=== PATIENT | female | born 1930 | race Caucasian/White ===

== ENCOUNTER 2016-07-30 11:05 | Inpatient (IN) | payer MEDICARE ==
[2016-07-30] MEDS ORDERED: Acetaminophen TAB* 325 MG PO ONE (11:13)
[2016-07-30] MEDS ORDERED: Ciprofloxacin 400MG IVPREMIX(* 400 MG/200 ML BAG IVPB ONE (11:15)
[2016-07-30] MEDS ORDERED: Vancomycin(*) 1,000 MG in NS 0.9% 250 ML* 250 ML IVPB ONE (11:16)
[2016-07-30] MEDS ORDERED: metroNIDAZOLE IV 500 MG/100ML* 500 MG/100 ML BAG IVPB ONE (11:16)
[2016-07-30 11:41] LABS: Hematocrit 39 % (35-47); Hemoglobin 12.3 g/dl (12.0-16.0); Mean Corpuscular HGB Conc 32 g/dl (31-36); Mean Corpuscular Hemoglobin 30 pg (27-31); Mean Corpuscular Volume 94 fL (80-97); Mean Platelet Volume 10 um3 (7.4-10.4); Red Blood Count 4.11 10^6/ul (4.0-5.4); Red Cell Distribution Width 15 % (10.5-15); White Blood Count 22.4 10^3/ul (3.5-10.8)
[2016-07-30 11:45] LABS: Add Diff/Slide Review? Slide Review Added; Comments Flag Yes
[2016-07-30] MEDS: NS 0.9% 1000 ML* 3,000 ML IV ONE ×6 (11:49→13:52)
[2016-07-30 11:58] LABS: Albumin 2.8 g/dL (3.2-5.2); BUN/Creatinine Ratio 14.5 (8-20); C Reactive Protein 180.92 mg/L (< 5.00); Calcium 8.2 mg/dL (8.6-10.3); EGFR African American 31.9 (>60); EGFR Non-African American 24.8 (>60); Globulin 2.1 g/dL (2-4); Potassium 3.8 mmol/L (3.5-5.0); Total Bilirubin 1.2 mg/dL (0.2-1.0); Total Protein 4.9 g/dL (6.4-8.9)
[2016-07-30 12:00] LABS: Urine Bacteria Absent (Absent); Urine Bilirubin Negative (Negative); Urine Glucose Negative (Negative); Urine Nitrite Negative (Negative)
[2016-07-30 12:05] LABS: Troponin I 0.16 ng/mL (<0.04)
--- NOTE | 2016-07-30 12:13 | RAD ---
INDICATION: Cough. Fever. Sepsis COMPARISON: February 01, 2016 TECHNIQUE: An AP portable view obtained at 1140 hours is submitted. FINDINGS: Bones/Soft Tissues: There are no acute bony findings. Cardiomediastinal: The cardiomediastinal silhouette is normal. Lungs: There are no infiltrates. Pleura: There are no pleural effusions. Other: None IMPRESSION: NO ACTIVE DISEASE.
[2016-07-30 12:15] LABS: Phenytoin 12.5 mcg/mL (10-20)
--- NOTE | 2016-07-30 12:51 | ED ---
Howie Zaldivar Adam, scribed for Silver Kelly MD on 07/30/16 at 1129 . Altered Mental Status - HPI Summary HPI Summary: Pt is an 85 year old female presenting from home [facility]. She was found unresponsive in bed, last seen 3 days ago. Pt has home care Mondays through Fridays. She was tucked in bed on Saturday and then today when the home care came to check on her they found her unresponsive. EMS noted a fever of 103. BP 60. O2 sat 88. HR 120. Minimal verbal response. She was administered IV fluid. Her HR had dropped to 110 and her BP came up to 88. Pt is talking, has no complaints. She is incontinent of stool and urine. Denies CP, SOB, cough, N/V/D , fever, chills. Patient is Level 5 Caveat. History obtained from EMS and family. - History Of Current Complaint Chief Complaint: EDFever Stated Complaint: UNRESPONSIVE Time Seen by Provider: 07/30/16 11:10 Hx Obtained From: Family/Sidehand, EMS Hx From Patient Unobtainable Due To: Altered Mental Status - Level 5 Caveat Onset/Duration: Unknown Timing: Constant Severity Initially: Moderate Severity Currently: Moderate Character: Responsiveness Aggravating Factor(s): Unknown Alleviating Factor(s): Nothing Associated Signs And Symptoms: Positive: Negative - Allergies/Home Medications Allergies/Adverse Reactions: Allergies Allergy/AdvReac Type Severity Reaction Status Date / Time Penicillins [PCN] Allergy Severe anaph Verified 08/26/15 13:45 Zolpidem [From Ambien] Allergy Unknown Verified 08/26/15 13:45 Reaction Details Oxycodone AdvReac Intermediate Nausea Verified 08/26/15 13:45 Rofecoxib [From Vioxx] AdvReac Intermediate Edema Verified 08/26/15 13:45 Solifenacin [From Vesicare] AdvReac Intermediate See Comment Verified 08/26/15 13:45 Home Medications: Home Medications Clotrimazole 1% TOPICAL (NF) [Lotrimin 1% TOPICAL (NF)] 1 applic TOPICAL BID PRN 07/30/16 [History Confirmed 07/30/16] Fluticasone Propionate [Cutivate] 0.05 % TOPICAL BID PRN 07/30/16 [History Confirmed 07/30/16] Nystatin TOP POWDER* 1 applic TOPICAL BID 07/30/16 [History Confirmed 07/30/16] Senna TAB* [Senokot TAB*] 3 tab PO DAILY 07/30/16 [History Confirmed 07/30/16] PMH/Surg Hx/FS Hx/Imm Hx Endocrine/Hematology History: Denies: Hx Anticoagulant Therapy, Hx Blood Disorders, Hx Blood Transfusions, Hx Bone Marrow Disease, Hx Diabetes, Hx Systemic Lupus Erythematosus, Hx Sickle Cell Disease, Hx Thyroid Disease, Hx Anemia, Hx Unexplained Bleeding, Other Endocrine/Hematological Disorders Cardiovascular History: Reports: Hx Hypertension Denies: Hx Angina, Hx Angioplasty, Hx Auto Implanted Cardiovert Defib, Hx Cardiac Arrest, Hx Cardiomegaly, Hx Congenital Heart Disease, Hx Congestive Heart Failure, Hx Coronary Artery Disease, Hx Deep Vein Thrombosis, Hx Hypercholesterolemia, Hx Hypotension, Hx Pacemaker/ICD, Hx Peripheral Vascular Disease, Hx Rheumatic Fever, Hx Syncope, Hx Valvular Heart Disease, Other Cardiovascular Problems/Disorders Respiratory History: Denies: Hx Asthma, Hx Chronic Bronchitis, Hx Chronic Obstructive Pulmonary Disease (COPD), Hx Cystic Fibrosis, Hx Lung Cancer, Hx Pleural Effusion, Hx Pneumonia, Hx Pulmonary Edema, Hx Pulmonary Embolism, Hx Seasonal Allergies, Hx Sleep Apnea, Other Respiratory Problems/Disorders GI History: Denies: Hx Cirrhosis, Hx Crohn's Disease, Hx Diverticulosis, Hx Gall Bladder Disease, Hx Gastroesophageal Reflux Disease, Hx Gastrointestinal Bleed, Hx Hiatal Hernia, Hx Irritable Bowel, Hx Jaundice, Hx Obstructive Bowel, Hx Ileostomy, Hx Pyloric Stenosis, Hx Ulcer, Other GI Disorders History: Denies: Hx Acute Renal Failure, Hx Benign Prostatic Hyperplasia, Hx Chronic Renal Failure, Hx Dialysis, Hx Kidney Infection, Hx Kidney Stones, Other Problems/Disorders Musculoskeletal History: Reports: Hx Arthritis, Hx Back Problems, Hx Osteoporosis, Other Musculoskeletal History Denies: Hx Bursitis, Hx Congenital Bone Abnormalities, Hx Fibromyalgia, Hx Gout, Hx Orthopedic Injury, Hx Scoliosis, Hx Tendonitis Sensory History: Reports: Hx Contacts or Glasses Denies: Hx Cataracts, Hx Eye Injury, Hx Eye Prosthesis, Hx Glaucoma, Hx Macular Degeneration, Hx Vision Problem, Hx Deafness, Hx Hearing Aid, Hx Hearing Problem, Other Sensory Impairments Opthamlomology History: Reports: Hx Contacts or Glasses Denies: Hx Cataracts, Hx Eye Injury, Hx Eye Prosthesis, Hx Glaucoma, Hx Macular Degeneration, Hx Vision Problem, Other Sensory Impairments Neurological History: Reports: Hx Migraine, Hx Seizures, Other Neuro Impairments /Disorders - hx of concussion at 19yrs old Denies: Hx Dementia, Hx Developmental Delay, Hx Headaches, Hx Spinal Cord Injury, Hx Transient Ischemic Attacks (TIA) Psychiatric History: Reports: Hx Depression, Hx Inpatient Treatment, Hx Community Mental Health Tx Denies: Hx Anxiety, Hx Attention Deficit Hyperactivity Disorder, Hx Eating Disorder, Hx Panic Disorder, Hx Post Traumatic Stress Disorder, Hx Schizophrenia , Hx Bipolar Disorder, Hx Suicide Attempt, Hx Substance Abuse, Other Psychiatric Issues/Disorders - Cancer History Hx Chemotherapy: No Hx Radiation Therapy: No - Surgical History Surgery Procedure, Year, and Place: BILAT KNEES, appy, hysterectomy Hx Anesthesia Reactions: No - Immunization History Date of Tetanus Vaccine: unknown Date of Influenza Vaccine: unknown Infectious Disease History: Denies: Hx Clostridium Difficile, Hx Hepatitis, Hx Human Immunodeficiency Virus (HIV), Hx Shingles, Hx Tuberculosis, Traveled Outside the in Last 30 Days - Family History Known Family History: Positive: Other - Negative anxiety, negative depression - Social History Occupation: Retired Lives: Alone - Has home care Mondays through Fridays Alcohol Use: None Hx Substance Use: No Substance Use Type: Reports: None Hx Tobacco Use: No Smoking Status (MU): Never Smoked Tobacco Review of Systems Negative: Fever, Chills Negative: Chest Pain Negative: Shortness Of Breath, Cough Negative: Vomiting, Diarrhea, Nausea Neurological: Other - Decreased responsiveness All Other Systems Reviewed And Are Negative: No - Comments Additional Review of Systems Comments: Level 5 Caveat Physical Exam - Summary Physical Exam Summary: The patient is in mild distress. The skin is pale and diaphoretic. Decreased skin turgor. Not mottled or cyanotic. HEENT: Pupils are equal and reactive. Conjunctivae are clear. Both TM's are normal. No rhinorrhea. Oral mucosa extremely dry. Neck is supple with full range of motion and non-tender. There are no carotid bruits. There is no neck vein distension. Respiratory: Diminished breath sounds. Rales in left bases. Cardiovascular: Heart is tachycardic. Regular rhythm with no murmur. Had radial pulses which were faint. Abdomen: The abdomen is soft and non-tender. There are normal bowel sounds heard in all four quadrants and there is no organomegaly palpated. Musculoskeletal: Capillary refill 4 seconds. Neurological: Patient answers yes and no questions. History of previous stroke - facial droop, difficulty moving all 4 extremities, needs assistance. Psychiatric: The patient has an appropriate affect and does not exhibit any anxiety or depression. Buttocks: Beginning of some breakdown of skin on patient's buttocks, most notably on the left side. No ulcers noted. Incontinence of urine and stool. Stools are brown. Triage Information Reviewed: Yes Vital Signs On Initial Exam: Initial Vitals Pulse Resp BP Pulse Ox 108 22 88/54 95 07/30/16 11:08 07/30/16 11:08 07/30/16 11:08 07/30/16 11:08 Vital Signs Reviewed: Yes Completion Of Physical Exam Limited Due To: Level 5 Diagnostics - Vital Signs Vital Signs Pulse Resp BP Pulse Ox 07/30/16 11:08 108 22 88/54 95 - Laboratory Lab Results: Lab Results 07/30/16 07/30/16 07/30/16 Range/Units 11:19 11:19 11:19 WBC 22.4 H (3.5-10.8) 10^3/ul RBC 4.11 (4.0-5.4) 10^6/ul Hgb 12.3 (12.0-16.0) g/dl Hct 39 (35-47) % MCV 94 (80-97) fL MCH 30 (27-31) pg MCHC 32 (31-36) g/dl RDW 15 (10.5-15) % Plt Count 133 L (150-450) 10^3/ul MPV 10 (7.4-10.4) um3 Neut % (Auto) 91.0 H (38-83) % Lymph % (Auto) 1.7 L (25-47) % Lake % (Auto) 6.9 (1-9) % Eos % (Auto) 0 (0-6) % Baso % (Auto) 0.4 (0-2) % Absolute Neuts (auto) 20.4 H (1.5-7.7) 10^3/ul Absolute Lymphs (auto) 0.4 L (1.0-4.8) 10^3/ul Absolute Monos (auto) 1.5 H (0-0.8) 10^3/ul Absolute Eos (auto) 0 (0-0.6) 10^3/ul Absolute Basos (auto) 0.1 (0-0.2) 10^3/ul Absolute Nucleated RBC 0.01 10^3/ul Nucleated RBC % 0 INR (Anticoag Therapy) 1.32 H (0.89-1.11) APTT 35.2 (26.0-36.3) seconds Sodium 140 (133-145) mmol/L Potassium 3.8 (3.5-5.0) mmol/L Chloride 105 (101-111) mmol/L Carbon Dioxide 23 (22-32) mmol/L Anion Gap 12 H (2-11) mmol/L BUN 28 H (6-24) mg/dL Creatinine 1.93 H (0.51-0.95) mg/dL Est GFR ( Amer) 31.9 (>60) Est GFR (Non-Af Amer) 24.8 (>60) BUN/Creatinine Ratio 14.5 (8-20) Glucose 105 H (70-100) mg/dL Lactic Acid (0.5-2.0) mmol/L Calcium 8.2 L (8.6-10.3) mg/dL Total Bilirubin 1.20 H (0.2-1.0) mg/dL AST 32 (13-39) U/L ALT 11 (7-52) U/L Alkaline Phosphatase 45 (34-104) U/L Total Creatine Kinase 209 (10-223) U/L Troponin I 0.16 H* (<0.04) ng/mL C-Reactive Protein 180.92 H (< 5.00) mg/L Total Protein 4.9 L (6.4-8.9) g/dL Albumin 2.8 L (3.2-5.2) g/dL Globulin 2.1 (2-4) g/dL Albumin/Globulin Ratio 1.3 (1-3) Urine Color Urine Appearance Urine pH (5-9) Ur Specific Comfort (1.010-1.030) Urine Protein (Negative) Urine Ketones (Negative) Urine Blood (Negative) Urine Nitrate (Negative) Urine Bilirubin (Negative) Urine Urobilinogen (Negative) Ur Leukocyte Esterase (Negative) Urine WBC (Auto) (Absent) Urine RBC (Auto) (Absent) Urine Bacteria (Absent) Urine Glucose (Negative) Phenytoin 12.5 (10-20) mcg/mL 07/30/16 07/30/16 Range/Units 11:19 11:35 WBC (3.5-10.8) 10^3/ul RBC (4.0-5.4) 10^6/ul Hgb (12.0-16.0) g/dl Hct (35-47) % MCV (80-97) fL MCH (27-31) pg MCHC (31-36) g/dl RDW (10.5-15) % Plt Count (150-450) 10^3/ul MPV (7.4-10.4) um3 Neut % (Auto) (38-83) % Lymph % (Auto) (25-47) % Lake % (Auto) (1-9) % Eos % (Auto) (0-6) % Baso % (Auto) (0-2) % Absolute Neuts (auto) (1.5-7.7) 10^3/ul Absolute Lymphs (auto) (1.0-4.8) 10^3/ul Absolute Monos (auto) (0-0.8) 10^3/ul Absolute Eos (auto) (0-0.6) 10^3/ul Absolute Basos (auto) (0-0.2) 10^3/ul Absolute Nucleated RBC 10^3/ul Nucleated RBC % INR (Anticoag Therapy) (0.89-1.11) APTT (26.0-36.3) seconds Sodium (133-145) mmol/L Potassium (3.5-5.0) mmol/L Chloride (101-111) mmol/L Carbon Dioxide (22-32) mmol/L Anion Gap (2-11) mmol/L BUN (6-24) mg/dL Creatinine (0.51-0.95) mg/dL Est GFR ( Amer) (>60) Est GFR (Non-Af Amer) (>60) BUN/Creatinine Ratio (8-20) Glucose (70-100) mg/dL Lactic Acid 3.9 H* (0.5-2.0) mmol/L Calcium (8.6-10.3) mg/dL Total Bilirubin (0.2-1.0) mg/dL AST (13-39) U/L ALT (7-52) U/L Alkaline Phosphatase (34-104) U/L Total Creatine Kinase (10-223) U/L Troponin I (<0.04) ng/mL C-Reactive Protein (< 5.00) mg/L Total Protein (6.4-8.9) g/dL Albumin (3.2-5.2) g/dL Globulin (2-4) g/dL Albumin/Globulin Ratio (1-3) Urine Color Izabella Urine Appearance Turbid Urine pH 7.0 (5-9) Ur Specific Comfort 1.016 (1.010-1.030) Urine Protein 2+(100 mg/dl) H (Negative) Urine Ketones Trace H (Negative) Urine Blood 1+ H (Negative) Urine Nitrate Negative (Negative) Urine Bilirubin Negative (Negative) Urine Urobilinogen Negative (Negative) Ur Leukocyte Esterase 2+ H (Negative) Urine WBC (Auto) 3+(>20/hpf) H (Absent) Urine RBC (Auto) 1+(3-5/hpf) H (Absent) Urine Bacteria Absent (Absent) Urine Glucose Negative (Negative) Phenytoin (10-20) mcg/mL Result Diagrams: 07/30/16 11:19 07/30/16 11:19 Lab Statement: Any lab studies that have been ordered have been reviewed, and results considered in the medical decision making process. - Radiology CXR Radiology Interpretation Completed By: Radiologist - IMPRESSION: NO ACTIVE DISEASE. - EKG 11:07 Cardiac Rate: Tachycardia - 108 BPM EKG Rhythm: Sinus Tachycardia EKG Interpretation: No ST elevation - Additional Comments Diagnostic Additional Comments: Troponin I - 0.16 Lactic Acid - 3.9 Re-Evaluation - Re-Evaluation First Eval Re-Evaluation Time: 11:54 - Pt is looking better. Has radial pulse. She is more alert. She c/o chills. Change: Improved Altered Mental Statu Course/Dx - Course Course Of Treatment: Patient will be started on IV abx.x 3 for sepsis of unknown source-Flagyl, Vancomycin and Cipro. She was adminstered 3 liters of normal saline and given tylenol for her fever. this is a critcally ill patient who will be admitted to the ICU with sepsis. 11:59 - BP is 77 palpable with radial pulses. - Diagnoses Differential Diagnosis/HQI/PQRI: Hyperthermia, Hypoxia, Metabolic Disorder, Sepsis, Other - pneumonia, urinary tract infection, hypotension, Discharge Diagnoses: Sepsis, Hypotension, Fever - Provider Notifications Discussed Care Of Patient With: Dr. Hernandez (hospitalist) at 12:06. Patient will be admitted. - Critical Care Time Critical Care Time: 30-74 min - 45 minutes Discharge - Discharge Plan Condition: Stable Disposition: ADMITTED TO [facility] Referrals: Shaun Crouch MD [Primary Care Provider] - The documentation as recorded by the Howie wilson Adam accurately reflects the service I personally performed and the decisions made by me, Silver Kelly MD.
[2016-07-30] MEDS ORDERED: Cefepime(*) 2 GM in NS 0.9% 50 ML* 50 ML IVPB SCH (13:00)
[2016-07-30] MEDS ORDERED: Vancomycin per Pharmacy* NOTE FOLLOW UP PRN (13:14)
[2016-07-30] MEDS ORDERED: Norepinephrine 16MCG/ML IVPRE* 4,000 MCG/250 ML BAG IV ONE (13:20)
[2016-07-30] MEDS ORDERED: Hydrocortisone INJ* 100 MG VIAL ONE (13:20)
[2016-07-30] MEDS: Hydrocortisone INJ* 100 MG VIAL IV SCH ×2 (13:22→21:57)
[2016-07-30] MEDS: Norepinephrine 16MCG/ML IVPRE* 4,000 MCG/250 ML BAG IV SCH ×2 (13:22→20:48)
[2016-07-30 13:27] LABS: Immature Granulocytes 10 % (0-9); Metamyelocytes % 1 % (0-2); Neutrophil % 87 % (38-83); RBC Morphology Normal (Normal)
[2016-07-30] MEDS ORDERED: Vancomycin(*) 1,250 MG in NS 0.9% 250 ML* 250 ML IVPB ONE (14:00)
[2016-07-30] MEDS: NS 0.9% 1000 ML* 1,000 ML IV SCH ×2 (15:35→20:40)
--- NOTE | 2016-07-30 16:00 | PN ---
Progress Note - Progress Note Note: CRITICAL CARE MEDICINE Date: 07/30/16 Time: 1400 Patient seen and discussed with COMMODITY TRADER. Agree with transfer professor findings and assessment. Vital signs: Reviewed. LABS: Reviewed. IMAGING: Reviewed. MEDICATIONS: Reviewed. ASSESSMENT/PLAN: 85 F with septic shock sec to uti. Perfusion is equilibrating. Intravasc dry and being met with bolus orders and then IVF continued. Component of vasodilation and evenmoreso relative adrenal insuff. Would place on peripheral levophed and give stress dose steroids. Will need a little time with levo but then should be able to come off with adequate Uout and LA clearance. BP likely to be on low end even at baseline. SBP over 90 for now should be adequate. Broad spectrum abx as is until cx f/u. Pt expresses understanding with plans of care. We discussed avoidance of central line and machines which she is in favor of declining as well. Further plan and care per COMMODITY TRADER's note and orders. Supportive and preventative care as ordered. Disposition: ICU, Level 2 Code Status: DNR/DNI Clarence. Harrison Mack DO
[2016-07-30] MEDS ORDERED: NS 0.9% 50 ML* 50 ML ONE (17:10)
[2016-07-30] MEDS: Heparin VIAL(*) 5000 UNITS/ML VIAL (FIVE THOUSAND) SUBCUT SCH ×2 (17:13→21:57)
--- NOTE | 2016-07-30 20:36 | RAD ---
INDICATION: Abdominal pain. COMPARISON: There are no prior studies available for comparison. TECHNIQUE: A CT scan of the abdomen and pelvis was performed without intravenous or oral contrast. Contiguous axial sections were obtained from the lung bases through the symphysis pubis. Images were reconstructed in the coronal and sagittal planes. FINDINGS: There are small dependent bilateral lower lobe infiltrates. No pleural effusion is present. The liver and spleen are normal in size. The liver is decreased in attenuation consistent with fatty infiltration. No significant focal abnormality seen on this noncontrast study. No calcified gallstones are seen. The pancreas appears atrophic and otherwise unremarkable. The adrenal glands are mildly enlarged suggestive of adrenal gland hyperplasia. There are several left renal calculi measuring up to 0.8 cm in size. In addition there are 2 calculi present in the proximal left ureter approximately at the ureteropelvic junction measuring 1.0 x 0.5 and 0.5 x 0.3 cm each. These are causing [id number] hydronephrosis. There is also mild increased density present within the renal pelvis possibly representing hemorrhage although nonspecific. There is a catheter within the urinary bladder. There also appears to be a calculus within the bladder on the right side measuring 1.6 x 0.9 cm in size. The aorta is normal in caliber with moderate calcific plaque present. No significant enlarged retroperitoneal lymph nodes are seen. The stomach, small and large bowel appear nondistended. There is distention of the rectum which is filled with stool. There is no evidence for diverticulitis or colitis. No free intraperitoneal air or fluid is seen. The bones appear osteoporotic. No significant focal osseous abnormality is seen. The results of this exam were called to the referring clinician. IMPRESSION: 1. LEFT RENAL CALCULI AND CALCULI AT THE URETEROPELVIC JUNCTION CAUSING [id number] HYDRONEPHROSIS. 2. BLADDER CALCULUS. 3. FECAL IMPACTION.
[2016-07-30] MEDS: Phenytoin CAP(*) 100 MG CAP.ER PO SCH (21:57)
[2016-07-30] MEDS: OLANzapine TAB* 5 MG PO SCH (22:58)
--- NOTE | 2016-07-31 00:16 | HP ---
HISTORY AND PHYSICAL: DATE OF ADMISSION: 07/30/16 PRIMARY CARE PROVIDER: Eli Zazueta MD ATTENDING PHYSICIAN WHILE IN THE HOSPITAL: Dr. Nereida Swift *(report dictated by Sagar Rizzo NP) CONSULTING PULP MILL SUPERVISOR: Dr. Mack. CHIEF COMPLAINT: Weakness. HISTORY OF PRESENT ILLNESS: Mrs. Adams is an 85-year-old female who has been bedridden for about 5 years ever since a significant fall with residual right lower extremity weakness. She carries a history according to the family a history of arthritis, seizures, obesity, and hypertension, in addition to this, history of B12 deficiency. She came into the ER today because over the weekend , the family had noted that she had gotten progressively weaker. She really was not eating or drinking. Her appetite had been down and she had an episode where she was not feeling good and she just would not get out of bed. She typically gets out of bed with the help of her aide, who is her surrogate decision maker. The patient states that to her knowledge, she has not had any fever. She does feel weak and tired, and she denies having any abdominal pain. She says she has had some worsening back pain, but she does not certainly say to what side and she says she always has back pain, so she is unsure if this is new or a change. She did admit to having some dysuria and frequency. She had been declining over the entire weekend, just not feeling well. She denied any respiratory symptoms such as cough, sore throat, congestion, and rhinorrhea. She denied having any abdominal pain and again no vomiting or diarrhea. She was concerned, came into the ER, was evaluated and found to be in septic shock. In addition to this, found to be in multisystem organ failure. Because of this, the hospitalist service was asked to evaluate for admission. PAST MEDICAL HISTORY: Significant for: 1. Hypertension. 2. Arthritis. 3. Seizures. 4. Chronic back pain. 5. Obesity. 6. B12 deficiency. PAST SURGICAL HISTORY: She has had a right and left total knee replacement. She has had a total abdominal hysterectomy with a bilateral salpingo- oophorectomy and she has had an appendectomy. HOME MEDICATIONS: According to the patient includes: 1. Senna 3 tablets daily. 2. Meclizine 25 mg p.o. t.i.d. as needed. 3. B12 1000 mcg daily. 4. D3 2000 mg daily. 5. Tylenol 650 mg 4 times a day as needed. 6. Milk of mag 15 to 30 cc p.o. every other day as needed. 7. Cutivate 0.05% topically b.i.d. as needed. 8. Lotrimin 1 application topically b.i.d. as needed. 9. Tramadol 50 to 100 mg p.o. t.i.d. as needed. 10. Zoloft 200 mg daily. 11. Zyprexa 5 to 10 mg at bedtime. 12. Nystatin powder 1 application topically b.i.d. 13. Klonopin 1 mg p.o. at bedtime. 14. Phenantoin 100 mg p.o. b.i.d. ALLERGIES TO MEDICATIONS: Include PENICILLIN, AMBIEN, OXYBUTYNIN, VIOXX, and she is also allergic to VESICARE. FAMILY HISTORY: Her mother at the age of 99 from old age according to her. Father had a history of stroke. SOCIAL HISTORY: She does not smoke, she does not drink. Her surrogate decision makers are Rashaun and Wolfgang. REVIEW OF SYSTEMS: There is no documented fever. She denied having any significant weight change. There was no double vision. She denies having any ear discharge. There is no rhinorrhea. She denies having any chest pain. No shortness of breath. Denied having any cough. There is no abdominal pain. There was no nausea, no vomiting. There was dysuria. There was no frequency. No seizures. The family does admit though that she had been shaking at times throughout the weekend, although she was conscious and talking during these whole events. She denied having any seizure like activity. No loss of consciousness. No skin ulcerations. Review of 14 systems completed and all others negative. PHYSICAL EXAMINATION GENERAL: At this time, Mrs. Adams is an 85-year-old female patient. She is sitting in the ER stretcher. She does not appear to be in any acute distress. She is awake and she is alert. She appears well-nourished and well-developed. VITAL SIGNS: Blood pressure of 68/44 with a pulse of 98, her temperature is 100.9, respirations 24, O2 sat 94%. HEENT: Head is atraumatic and normocephalic. Eyes: Sclerae is anicteric. Pupils react to light. Throat: Oral mucosa appeared to be dry. NECK: Supple. 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 LUNGS: Clear to auscultation. There were no wheezes, rales, or rhonchi. HEART: S1 and S2. Regular rate and rhythm. No murmurs, rubs, or gallops. ABDOMEN: Soft, flat, and nontender. Bowel sounds present. EXTREMITIES: Pulses 2+ throughout. She is able to move all 4 extremities. 5/ 5 strength. NEUROLOGIC: The patient is awake, she is alert, she is oriented x3. She had no gross focal deficits. SKIN: She does have stage 2 pressure ulcers to her sacrum. Otherwise, no other open areas. She did have some CVA tenderness on the back. LABORATORY DATA: Revealed a WBC of 22.4, RBC of 4.11, hemoglobin 12.3, hematocrit of 39, and platelet count of 133. The INR was 1.32, PTT of 35.2. Sodium 140, potassium 3.8, chloride of 105, CO2 23, BUN 28, creatinine 1.93, the glucose was 105, the lactic was 3.9, calcium 8.2. Total bili 1.3, AST 32, ALT 11, alk phos 45. CK 209, troponin 0.16. CRP of 192, albumin of 2.8. Urine showed 2+ proteins, trace ketones, 1+ blood, 2+ leukocyte esterase, and 3+ wbc. Toxicology, again her Phenytoin was 12.5. Serology was negative for flu. She did have a chest x-ray obtained today, which revealed no active disease. She did have an EKG obtained today, which shows a sinus tachycardia, rate of 108. No ST elevations or T-wave inversions were noted. Old medical records reviewed. ASSESSMENT AND PLAN: Mrs. Adams is an 85-year-old female patient coming into the today with complaints of weakness, found to be in septic shock. She will be admitted under inpatient status for: 1. Septic shock. At this point, again lactic is 3.9 and despite a 3 L bolus, her blood pressure has remained in the 70s. I did touch base with Dr. Mack who will be evaluating the patient. She also has multisystem organ failure. She appears to be mildly encephalopathic. In addition to this, she also does have an elevated troponin which is probably from demand ischemia and she appears to be in acute renal failure. I think the source of the infection is probably from her urine. She may have a pyelonephritis, but I think I am going to go ahead and put her on cefepime. In addition to this, we will put her vanco. I am going to give her an additional 3 liters of fluid as she does appear to be profoundly dehydrated. Give her some stress dosed steroid. In addition to this, will start her on Levophed peripherally per the direction of Dr. Mack and we will continue to follow and he has consulted on the patient. I did discuss in length with the patient that she could deteriorate, possibly requiring intubation or she could suffer a cardiac arrest and at this point, she said that she would like to forego intubation and in addition to this forego CPR. She is a DNR /DNI. We will trend her lactics to make sure they are trending down. She was 3.9. 2. Hypertension, she is actually hypotensive. We will hold those medications. 3. Chronic pain. For the time being, I am just going to order Tylenol because she is mildly encephalopathic. I do not want her getting narcotics. 4. Seizures. I have ordered seizure precautions. We will continue her Phenytoin. 5. Fluids, electrolytes, and nutrition. She can have a clear liquid diet. 6. Acute renal failure. This is probably a component of acute tubular necrosis secondary to sepsis. We will hold nephrotoxic agents, we will hydrate her, we will send off a FENa. We are getting a CT of the abdomen when she is stable to make sure there is no obstructive uropathy, although I doubt there is because she is not in a lot of pain. 7. Elevated troponin. It is probably secondary to demand ischemia due to the severe sepsis. At this point, I will trend these and monitor. We may need to get an echo at some point. 8. DVT prophylaxis. She will be placed on heparin subcu. 9. Code status, she is a DNR/DNI. 10. Fluids, electrolytes, and nutrition. She will have clear liquid diet for the time being. TIME SPENT: Time spent on this admission was critical care time and was approximately 70 minutes, greater than half the time spent [id number] with the patient going over the plan of care with the patient, implementing the plan of care. I did discuss the plan of care with my attending Dr. Swift and I also discussed the case with Dr. Mack, they are in agreement. SAGAR RIZZO NP CC: Eli Zazueta MD; Dr. Mack* [id number]/[facility] #: [id number] MTDD
--- NOTE | 2016-07-31 00:59 | PN ---
Progress Note - Progress Note Note: Blood CX positive for gram negative rods, on cefepime.
[2016-07-31] MEDS ORDERED: Vancomycin Random Level* NOTE FOLLOW UP ONE (06:00)
[2016-07-31] MEDS: Hydrocortisone INJ* 100 MG VIAL IV SCH ×3 (06:02→21:19)
[2016-07-31] MEDS: Heparin VIAL(*) 5000 UNITS/ML VIAL (FIVE THOUSAND) SUBCUT SCH ×3 (06:03→22:30)
[2016-07-31 06:04] LABS: BUN/Creatinine Ratio 27.1 (8-20); EGFR African American 71.4 (>60); EGFR Non-African American 55.5 (>60); Potassium 3.2 mmol/L (3.5-5.0)
[2016-07-31 07:03] LABS: Hematocrit 33 % (35-47); Hemoglobin 10.6 g/dl (12.0-16.0); Mean Corpuscular HGB Conc 32 g/dl (31-36); Mean Corpuscular Hemoglobin 30 pg (27-31); Mean Corpuscular Volume 94 fL (80-97); Mean Platelet Volume 11 um3 (7.4-10.4); Red Blood Count 3.53 10^6/ul (4.0-5.4); Red Cell Distribution Width 15 % (10.5-15); White Blood Count 23.6 10^3/ul (3.5-10.8)
[2016-07-31 07:04] LABS: Add Diff/Slide Review? Slide Review Added; Comments Flag Yes
[2016-07-31] MEDS: Sertraline* 100 MG TAB PO SCH (08:03)
[2016-07-31] MEDS: Acetaminophen TAB* 325 MG PO PRN (08:03)
[2016-07-31] MEDS: Phenytoin CAP(*) 100 MG CAP.ER PO SCH ×2 (08:04→21:19)
[2016-07-31] MEDS ORDERED: Vancomycin(*) 500 MG in NS 0.9% 250 ML* 250 ML IVPB SCH (09:00)
--- NOTE | 2016-07-31 09:22 | RAD ---
Indication: LEFT hydronephrosis due to a proximal ureteral stone documented on July 30, 2016 CT. Comparison: July 30, 2016 CT. Technique: LEFT unilateral renal ultrasound. Report: 12.2 x 5.0 x 4.9 cm LEFT kidney is remarkable for a 0.6 cm maximum dimension mid pole calyceal stone. There is mild to moderate hydronephrosis similar to the prior CT. The proximal ureteral stone documented on CT is not visualized which may be technical. Normal cortical echogenicity. No focal renal lesions or perinephric fluid evident. IMPRESSION: No significant change in magnitude of LEFT hydronephrosis compared with the CT of one day prior. Urolithiasis.
[2016-07-31] MEDS ORDERED: Nystatin TOP POWDER* 15 GM BTL TOPICAL PRN (10:09)
[2016-07-31] MEDS ORDERED: Potassium Chlor TAB* 20 MEQ TAB.ER PO ONE ×2 (10:10→15:06)
[2016-07-31] MEDS: cefTRIAXone VIAL(*) 1,000 MG in NS 0.9% 50 ML* 50 ML IVPB SCH (11:00)
[2016-07-31] MEDS: traMADol TAB* 50 MG PO PRN ×2 (12:02→21:19)
[2016-07-31] MEDS ORDERED: oxyCODONE TAB* 5 MG TAB PO PRN (15:04)
[2016-07-31] MEDS: Gabapentin CAP(*) 100 MG PO PRN (15:12)
--- NOTE | 2016-07-31 15:15 | PN ---
Progress Note - Progress Note Note: CRITICAL CARE MEDICINE Date: 07/31/16 Time: 1400 SUBJECTIVE: Patient seen and examined. Feels better. PHYSICAL EXAM: Vital Signs: Reviewed. coming off levo. sbp ~80 Neurologic: awake, comm, at baseline. HEENT: pupils equal. Sclera anicteric. Trachea midline. Cardiovascular: S1 S2 Respiratory: clear, non-labored; nc Abdomen: Soft, nt. No r/g/r. Extremities: Warm. Access: piv LABS: Reviewed. IMAGING: Reviewed. MEDICATIONS: Reviewed. ASSESSMENT: 85 F with Septic shock sec to ecoli uti Left Urolithiasis Left Mild hydronephrosis ANTOINE - recovering Relative shanique pabon HTN, OA, seizure disorder PLAN: Neurologic: well. chronic pains. Cardiovascular: perfusing. vol status met. can come off ivf. wean off pressors. maintain sbp >80. Respiratory: edilson. wean on O2. Gastrointestinal: po diet. Renal/Metabolic: recovering function. replete lytes. has urolitiasis with mild hydro. no indication at this time for perc drain and let abx function for now and shock recovery and then ask urology to see and whether stent needed. Infectious Disease: de-escalate to C3 for now and f/u ecoli sens. Hematology: stable. Endocrine: stress dose steroids. Musculoskeletal: wound care needs Psych/Social: good spirits. Supportive and preventative care as ordered. SUP: po VTE prophylaxis: heparin Carr catheter given critical illness, monitoring needs for accurate assessment of ANTOINE and KDIGO criteria for critically ill patients and to avoid potential harms of urinary retention, skin breakdown/ulcers. Disposition: ICU, perhaps floor later today or tomorrow Code Status: DNR, DNI, no central line Critical Care Time: 30min Shy Mack DO
[2016-07-31] MEDS ORDERED: Phytonadione Oral Solution* 5 MG/25 ML UDC PO ONE (16:15)
--- NOTE | 2016-07-31 16:55 | PN ---
Progress Note - Progress Note Note: CRITICAL CARE MEDICINE Date: 07/31/16 Time: 1500 D/w Urology and reviewed scans. They prefer pt receive perc drain sooner rather then later, and as she is not a good anesthesia candidate currently would hold off on any stenting for now. She has clinically improved but may have lingering course. D/w IR and they will kindly place Left perc neprhrostomy drain. D/w pt and she will consent. clinically tolerating. peripheral levo if need to maintain sbp >90. Disposition: ICU today Code Status: DNR, DNI, no central line. Critical Care Time: 10min Shy Mack DO
[2016-07-31] MEDS ORDERED: fentaNYL* 50 MCG/ML 2 ML VIAL (100 MCG VIAL) ONE (17:32)
--- NOTE | 2016-07-31 19:29 | RAD ---
INDICATION: Planned left kidney percutaneous nephrostomy COMPARISON: CT abdomen pelvis dated July 30, 2016 and left renal ultrasound dated July 31, 2016 acquired at 0840 hours TECHNIQUE: Limited ultrasound images of the left kidney were acquired with saldana scale and Doppler color flow imaging. FINDINGS: Preliminary imaging of the left kidney was acquired prior to planned percutaneous nephrostomy. There is no significant hydronephrosis or calyceal dilatation. The dilatation of the left renal pelvis appears to have resolved when compared to the ultrasound acquired at 0840 hours on the same date. In light of the patient's clinical improvement with intravenous antibiotics placement of a percutaneous catheter was deferred. IMPRESSION: Interval resolution of left renal collecting system enlargement relative to the ultrasound acquired on the same day at 0840 hours. The percutaneous nephrostomy catheter was deferred at this time. Ultrasound imaging and change in surgical plan was discussed with Dr. Mack over the telephone shortly after the images were acquired.
[2016-07-31] MEDS: OLANzapine TAB* 5 MG PO SCH (21:20)
[2016-08-01] MEDS: Hydrocortisone INJ* 100 MG VIAL IV SCH ×3 (05:51→20:51)
[2016-08-01] MEDS: Heparin VIAL(*) 5000 UNITS/ML VIAL (FIVE THOUSAND) SUBCUT SCH ×3 (05:51→21:51)
[2016-08-01 06:13] LABS: Hematocrit 32 % (35-47); Hemoglobin 10.4 g/dl (12.0-16.0); Mean Corpuscular HGB Conc 33 g/dl (31-36); Mean Corpuscular Hemoglobin 31 pg (27-31); Mean Corpuscular Volume 93 fL (80-97); Mean Platelet Volume 10 um3 (7.4-10.4); Red Cell Distribution Width 15 % (10.5-15); White Blood Count 12.7 10^3/ul (3.5-10.8)
[2016-08-01 06:14] LABS: Comments Flag Yes
[2016-08-01 06:18] LABS: Add Diff/Slide Review? Slide Review Added
[2016-08-01 06:29] LABS: BUN/Creatinine Ratio 37.9 (8-20); Calcium 7.2 mg/dL (8.6-10.3); EGFR Non-African American 85.5 (>60); Magnesium 1.5 mg/dL (1.9-2.7); Phosphorus 1.9 mg/dL (2.5-5.0); Potassium 4.9 mmol/L (3.5-5.0)
[2016-08-01] MEDS: Sertraline* 100 MG TAB PO SCH (08:01)
[2016-08-01] MEDS: Phenytoin CAP(*) 100 MG CAP.ER PO SCH ×2 (08:01→20:50)
[2016-08-01] MEDS ORDERED: Magnesium Sulf 4 GM/100 ML IV* 4,000 MG/100 ML BAG IVPB ONE (09:05)
[2016-08-01] MEDS: Ondansetron INJ* 2 MG/ML VIAL IV PRN ×2 (09:12→18:26)
[2016-08-01] MEDS: Potassium & Sodium Phos 250MG* = 1 PACKET PO SCH ×3 (09:43→20:51)
[2016-08-01] MEDS: cefTRIAXone VIAL(*) 1,000 MG in NS 0.9% 50 ML* 50 ML IVPB SCH (10:44)
--- NOTE | 2016-08-01 11:42 | PN ---
Progress Note - Progress Note Note: CRITICAL CARE MEDICINE Date: 08/01/16 Time: 1100 SUBJECTIVE: Patient seen and examined. Feels ok. slept well. D/w Dr. Fuller last evening regarding perc drain and we agreed to abort and watch overnight. PHYSICAL EXAM: Vital Signs: Reviewed. off levo. sbp ~100 Neurologic: awake, comm, at baseline. HEENT: pupils equal. Sclera anicteric. Trachea midline. Cardiovascular: S1 S2 Respiratory: clear, non-labored; nc Abdomen: Soft, nt. No r/g/r. Extremities: Warm. Access: piv LABS: Reviewed. IMAGING: Reviewed. MEDICATIONS: Reviewed. ASSESSMENT: 85 F with Septic shock sec to ecoli uti Left Urolithiasis and obstrucitve uropathy Left Mild hydronephrosis ANTOINE - recovering Relative adrneal insuff HTN, OA, seizure disorder PLAN: Neurologic: chronic pains. Cardiovascular: perfusing. vol status met. but going back to npo. should stay off pressors. maintain sbp >80. Respiratory: edilson. wean off O2. Gastrointestinal: po diet held for stent Renal/Metabolic: recovering function. replete lyced. d/w urology and they will kindly place stent later today. obviously she may need a little vasopressor and could vasodilate from procedure and can remain in ICU for observation. Infectious Disease: C3 for ecoli/proteus. Hematology: stable. Endocrine: stress dose steroids continued Musculoskeletal: wound care needs for chronic breakdown Psych/Social: good spirits. Supportive and preventative care as ordered. SUP: po VTE prophylaxis: heparin Carr catheter given critical illness, monitoring needs for accurate assessment of ANTOINE and KDIGO criteria for critically ill patients and to avoid potential harms of urinary retention, skin breakdown/ulcers. Disposition: ICU, perhaps floor later today or tomorrow Code Status: DNR, DNI, no central line She is at moderate to high risk for moderate risk procedure, and she agrees to risk and procedure. Medically stable by me for needed procedure. Critical Care Time: 30min Shy Mack DO
[2016-08-01] MEDS ORDERED: Iohexol 180 (CONTRAST) 10 ML SDV IV ONE (16:34)
[2016-08-01] MEDS ORDERED: fentaNYL* 50 MCG/ML 2 ML VIAL (100 MCG VIAL) ONE (16:56)
[2016-08-01] MEDS ORDERED: Midazolam* 1 MG/ML 2 ML VIAL (2 MG) ONE (16:56)
[2016-08-01] MEDS ORDERED: Propofol* 10 MG/ML 20 ML BTL IV PUSH ONE (17:01)
--- NOTE | 2016-08-01 18:35 | RAD ---
CPT II Codes: 6045F. Indication: Left hydronephrosis. 20 seconds of fluoroscopy time was used. There is left hydronephrosis with a filling defect in the left proximal ureter. There is placement of a left ureteral stent. IMPRESSION: Left ureteral stent. Filling defect in the proximal left ureter.
[2016-08-01] MEDS: traMADol TAB* 50 MG PO PRN (20:06)
[2016-08-01] MEDS: OLANzapine TAB* 5 MG PO SCH (20:50)
[2016-08-02] MEDS: Acetaminophen TAB* 325 MG PO PRN ×2 (00:21→13:34)
[2016-08-02] MEDS: Hydrocortisone INJ* 100 MG VIAL IV SCH (05:01)
[2016-08-02 05:30] LABS: Hematocrit 33 % (35-47); Hemoglobin 10.6 g/dl (12.0-16.0); Mean Corpuscular HGB Conc 32 g/dl (31-36); Mean Corpuscular Hemoglobin 30 pg (27-31); Mean Corpuscular Volume 94 fL (80-97); Mean Platelet Volume 12 um3 (7.4-10.4); Red Blood Count 3.52 10^6/ul (4.0-5.4); Red Cell Distribution Width 16 % (10.5-15); White Blood Count 12.1 10^3/ul (3.5-10.8)
[2016-08-02 05:44] LABS: Calcium 7.8 mg/dL (8.6-10.3); EGFR African American 125.2 (>60); EGFR Non-African American 97.3 (>60); Magnesium 2.3 mg/dL (1.9-2.7); Phosphorus 2.1 mg/dL (2.5-5.0)
[2016-08-02] MEDS: Heparin VIAL(*) 5000 UNITS/ML VIAL (FIVE THOUSAND) SUBCUT SCH ×3 (05:57→21:46)
[2016-08-02] MEDS: Potassium & Sodium Phos 250MG* = 1 PACKET PO SCH (08:07)
[2016-08-02] MEDS: Phenytoin CAP(*) 100 MG CAP.ER PO SCH ×2 (08:07→21:46)
[2016-08-02] MEDS: Sertraline* 100 MG TAB PO SCH (08:07)
[2016-08-02] MEDS ORDERED: Vancomycin Trough Check NOTE FOLLOW UP ONE (08:30)
[2016-08-02] MEDS: predniSONE TAB* 20 MG PO SCH (10:01)
[2016-08-02] MEDS: cefTRIAXone VIAL(*) 1,000 MG in NS 0.9% 50 ML* 50 ML IVPB SCH (10:02)
--- NOTE | 2016-08-02 11:26 | PN ---
Progress Note - Progress Note Note: CRITICAL CARE MEDICINE Date: 08/02/16 Time: 1100 SUBJECTIVE: Patient seen and examined. Feels ok. slept. PHYSICAL EXAM: Vital Signs: Reviewed. Neurologic: awake, comm, at baseline. HEENT: pupils equal. Sclera anicteric. Trachea midline. Cardiovascular: S1 S2 Respiratory: clear Abdomen: Soft, nt. No r/g/r. Extremities: Warm.. Inc 2+ edema Access: piv LABS: Reviewed. IMAGING: Reviewed. MEDICATIONS: Reviewed. ASSESSMENT: 85 F with Septic shock sec to ecoli uti - resolving Left Urolithiasis and obstrucitve uropathy - now post stent 08/01 Left Mild hydronephrosis ANTOINE - recovered Relative adrneal insuff sec to sepsis- on steroids. HTN, OA, seizure disorder PLAN: Neurologic: chronic pains. Cardiovascular: perfusing. vol status up interstitially and allow her to mobilize. Respiratory: well Gastrointestinal: po diet Renal/Metabolic: stable. replete lytes. can f/u with urology as outpt Infectious Disease: C3 for 10-14d for ecoli/proteus uti Hematology: stable. Endocrine: stress dose steroids to taper Musculoskeletal: wound care needs for chronic breakdown Psych/Social: good spirits. Supportive and preventative care as ordered. SUP: po VTE prophylaxis: heparin Carr catheter given critical illness, monitoring needs for accurate assessment of ANTOINE and KDIGO criteria for critically ill patients and to avoid potential harms of urinary retention, skin breakdown/ulcers. Disposition: floor Code Status: DNR, DNI, no central line Critical Care Time: 25min Shy Mack DO
[2016-08-02] MEDS: traMADol TAB* 50 MG PO PRN (14:40)
--- NOTE | 2016-08-02 15:22 | OP ---
DATE OF OPERATION: 08/01/16 - ROOM #412 DATE OF : 34 SURGEON: Gerardo Palomo MD ANESTHESIOLOGIST: Rula Maldonado MD ANESTHESIA: IV sedation with MAC. PRE-OP DIAGNOSES: 1. Urosepsis. 2. Proximal left ureteral calculus. POST-OP DIAGNOSES: 1. Proximal left ureteral calculus. 2. Urosepsis due to above. 3. Bladder calculus. OPERATIVE PROCEDURE: 1. Cystoscopy. 2. Left retrograde pyelography. 3. Placement of left urethral stent (6 B[place]udian) INDICATIONS FOR THE PROCEDURE: Mrs. Adams is an 85-year-old white female who presented with sepsis, was admitted to the ICU and was on pressors to control her blood pressure. A CT of the abdomen and pelvis showed a 1-cm calculus in the proximal left ureter associated with hydronephrosis. The patient improved on antibiotics and fluids. Consultation was obtained with Interventional Radiology who felt that the kidney is not significantly obstructed, and as long as she was improving, they decided to hold off on placement of a nephrostomy tube. The patient is taken to the operating room urgently for placement of a left ureteral stent. PATHOLOGY AT CYSTOSCOPY: The bladder mucosa showed hyperemia. There was a significant degree of trabeculations. She had a cystocele. There was a 1 cm bladder calculus. There was edema in the bladder wall from the probable cystitis and the presence of a Carr catheter. At fluoroscopy a 1 cm radiopaque calculus was noted in the area of the proximal left ureter just distal to the ureteropelvic junction. The stone seemed impacted. There was difficulty introducing the guidewire beyond the stone. The urine from the left kidney was slightly bloody, but was not purulent. DESCRIPTION OF PROCEDURE: With the patient in the lithotomy position, she was prepped and dapped for a cystoscopy. Cystoscopy was performed. The bladder was inspected and the above findings were noted. A flexible tip guidewire was introduced into the left orifice. It bypassed the calculus; however, it could not be introduced into the renal pelvis due to tortuosity of the ureter. An open-ended catheter was then fed on top of the guidewire and positioned just distal to the calculus. A Glidewire was then introduced through the open ended catheter and after several attempts was successfully passed inside the renal pelvis and the tortuosity of the ureter was straightened up. The open ended catheter was then introduced into the renal pelvis. The system was decompressed before any contrast was introduced. A size 6-Bermudian stent was then placed with the proximal end coiling in renal pelvis and the distal end coiling inside the bladder. Because of the general condition of the patient, it was decided not to attempt to remove the bladder calculus at this time. A Carr catheter was placed. The patient tolerated the procedure well and left the operating room in good condition. The plan is to have the patient fully treated for her sepsis. She will be brought at a later date for definitive treatment of the bladder and the left ureteral calculus. [id number]/[facility] #: [id number] MTDD
[2016-08-02] MEDS: Gabapentin CAP(*) 100 MG PO PRN (21:46)
[2016-08-02] MEDS: OLANzapine TAB* 5 MG PO SCH (21:46)
[2016-08-03] MEDS: Heparin VIAL(*) 5000 UNITS/ML VIAL (FIVE THOUSAND) SUBCUT SCH ×3 (06:56→21:18)
[2016-08-03] MEDS: predniSONE TAB* 20 MG PO SCH (09:32)
[2016-08-03] MEDS: Sertraline* 100 MG TAB PO SCH (09:33)
[2016-08-03] MEDS: Phenytoin CAP(*) 100 MG CAP.ER PO SCH ×2 (09:33→20:42)
--- NOTE | 2016-08-03 10:50 | PN ---
Subjective Date of Service: 08/03/16 Interval History: No new c/o. Good appetite. No pain. Can't walk. Objective Active Medications: Acetaminophen (Tylenol Tab*) 650 mg PO Q4H PRN PRN Reason: FEVER/PAIN Last Admin: 08/02/16 13:34 Dose: 650 mg Gabapentin (Neurontin Cap(*)) 100 mg PO BID PRN PRN Reason: NEUROPATHY Last Admin: 08/02/16 21:46 Dose: 100 mg Heparin Sodium (Porcine) (Heparin Vial(*)) 5,000 units SUBCUT Q8HR [facility] Last Admin: 08/03/16 06:56 Dose: 5,000 units Ceftriaxone Sodium 1,000 mg/ (Sodium Chloride) 50 mls @ 200 mls/hr IVPB Q24H [facility] Last Admin: 08/02/16 10:02 Dose: 200 mls/hr Nystatin (Nystatin Top Powder*) 1 applic TOPICAL TID PRN PRN Reason: RASH Last Admin: 07/31/16 11:00 Dose: 1 applic Olanzapine (Zyprexa Tab*) 5 mg PO BEDTIME [facility] Last Admin: 08/02/16 21:46 Dose: 5 mg Ondansetron HCl (Zofran Inj*) 4 mg IV Q6H PRN PRN Reason: NAUSEA Last Admin: 08/01/16 18:26 Dose: 4 mg Phenytoin Sodium (Dilantin Cap(*)) 100 mg PO BID [facility] Last Admin: 08/03/16 09:33 Dose: 100 mg Prednisone (Deltasone Tab*) 40 mg PO DAILY [facility] Last Admin: 08/03/16 09:32 Dose: 40 mg Tramadol HCl (Ultram*) 50 mg PO Q8H PRN PRN Reason: PAIN Last Admin: 08/02/16 14:40 Dose: 50 mg Vital Signs 08/02/16 08/02/16 08/02/16 11:00 11:57 14:40 Temperature 98.9 F 97.3 F Pulse Rate 69 Respiratory 18 16 16 Rate Blood Pressure 95/60 106/58 (mmHg) O2 Sat by Pulse 98 100 Oximetry 08/02/16 08/02/16 08/02/16 15:24 16:40 19:53 Temperature Pulse Rate 68 69 Respiratory 16 16 Rate Blood Pressure 100/54 98/51 (mmHg) O2 Sat by Pulse 98 96 Oximetry 08/02/16 08/02/16 08/02/16 20:08 21:46 23:46 Temperature Pulse Rate Respiratory 16 16 16 Rate Blood Pressure (mmHg) O2 Sat by Pulse 96 Oximetry 08/03/16 08/03/16 08/03/16 00:06 03:42 08:21 Temperature 98.3 F 97.9 F Pulse Rate 68 66 70 Respiratory 16 16 16 Rate Blood Pressure 88/47 105/57 105/60 (mmHg) O2 Sat by Pulse 97 97 93 Oximetry 08/03/16 09:47 Temperature Pulse Rate Respiratory 18 Rate Blood Pressure (mmHg) O2 Sat by Pulse Oximetry Oxygen Devices in Use Now: Nasal Cannula Appearance: Alert, partly up in bed. In good spirits. Looks comfortable. Eyes: No Scleral Icterus Neck: NL Appearance and Movements; NL JVP, No Thyroid Enlargement, Masses Respiratory: Symmetrical Chest Expansion and Respiratory Effort, Clear to Auscultation, Clear to Percussion Extremities: No Clubbing, Cyanosis, - - 1+ edema BL Neurological: Alert and Oriented x 3, NL Sensation, - - Can barely lift L leg off the bed, can't raise R leg. 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 Result Diagrams: 08/02/16 05:15 08/02/16 05:15 Additional Lab and Data: Lab Results 07/30/16 07/30/16 07/30/16 Range/Units 11:19 11:19 11:19 WBC 22.4 H (3.5-10.8) 10^3/ul RBC 4.11 (4.0-5.4) 10^6/ul Hgb 12.3 (12.0-16.0) g/dl Hct 39 (35-47) % MCV 94 (80-97) fL MCH 30 (27-31) pg MCHC 32 (31-36) g/dl RDW 15 (10.5-15) % Plt Count 133 L (150-450) 10^3/ul MPV 10 (7.4-10.4) um3 Neut % (Auto) 91.0 H (38-83) % Lymph % (Auto) 1.7 L (25-47) % [place] % (Auto) 6.9 (1-9) % Eos % (Auto) 0 (0-6) % Baso % (Auto) 0.4 (0-2) % Absolute Neuts (auto) 20.4 H (1.5-7.7) 10^3/ul Absolute Lymphs (auto) 0.4 L (1.0-4.8) 10^3/ul Absolute Monos (auto) 1.5 H (0-0.8) 10^3/ul Absolute Eos (auto) 0 (0-0.6) 10^3/ul Absolute Basos (auto) 0.1 (0-0.2) 10^3/ul Absolute Nucleated RBC 0.01 10^3/ul Nucleated RBC % 0 INR (Anticoag Therapy) 1.32 H (0.89-1.11) APTT 35.2 (26.0-36.3) seconds Sodium 140 (133-145) mmol/L Potassium 3.8 (3.5-5.0) mmol/L Chloride 105 (101-111) mmol/L Carbon Dioxide 23 (22-32) mmol/L Anion Gap 12 H (2-11) mmol/L BUN 28 H (6-24) mg/dL Creatinine 1.93 H (0.51-0.95) mg/dL Est GFR ( Amer) 31.9 (>60) Est GFR (Non-Af Amer) 24.8 (>60) BUN/Creatinine Ratio 14.5 (8-20) Glucose 105 H (70-100) mg/dL Lactic Acid (0.5-2.0) mmol/L Calcium 8.2 L (8.6-10.3) mg/dL Total Bilirubin 1.20 H (0.2-1.0) mg/dL AST 32 (13-39) U/L ALT 11 (7-52) U/L Alkaline Phosphatase 45 (34-104) U/L Total Creatine Kinase 209 (10-223) U/L Troponin I 0.16 H* (<0.04) ng/mL C-Reactive Protein 180.92 H (< 5.00) mg/L Total Protein 4.9 L (6.4-8.9) g/dL Albumin 2.8 L (3.2-5.2) g/dL Globulin 2.1 (2-4) g/dL Albumin/Globulin Ratio 1.3 (1-3) Urine Color Urine Appearance Urine pH (5-9) Ur Specific [place] (1.010-1.030) Urine Protein (Negative) Urine Ketones (Negative) Urine Blood (Negative) Urine Nitrate (Negative) Urine Bilirubin (Negative) Urine Urobilinogen (Negative) Ur Leukocyte Esterase (Negative) Urine WBC (Auto) (Absent) Urine RBC (Auto) (Absent) Urine Bacteria (Absent) Urine Glucose (Negative) Phenytoin 12.5 (10-20) mcg/mL 07/30/16 07/30/16 Range/Units 11:19 11:35 WBC (3.5-10.8) 10^3/ul RBC (4.0-5.4) 10^6/ul Hgb (12.0-16.0) g/dl Hct (35-47) % MCV (80-97) fL MCH (27-31) pg MCHC (31-36) g/dl RDW (10.5-15) % Plt Count (150-450) 10^3/ul MPV (7.4-10.4) um3 Neut % (Auto) (38-83) % Lymph % (Auto) (25-47) % [place] % (Auto) (1-9) % Eos % (Auto) (0-6) % Baso % (Auto) (0-2) % Absolute Neuts (auto) (1.5-7.7) 10^3/ul Absolute Lymphs (auto) (1.0-4.8) 10^3/ul Absolute Monos (auto) (0-0.8) 10^3/ul Absolute Eos (auto) (0-0.6) 10^3/ul Absolute Basos (auto) (0-0.2) 10^3/ul Absolute Nucleated RBC 10^3/ul Nucleated RBC % INR (Anticoag Therapy) (0.89-1.11) APTT (26.0-36.3) seconds Sodium (133-145) mmol/L Potassium (3.5-5.0) mmol/L Chloride (101-111) mmol/L Carbon Dioxide (22-32) mmol/L Anion Gap (2-11) mmol/L BUN (6-24) mg/dL Creatinine (0.51-0.95) mg/dL Est GFR ( Amer) (>60) Est GFR (Non-Af Amer) (>60) BUN/Creatinine Ratio (8-20) Glucose (70-100) mg/dL Lactic Acid 3.9 H* (0.5-2.0) mmol/L Calcium (8.6-10.3) mg/dL Total Bilirubin (0.2-1.0) mg/dL AST (13-39) U/L ALT (7-52) U/L Alkaline Phosphatase (34-104) U/L Total Creatine Kinase (10-223) U/L Troponin I (<0.04) ng/mL C-Reactive Protein (< 5.00) mg/L Total Protein (6.4-8.9) g/dL Albumin (3.2-5.2) g/dL Globulin (2-4) g/dL Albumin/Globulin Ratio (1-3) Urine Color [place] Urine Appearance Turbid Urine pH 7.0 (5-9) Ur Specific [place] 1.016 (1.010-1.030) Urine Protein 2+(100 mg/dl) H (Negative) Urine Ketones Trace H (Negative) Urine Blood 1+ H (Negative) Urine Nitrate Negative (Negative) Urine Bilirubin Negative (Negative) Urine Urobilinogen Negative (Negative) Ur Leukocyte Esterase 2+ H (Negative) Urine WBC (Auto) 3+(>20/hpf) H (Absent) Urine RBC (Auto) 1+(3-5/hpf) H (Absent) Urine Bacteria Absent (Absent) Urine Glucose Negative (Negative) Phenytoin (10-20) mcg/mL Assess/Plan/Problems-Billing Assessment: - Patient Problems (1) Septic shock Current Visit: Yes Status: Acute Code(s): A41.9 - SEPSIS, UNSPECIFIED ORGANISM; R65.21 - SEVERE SEPSIS WITH SEPTIC SHOCK SNOMED Code(s): 45902240 Comment: Resolved (2) Polymicrobial bacterial infection Current Visit: Yes Status: Acute Code(s): A49.9 - BACTERIAL INFECTION, UNSPECIFIED SNOMED Code(s): 9377006 Comment: Bacteremia with E. coli and P. mirabilis. Continue ceftriaxone until 08/06, then 1 week po antibiotic. (3) Ureterolithiasis Current Visit: Yes Status: Acute Comment: Stent 08/01. Eventually needs lithotripsy. She needs KUB before discharge to visulaize stone. Disucssed with Dr. Palomo. (4) Seizure disorder Current Visit: Yes Status: Acute Code(s): G40.909 - EPILEPSY, UNSP, NOT INTRACTABLE, WITHOUT STATUS EPILEPTICUS SNOMED Code(s): 884999932 Comment: Continue phenytoin. Pt thinks she last had a seizure within the past year. (5) Polypharmacy Current Visit: Yes Status: Acute Code(s): Z79.899 - OTHER SNF (CURRENT ) DRUG THERAPY SNOMED Code(s): 687717109 Comment: Reduce sertraline dose, suspect will do as well on lower dose, can consider further does reductions in the future.
[2016-08-03] MEDS: cefTRIAXone VIAL(*) 1,000 MG in NS 0.9% 50 ML* 50 ML IVPB SCH (10:53)
--- NOTE | 2016-08-03 11:17 | PN ---
Progress Note - Progress Note Note: Time spent on patient care 50 minutes.
[2016-08-03] MEDS: traMADol TAB* 50 MG PO PRN (18:00)
[2016-08-03] MEDS: OLANzapine TAB* 5 MG PO SCH (20:42)
[2016-08-03] MEDS: Acetaminophen TAB* 325 MG PO PRN (20:43)
[2016-08-04] MEDS: Heparin VIAL(*) 5000 UNITS/ML VIAL (FIVE THOUSAND) SUBCUT SCH ×3 (05:26→21:55)
[2016-08-04] MEDS: predniSONE TAB* 20 MG PO SCH (09:43)
[2016-08-04] MEDS: Sertraline* 50 MG TAB PO SCH (09:43)
[2016-08-04] MEDS: Phenytoin CAP(*) 100 MG CAP.ER PO SCH ×2 (09:43→20:57)
--- NOTE | 2016-08-04 10:50 | RAD ---
HISTORY: Ureteral stone COMPARISONS: CT dated July 30, 2016 VIEWS: Frontal views of the abdomen. FINDINGS: BOWEL: There is a nonspecific bowel gas pattern, with nondilated small bowel gas noted. CALCULI: A left ureteral stent is noted. Again noted is a calculus of the left hemiabdomen measuring approximately 0.7 cm in size. This is stable and position from the previous CT examination. BONES AND SOFT TISSUES: Degenerative changes are noted OTHER FINDINGS: There is a small left pleural effusion. There is no subphrenic gas. IMPRESSION: LEFT NEPHROLITHIASIS AND URETERAL STENT
[2016-08-04] MEDS: cefTRIAXone VIAL(*) 1,000 MG in NS 0.9% 50 ML* 50 ML IVPB SCH (11:28)
[2016-08-04] MEDS: Ondansetron INJ* 2 MG/ML VIAL IV PRN (13:12)
[2016-08-04] MEDS ORDERED: predniSONE TAB* 10 MG PO SCH (15:31)
--- NOTE | 2016-08-04 15:56 | PN ---
Subjective Date of Service: 08/04/16 Interval History: Mild nausea. No emesis. No bowel c/o. No new c/o. Objective Active Medications: Acetaminophen (Tylenol Tab*) 650 mg PO Q4H PRN PRN Reason: FEVER/PAIN Last Admin: 08/03/16 20:43 Dose: 650 mg Gabapentin (Neurontin Cap(*)) 100 mg PO BID PRN PRN Reason: NEUROPATHY Last Admin: 08/02/16 21:46 Dose: 100 mg Heparin Sodium (Porcine) (Heparin Vial(*)) 5,000 units SUBCUT Q8HR [facility] Last Admin: 08/04/16 13:12 Dose: 5,000 units Ceftriaxone Sodium 1,000 mg/ (Sodium Chloride) 50 mls @ 200 mls/hr IVPB Q24H [facility] Last Admin: 08/04/16 11:28 Dose: 200 mls/hr Nystatin (Nystatin Top Powder*) 1 applic TOPICAL TID PRN PRN Reason: RASH Last Admin: 07/31/16 11:00 Dose: 1 applic Ondansetron HCl (Zofran Inj*) 4 mg IV Q6H PRN PRN Reason: NAUSEA Last Admin: 08/04/16 13:12 Dose: 4 mg Phenytoin Sodium (Dilantin Cap(*)) 100 mg PO BID [facility] Last Admin: 08/04/16 09:43 Dose: 100 mg Prednisone (Deltasone Tab*) 30 mg PO DAILY [facility] Sertraline HCl (Zoloft*) 150 mg PO DAILY [facility] Last Admin: 08/04/16 09:43 Dose: 150 mg Vital Signs 08/03/16 08/03/16 08/03/16 18:00 20:00 20:51 Temperature Pulse Rate Respiratory 18 18 18 Rate Blood Pressure (mmHg) O2 Sat by Pulse Oximetry 08/03/16 08/03/16 08/04/16 21:18 23:18 04:41 Temperature 97.7 F 98.2 F 97.3 F Pulse Rate 64 64 63 Respiratory 16 16 16 Rate Blood Pressure 99/46 96/44 105/55 (mmHg) O2 Sat by Pulse 97 97 98 Oximetry 08/04/16 08/04/16 08/04/16 07:20 08:00 08:17 Temperature 98.1 F Pulse Rate 66 Respiratory 18 17 Rate Blood Pressure 107/52 (mmHg) O2 Sat by Pulse 97 97 95 Oximetry Oxygen Devices in Use Now: Nasal Cannula Appearance: Alert, neutral affect. Head bent to R, otherwise looks comfortable. Eyes: No Scleral Icterus Ears/Nose/Mouth/Throat: Clear Oropharnyx, Mucous Membranes Moist Skin: No Nodules or Sclerosis, - - 2-3 cm red area R shoulder where head rests on shoulder. Neurological: Alert and Oriented x 3, NL Sensation, - - contracture neck, can't quite be put in neutral position. Result Diagrams: 08/02/16 05:15 08/02/16 05:15 Additional Lab and Data: Lab Results 07/30/16 07/30/16 07/30/16 Range/Units 11:19 11:19 11:19 WBC 22.4 H (3.5-10.8) 10^3/ul RBC 4.11 (4.0-5.4) 10^6/ul Hgb 12.3 (12.0-16.0) g/dl Hct 39 (35-47) % MCV 94 (80-97) fL MCH 30 (27-31) pg MCHC 32 (31-36) g/dl RDW 15 (10.5-15) % Plt Count 133 L (150-450) 10^3/ul MPV 10 (7.4-10.4) um3 Neut % (Auto) 91.0 H (38-83) % Lymph % (Auto) 1.7 L (25-47) % [place] % (Auto) 6.9 (1-9) % Eos % (Auto) 0 (0-6) % Baso % (Auto) 0.4 (0-2) % Absolute Neuts (auto) 20.4 H (1.5-7.7) 10^3/ul Absolute Lymphs (auto) 0.4 L (1.0-4.8) 10^3/ul Absolute Monos (auto) 1.5 H (0-0.8) 10^3/ul Absolute Eos (auto) 0 (0-0.6) 10^3/ul Absolute Basos (auto) 0.1 (0-0.2) 10^3/ul Absolute Nucleated RBC 0.01 10^3/ul Nucleated RBC % 0 INR (Anticoag Therapy) 1.32 H (0.89-1.11) APTT 35.2 (26.0-36.3) seconds Sodium 140 (133-145) mmol/L Potassium 3.8 (3.5-5.0) mmol/L Chloride 105 (101-111) mmol/L Carbon Dioxide 23 (22-32) mmol/L Anion Gap 12 H (2-11) mmol/L BUN 28 H (6-24) mg/dL Creatinine 1.93 H (0.51-0.95) mg/dL Est GFR ( Amer) 31.9 (>60) Est GFR (Non-Af Amer) 24.8 (>60) BUN/Creatinine Ratio 14.5 (8-20) Glucose 105 H (70-100) mg/dL Lactic Acid (0.5-2.0) mmol/L Calcium 8.2 L (8.6-10.3) mg/dL Total Bilirubin 1.20 H (0.2-1.0) mg/dL AST 32 (13-39) U/L ALT 11 (7-52) U/L Alkaline Phosphatase 45 (34-104) U/L Total Creatine Kinase 209 (10-223) U/L Troponin I 0.16 H* (<0.04) ng/mL C-Reactive Protein 180.92 H (< 5.00) mg/L Total Protein 4.9 L (6.4-8.9) g/dL Albumin 2.8 L (3.2-5.2) g/dL Globulin 2.1 (2-4) g/dL Albumin/Globulin Ratio 1.3 (1-3) Urine Color Urine Appearance Urine pH (5-9) Ur Specific [place] (1.010-1.030) Urine Protein (Negative) Urine Ketones (Negative) Urine Blood (Negative) Urine Nitrate (Negative) Urine Bilirubin (Negative) Urine Urobilinogen (Negative) Ur Leukocyte Esterase (Negative) Urine WBC (Auto) (Absent) Urine RBC (Auto) (Absent) Urine Bacteria (Absent) Urine Glucose (Negative) Phenytoin 12.5 (10-20) mcg/mL 07/30/16 07/30/16 Range/Units 11:19 11:35 WBC (3.5-10.8) 10^3/ul RBC (4.0-5.4) 10^6/ul Hgb (12.0-16.0) g/dl Hct (35-47) % MCV (80-97) fL MCH (27-31) pg MCHC (31-36) g/dl RDW (10.5-15) % Plt Count (150-450) 10^3/ul MPV (7.4-10.4) um3 Neut % (Auto) (38-83) % Lymph % (Auto) (25-47) % [place] % (Auto) (1-9) % Eos % (Auto) (0-6) % Baso % (Auto) (0-2) % Absolute Neuts (auto) (1.5-7.7) 10^3/ul Absolute Lymphs (auto) (1.0-4.8) 10^3/ul Absolute Monos (auto) (0-0.8) 10^3/ul Absolute Eos (auto) (0-0.6) 10^3/ul Absolute Basos (auto) (0-0.2) 10^3/ul Absolute Nucleated RBC 10^3/ul Nucleated RBC % INR (Anticoag Therapy) (0.89-1.11) APTT (26.0-36.3) seconds Sodium (133-145) mmol/L Potassium (3.5-5.0) mmol/L Chloride (101-111) mmol/L Carbon Dioxide (22-32) mmol/L Anion Gap (2-11) mmol/L BUN (6-24) mg/dL Creatinine (0.51-0.95) mg/dL Est GFR ( Amer) (>60) Est GFR (Non-Af Amer) (>60) BUN/Creatinine Ratio (8-20) Glucose (70-100) mg/dL Lactic Acid 3.9 H* (0.5-2.0) mmol/L Calcium (8.6-10.3) mg/dL Total Bilirubin (0.2-1.0) mg/dL AST (13-39) U/L ALT (7-52) U/L Alkaline Phosphatase (34-104) U/L Total Creatine Kinase (10-223) U/L Troponin I (<0.04) ng/mL C-Reactive Protein (< 5.00) mg/L Total Protein (6.4-8.9) g/dL Albumin (3.2-5.2) g/dL Globulin (2-4) g/dL Albumin/Globulin Ratio (1-3) Urine Color [place] Urine Appearance Turbid Urine pH 7.0 (5-9) Ur Specific [place] 1.016 (1.010-1.030) Urine Protein 2+(100 mg/dl) H (Negative) Urine Ketones Trace H (Negative) Urine Blood 1+ H (Negative) Urine Nitrate Negative (Negative) Urine Bilirubin Negative (Negative) Urine Urobilinogen Negative (Negative) Ur Leukocyte Esterase 2+ H (Negative) Urine WBC (Auto) 3+(>20/hpf) H (Absent) Urine RBC (Auto) 1+(3-5/hpf) H (Absent) Urine Bacteria Absent (Absent) Urine Glucose Negative (Negative) Phenytoin (10-20) mcg/mL Assess/Plan/Problems-Billing Assessment: - Patient Problems (1) Septic shock Current Visit: Yes Status: Acute Code(s): A41.9 - SEPSIS, UNSPECIFIED ORGANISM; R65.21 - SEVERE SEPSIS WITH SEPTIC SHOCK SNOMED Code(s): 86803907 Comment: Resolved. Taper prednisone. (2) Polymicrobial bacterial infection Current Visit: Yes Status: Acute Code(s): A49.9 - BACTERIAL INFECTION, UNSPECIFIED SNOMED Code(s): 2732716 Comment: Bacteremia with E. coli and P. mirabilis. Continue ceftriaxone until 08/06, then 1 week po antibiotic. CBC, CMP 08/05. (3) Ureterolithiasis Current Visit: Yes Status: Acute Comment: Stent 08/01. Eventually needs lithotripsy. She needs KUB before discharge to visulaize stone. Disucssed with Dr. Palomo again 08/04. KUB shows stone L abdomen. (4) Seizure disorder Current Visit: Yes Status: Acute Code(s): G40.909 - EPILEPSY, UNSP, NOT INTRACTABLE, WITHOUT STATUS EPILEPTICUS SNOMED Code(s): 546217416 Comment: Continue phenytoin. Pt thinks she last had a seizure within the past year. (5) Polypharmacy Current Visit: Yes Status: Acute Code(s): Z79.899 - OTHER [facility] (CURRENT ) DRUG THERAPY SNOMED Code(s): 583738040 Comment: Reduce sertraline dose, suspect will do as well on lower dose, can consider further does reductions in the future. (6) Nausea Current Visit: Yes Status: Acute Code(s): R11.0 - NAUSEA SNOMED Code(s): 597163891 Comment: Had 1 dose tramadol 08/03, will d/c.
[2016-08-04] MEDS: Acetaminophen TAB* 325 MG PO PRN (20:57)
[2016-08-04] MEDS: Gabapentin CAP(*) 100 MG PO PRN (20:57)
[2016-08-04] MEDS: OLANzapine TAB* 2.5 MG PO SCH (20:57)
[2016-08-05] MEDS: Heparin VIAL(*) 5000 UNITS/ML VIAL (FIVE THOUSAND) SUBCUT SCH ×3 (05:41→22:19)
[2016-08-05 06:57] LABS: Hematocrit 36 % (35-47); Hemoglobin 11.7 g/dl (12.0-16.0); Mean Corpuscular HGB Conc 32 g/dl (31-36); Mean Corpuscular Hemoglobin 30 pg (27-31); Mean Corpuscular Volume 93 fL (80-97); Mean Platelet Volume 10 um3 (7.4-10.4); Red Cell Distribution Width 14 % (10.5-15); White Blood Count 8.6 10^3/ul (3.5-10.8)
[2016-08-05 06:59] LABS: Add Diff/Slide Review? Slide Review Added; Comments Flag Yes
[2016-08-05 07:10] LABS: Albumin 2.2 g/dL (3.2-5.2); BUN/Creatinine Ratio 15.8 (8-20); Calcium 7.8 mg/dL (8.6-10.3); EGFR African American 130.3 (>60); EGFR Non-African American 101.3 (>60); Globulin 1.6 g/dL (2-4); Potassium 4.2 mmol/L (3.5-5.0); Total Bilirubin 0.3 mg/dL (0.2-1.0); Total Protein 3.8 g/dL (6.4-8.9)
[2016-08-05 07:18] LABS: Immature Granulocytes 2 % (0-9); Myelocytes % 1 % (0-1); Neutrophil % 61 % (38-83); Reactive Lymph % 4 % (0-6)
[2016-08-05 07:19] LABS: RBC Morphology Normal (Normal)
[2016-08-05] MEDS: Phenytoin CAP(*) 100 MG CAP.ER PO SCH ×2 (08:51→20:06)
[2016-08-05] MEDS: Sertraline* 50 MG TAB PO SCH (08:51)
[2016-08-05] MEDS ORDERED: Sertraline* 25 MG TAB PO SCH (09:28)
[2016-08-05] MEDS ORDERED: Sertraline* 100 MG TAB PO SCH (09:38)
[2016-08-05] MEDS ORDERED: predniSONE TAB* 20 MG PO SCH (09:39)
--- NOTE | 2016-08-05 09:45 | PN ---
Subjective Date of Service: 08/05/16 Interval History: No more nausea. No new c/o. Objective Active Medications: Acetaminophen (Tylenol Tab*) 650 mg PO Q4H PRN PRN Reason: FEVER/PAIN Last Admin: 08/04/16 20:57 Dose: 650 mg Gabapentin (Neurontin Cap(*)) 100 mg PO BID PRN PRN Reason: NEUROPATHY Last Admin: 08/04/16 20:57 Dose: 100 mg Heparin Sodium (Porcine) (Heparin Vial(*)) 5,000 units SUBCUT Q8HR [facility] Last Admin: 08/05/16 05:41 Dose: 5,000 units Ceftriaxone Sodium 1,000 mg/ (Sodium Chloride) 50 mls @ 200 mls/hr IVPB Q24H [facility] Last Admin: 08/04/16 11:28 Dose: 200 mls/hr Nystatin (Nystatin Top Powder*) 1 applic TOPICAL TID PRN PRN Reason: RASH Last Admin: 07/31/16 11:00 Dose: 1 applic Olanzapine (Zyprexa Tab*) 2.5 mg PO BEDTIME [facility] Last Admin: 08/04/16 20:57 Dose: 2.5 mg Ondansetron HCl (Zofran Inj*) 4 mg IV Q6H PRN PRN Reason: NAUSEA Last Admin: 08/04/16 13:12 Dose: 4 mg Phenytoin Sodium (Dilantin Cap(*)) 100 mg PO BID [facility] Last Admin: 08/05/16 08:51 Dose: 100 mg Vital Signs 08/04/16 08/04/16 08/04/16 15:32 16:55 20:00 Temperature 97.2 F Pulse Rate 72 Respiratory 18 Rate Blood Pressure 110/48 (mmHg) O2 Sat by Pulse 95 94 97 Oximetry 08/04/16 08/04/16 08/04/16 20:27 20:57 22:57 Temperature 97.5 F Pulse Rate 66 Respiratory 18 16 18 Rate Blood Pressure 107/52 (mmHg) O2 Sat by Pulse 97 Oximetry 08/04/16 08/05/16 08/05/16 23:06 07:31 08:00 Temperature 97.5 F 97.6 F Pulse Rate 65 67 Respiratory 16 18 18 Rate Blood Pressure 107/53 111/55 (mmHg) O2 Sat by Pulse 98 100 Oximetry 08/05/16 08:15 Temperature Pulse Rate Respiratory Rate Blood Pressure (mmHg) O2 Sat by Pulse 96 Oximetry Oxygen Devices in Use Now: Nasal Cannula Appearance: Alert, partly up in bed. In good spirits, smiling more today. Looks comfortable but head still resting on R shoulder. Eyes: No Scleral Icterus Ears/Nose/Mouth/Throat: Clear Oropharnyx, Mucous Membranes Moist Extremities: No Clubbing, Cyanosis, - - tr edema BL Skin: No Rash or Ulcers, No Nodules or Sclerosis Neurological: Alert and Oriented x 3, NL Sensation, - - Bilateral Achilles contractures L > R Result Diagrams: 08/05/16 06:26 08/05/16 06:26 Additional Lab and Data: Lab Results 07/30/16 07/30/16 07/30/16 Range/Units 11:19 11:19 11:19 WBC 22.4 H (3.5-10.8) 10^3/ul RBC 4.11 (4.0-5.4) 10^6/ul Hgb 12.3 (12.0-16.0) g/dl Hct 39 (35-47) % MCV 94 (80-97) fL MCH 30 (27-31) pg MCHC 32 (31-36) g/dl RDW 15 (10.5-15) % Plt Count 133 L (150-450) 10^3/ul MPV 10 (7.4-10.4) um3 Neut % (Auto) 91.0 H (38-83) % Lymph % (Auto) 1.7 L (25-47) % [place] % (Auto) 6.9 (1-9) % Eos % (Auto) 0 (0-6) % Baso % (Auto) 0.4 (0-2) % Absolute Neuts (auto) 20.4 H (1.5-7.7) 10^3/ul Absolute Lymphs (auto) 0.4 L (1.0-4.8) 10^3/ul Absolute Monos (auto) 1.5 H (0-0.8) 10^3/ul Absolute Eos (auto) 0 (0-0.6) 10^3/ul Absolute Basos (auto) 0.1 (0-0.2) 10^3/ul Absolute Nucleated RBC 0.01 10^3/ul Nucleated RBC % 0 INR (Anticoag Therapy) 1.32 H (0.89-1.11) APTT 35.2 (26.0-36.3) seconds Sodium 140 (133-145) mmol/L Potassium 3.8 (3.5-5.0) mmol/L Chloride 105 (101-111) mmol/L Carbon Dioxide 23 (22-32) mmol/L Anion Gap 12 H (2-11) mmol/L BUN 28 H (6-24) mg/dL Creatinine 1.93 H (0.51-0.95) mg/dL Est GFR ( Amer) 31.9 (>60) Est GFR (Non-Af Amer) 24.8 (>60) BUN/Creatinine Ratio 14.5 (8-20) Glucose 105 H (70-100) mg/dL Lactic Acid (0.5-2.0) mmol/L Calcium 8.2 L (8.6-10.3) mg/dL Total Bilirubin 1.20 H (0.2-1.0) mg/dL AST 32 (13-39) U/L ALT 11 (7-52) U/L Alkaline Phosphatase 45 (34-104) U/L Total Creatine Kinase 209 (10-223) U/L Troponin I 0.16 H* (<0.04) ng/mL C-Reactive Protein 180.92 H (< 5.00) mg/L Total Protein 4.9 L (6.4-8.9) g/dL Albumin 2.8 L (3.2-5.2) g/dL Globulin 2.1 (2-4) g/dL Albumin/Globulin Ratio 1.3 (1-3) Urine Color Urine Appearance Urine pH (5-9) Ur Specific [place] (1.010-1.030) Urine Protein (Negative) Urine Ketones (Negative) Urine Blood (Negative) Urine Nitrate (Negative) Urine Bilirubin (Negative) Urine Urobilinogen (Negative) Ur Leukocyte Esterase (Negative) Urine WBC (Auto) (Absent) Urine RBC (Auto) (Absent) Urine Bacteria (Absent) Urine Glucose (Negative) Phenytoin 12.5 (10-20) mcg/mL 07/30/16 07/30/16 Range/Units 11:19 11:35 WBC (3.5-10.8) 10^3/ul RBC (4.0-5.4) 10^6/ul Hgb (12.0-16.0) g/dl Hct (35-47) % MCV (80-97) fL MCH (27-31) pg MCHC (31-36) g/dl RDW (10.5-15) % Plt Count (150-450) 10^3/ul MPV (7.4-10.4) um3 Neut % (Auto) (38-83) % Lymph % (Auto) (25-47) % [place] % (Auto) (1-9) % Eos % (Auto) (0-6) % Baso % (Auto) (0-2) % Absolute Neuts (auto) (1.5-7.7) 10^3/ul Absolute Lymphs (auto) (1.0-4.8) 10^3/ul Absolute Monos (auto) (0-0.8) 10^3/ul Absolute Eos (auto) (0-0.6) 10^3/ul Absolute Basos (auto) (0-0.2) 10^3/ul Absolute Nucleated RBC 10^3/ul Nucleated RBC % INR (Anticoag Therapy) (0.89-1.11) APTT (26.0-36.3) seconds Sodium (133-145) mmol/L Potassium (3.5-5.0) mmol/L Chloride (101-111) mmol/L Carbon Dioxide (22-32) mmol/L Anion Gap (2-11) mmol/L BUN (6-24) mg/dL Creatinine (0.51-0.95) mg/dL Est GFR ( Amer) (>60) Est GFR (Non-Af Amer) (>60) BUN/Creatinine Ratio (8-20) Glucose (70-100) mg/dL Lactic Acid 3.9 H* (0.5-2.0) mmol/L Calcium (8.6-10.3) mg/dL Total Bilirubin (0.2-1.0) mg/dL AST (13-39) U/L ALT (7-52) U/L Alkaline Phosphatase (34-104) U/L Total Creatine Kinase (10-223) U/L Troponin I (<0.04) ng/mL C-Reactive Protein (< 5.00) mg/L Total Protein (6.4-8.9) g/dL Albumin (3.2-5.2) g/dL Globulin (2-4) g/dL Albumin/Globulin Ratio (1-3) Urine Color [place] Urine Appearance Turbid Urine pH 7.0 (5-9) Ur Specific [place] 1.016 (1.010-1.030) Urine Protein 2+(100 mg/dl) H (Negative) Urine Ketones Trace H (Negative) Urine Blood 1+ H (Negative) Urine Nitrate Negative (Negative) Urine Bilirubin Negative (Negative) Urine Urobilinogen Negative (Negative) Ur Leukocyte Esterase 2+ H (Negative) Urine WBC (Auto) 3+(>20/hpf) H (Absent) Urine RBC (Auto) 1+(3-5/hpf) H (Absent) Urine Bacteria Absent (Absent) Urine Glucose Negative (Negative) Phenytoin (10-20) mcg/mL Assess/Plan/Problems-Billing Assessment: - Patient Problems (1) Septic shock Current Visit: Yes Status: Acute Code(s): A41.9 - SEPSIS, UNSPECIFIED ORGANISM; R65.21 - SEVERE SEPSIS WITH SEPTIC SHOCK SNOMED Code(s): 33530960 Comment: Resolved. Continue prednisone taper. (2) Polymicrobial bacterial infection Current Visit: Yes Status: Acute Code(s): A49.9 - BACTERIAL INFECTION, UNSPECIFIED SNOMED Code(s): 9695998 Comment: Bacteremia with E. coli and P. mirabilis. Continue ceftriaxone until 08/06, then 1 week po antibiotic. WBC down to 8.6 08/05. (3) Ureterolithiasis Current Visit: Yes Status: Acute Comment: Stent 08/01. Eventually needs lithotripsy. She needs KUB before discharge to visulaize stone. Disucssed with Dr. Palomo again 08/04. KUB shows stone L abdomen. (4) Seizure disorder Current Visit: Yes Status: Acute Code(s): G40.909 - EPILEPSY, UNSP, NOT INTRACTABLE, WITHOUT STATUS EPILEPTICUS SNOMED Code(s): 486207702 Comment: Continue phenytoin. Pt thinks she last had a seizure within the past year. (5) Polypharmacy Current Visit: Yes Status: Acute Code(s): Z79.899 - OTHER STATE ATTORNEY (CURRENT ) DRUG THERAPY SNOMED Code(s): 210650727 Comment: Further reduce sertraline dose 08/06. She is doing as well or better on a lower dose, can consider further does reductions in the future. (6) Nausea Current Visit: Yes Status: Acute Code(s): R11.0 - NAUSEA SNOMED Code(s): 588178222 Comment: Had 1 dose tramadol 08/03, will d/c.
[2016-08-05] MEDS: cefTRIAXone VIAL(*) 1,000 MG in NS 0.9% 50 ML* 50 ML IVPB SCH (10:59)
[2016-08-05] MEDS: Acetaminophen TAB* 325 MG PO PRN ×2 (10:59→22:19)
[2016-08-05] MEDS: Ondansetron INJ* 2 MG/ML VIAL IV PRN (12:45)
[2016-08-05] MEDS: OLANzapine TAB* 2.5 MG PO SCH (20:06)
[2016-08-06] MEDS: Heparin VIAL(*) 5000 UNITS/ML VIAL (FIVE THOUSAND) SUBCUT SCH ×2 (06:12→13:33)
[2016-08-06] MEDS: Ondansetron INJ* 2 MG/ML VIAL IV PRN ×2 (07:39→13:33)
[2016-08-06 07:48] VITALS: BP 129/60
[2016-08-06] MEDS: Phenytoin CAP(*) 100 MG CAP.ER PO SCH (08:32)
[2016-08-06] MEDS ORDERED: Sertraline* 25 MG TAB PO SCH (09:00)
[2016-08-06] MEDS ORDERED: Sertraline* 100 MG TAB PO SCH (09:00)
[2016-08-06] MEDS: cefTRIAXone VIAL(*) 1,000 MG in NS 0.9% 50 ML* 50 ML IVPB SCH (10:42)
--- NOTE | 2016-08-06 13:17 | PN ---
Progress Note - Progress Note Note: Time spent on discharge 50 minutes.
--- NOTE | 2016-08-06 13:23 | DCNOTE ---
Subjective Date of Service: 08/06/16 Interval History: Patient c/o nausea also that she hasn't slept in 2 nights. She felt she could eat some lunch now. Objective Active Medications: Acetaminophen (Tylenol Tab*) 650 mg PO Q4H PRN PRN Reason: FEVER/PAIN Last Admin: 08/05/16 22:19 Dose: 650 mg Cefuroxime Axetil (Ceftin Tab(*)) 500 mg PO BID PIOTR Gabapentin (Neurontin Cap(*)) 100 mg PO BID PRN PRN Reason: NEUROPATHY Last Admin: 08/04/16 20:57 Dose: 100 mg Heparin Sodium (Porcine) (Heparin Vial(*)) 5,000 units SUBCUT Q8HR PIOTR Last Admin: 08/06/16 06:12 Dose: 5,000 units Nystatin (Nystatin Top Powder*) 1 applic TOPICAL TID PRN PRN Reason: RASH Last Admin: 07/31/16 11:00 Dose: 1 applic Olanzapine (Zyprexa Tab*) 2.5 mg PO BEDTIME [facility] Last Admin: 08/05/16 20:06 Dose: 2.5 mg Ondansetron HCl (Zofran Inj*) 4 mg IV Q6H PRN PRN Reason: NAUSEA Last Admin: 08/06/16 07:39 Dose: 4 mg Phenytoin Sodium (Dilantin Cap(*)) 100 mg PO BID [facility] Last Admin: 08/06/16 08:32 Dose: 100 mg Prednisone (Deltasone Tab*) 10 mg PO DAILY [facility] Sertraline HCl (Zoloft*) 100 mg PO 0900 [facility] Last Admin: 08/06/16 08:32 Dose: 100 mg Trazodone HCl (Desyrel Tab*) 50 mg PO BEDTIME [facility] Vital Signs 08/05/16 08/05/16 08/05/16 15:47 20:00 20:23 Temperature 98.4 F 97.9 F Pulse Rate 73 71 Respiratory 18 18 Rate Blood Pressure 109/55 125/53 (mmHg) O2 Sat by Pulse 94 97 Oximetry 08/05/16 08/05/16 08/06/16 22:23 23:24 03:50 Temperature 97.9 F 97.6 F Pulse Rate 68 67 Respiratory 16 16 16 Rate Blood Pressure 128/54 114/52 (mmHg) O2 Sat by Pulse 97 96 Oximetry 08/06/16 08/06/16 08/06/16 07:45 08:00 08:36 Temperature 98.2 F Pulse Rate 76 Respiratory 16 16 Rate Blood Pressure 129/60 (mmHg) O2 Sat by Pulse 92 94 94 Oximetry Oxygen Devices in Use Now: None Appearance: Alert, partly up in bed. She seems more suspicious, less outgoing today. Eyes: No Scleral Icterus Ears/Nose/Mouth/Throat: Clear Oropharnyx, Mucous Membranes Moist Neck: NL Appearance and Movements; NL JVP, No Thyroid Enlargement, Masses Respiratory: Symmetrical Chest Expansion and Respiratory Effort, Clear to Auscultation, Clear to Percussion Extremities: No Edema, No Clubbing, Cyanosis, - Skin: No Rash or Ulcers, No Nodules or Sclerosis, - Neurological: Alert and Oriented x 3, NL Sensation Result Diagrams: 08/05/16 06:26 08/05/16 06:26 Additional Lab and Data: Lab Results 07/30/16 07/30/16 07/30/16 Range/Units 11:19 11:19 11:19 WBC 22.4 H (3.5-10.8) 10^3/ul RBC 4.11 (4.0-5.4) 10^6/ul Hgb 12.3 (12.0-16.0) g/dl Hct 39 (35-47) % MCV 94 (80-97) fL MCH 30 (27-31) pg MCHC 32 (31-36) g/dl RDW 15 (10.5-15) % Plt Count 133 L (150-450) 10^3/ul MPV 10 (7.4-10.4) um3 Neut % (Auto) 91.0 H (38-83) % Lymph % (Auto) 1.7 L (25-47) % Harvey % (Auto) 6.9 (1-9) % Eos % (Auto) 0 (0-6) % Baso % (Auto) 0.4 (0-2) % Absolute Neuts (auto) 20.4 H (1.5-7.7) 10^3/ul Absolute Lymphs (auto) 0.4 L (1.0-4.8) 10^3/ul Absolute Monos (auto) 1.5 H (0-0.8) 10^3/ul Absolute Eos (auto) 0 (0-0.6) 10^3/ul Absolute Basos (auto) 0.1 (0-0.2) 10^3/ul Absolute Nucleated RBC 0.01 10^3/ul Nucleated RBC % 0 INR (Anticoag Therapy) 1.32 H (0.89-1.11) APTT 35.2 (26.0-36.3) seconds Sodium 140 (133-145) mmol/L Potassium 3.8 (3.5-5.0) mmol/L Chloride 105 (101-111) mmol/L Carbon Dioxide 23 (22-32) mmol/L Anion Gap 12 H (2-11) mmol/L BUN 28 H (6-24) mg/dL Creatinine 1.93 H (0.51-0.95) mg/dL Est GFR ( Amer) 31.9 (>60) Est GFR (Non-Af Amer) 24.8 (>60) BUN/Creatinine Ratio 14.5 (8-20) Glucose 105 H (70-100) mg/dL Lactic Acid (0.5-2.0) mmol/L Calcium 8.2 L (8.6-10.3) mg/dL Total Bilirubin 1.20 H (0.2-1.0) mg/dL AST 32 (13-39) U/L ALT 11 (7-52) U/L Alkaline Phosphatase 45 (34-104) U/L Total Creatine Kinase 209 (10-223) U/L Troponin I 0.16 H* (<0.04) ng/mL C-Reactive Protein 180.92 H (< 5.00) mg/L Total Protein 4.9 L (6.4-8.9) g/dL Albumin 2.8 L (3.2-5.2) g/dL Globulin 2.1 (2-4) g/dL Albumin/Globulin Ratio 1.3 (1-3) Urine Color Urine Appearance Urine pH (5-9) Ur Specific [place] (1.010-1.030) Urine Protein (Negative) Urine Ketones (Negative) Urine Blood (Negative) Urine Nitrate (Negative) Urine Bilirubin (Negative) Urine Urobilinogen (Negative) Ur Leukocyte Esterase (Negative) Urine WBC (Auto) (Absent) Urine RBC (Auto) (Absent) Urine Bacteria (Absent) Urine Glucose (Negative) Phenytoin 12.5 (10-20) mcg/mL 07/30/16 07/30/16 Range/Units 11:19 11:35 WBC (3.5-10.8) 10^3/ul RBC (4.0-5.4) 10^6/ul Hgb (12.0-16.0) g/dl Hct (35-47) % MCV (80-97) fL MCH (27-31) pg MCHC (31-36) g/dl RDW (10.5-15) % Plt Count (150-450) 10^3/ul MPV (7.4-10.4) um3 Neut % (Auto) (38-83) % Lymph % (Auto) (25-47) % Harvey % (Auto) (1-9) % Eos % (Auto) (0-6) % Baso % (Auto) (0-2) % Absolute Neuts (auto) (1.5-7.7) 10^3/ul Absolute Lymphs (auto) (1.0-4.8) 10^3/ul Absolute Monos (auto) (0-0.8) 10^3/ul Absolute Eos (auto) (0-0.6) 10^3/ul Absolute Basos (auto) (0-0.2) 10^3/ul Absolute Nucleated RBC 10^3/ul Nucleated RBC % INR (Anticoag Therapy) (0.89-1.11) APTT (26.0-36.3) seconds Sodium (133-145) mmol/L Potassium (3.5-5.0) mmol/L Chloride (101-111) mmol/L Carbon Dioxide (22-32) mmol/L Anion Gap (2-11) mmol/L BUN (6-24) mg/dL Creatinine (0.51-0.95) mg/dL Est GFR ( Amer) (>60) Est GFR (Non-Af Amer) (>60) BUN/Creatinine Ratio (8-20) Glucose (70-100) mg/dL Lactic Acid 3.9 H* (0.5-2.0) mmol/L Calcium (8.6-10.3) mg/dL Total Bilirubin (0.2-1.0) mg/dL AST (13-39) U/L ALT (7-52) U/L Alkaline Phosphatase (34-104) U/L Total Creatine Kinase (10-223) U/L Troponin I (<0.04) ng/mL C-Reactive Protein (< 5.00) mg/L Total Protein (6.4-8.9) g/dL Albumin (3.2-5.2) g/dL Globulin (2-4) g/dL Albumin/Globulin Ratio (1-3) Urine Color [place] Urine Appearance Turbid Urine pH 7.0 (5-9) Ur Specific [place] 1.016 (1.010-1.030) Urine Protein 2+(100 mg/dl) H (Negative) Urine Ketones Trace H (Negative) Urine Blood 1+ H (Negative) Urine Nitrate Negative (Negative) Urine Bilirubin Negative (Negative) Urine Urobilinogen Negative (Negative) Ur Leukocyte Esterase 2+ H (Negative) Urine WBC (Auto) 3+(>20/hpf) H (Absent) Urine RBC (Auto) 1+(3-5/hpf) H (Absent) Urine Bacteria Absent (Absent) Urine Glucose Negative (Negative) Phenytoin (10-20) mcg/mL Assess/Plan/Problems-Billing Assessment: - Patient Problems (1) Septic shock Current Visit: Yes Status: Acute Code(s): A41.9 - SEPSIS, UNSPECIFIED ORGANISM; R65.21 - SEVERE SEPSIS WITH SEPTIC SHOCK SNOMED Code(s): 91792349 Comment: Resolved. Continue prednisone taper. (2) Polymicrobial bacterial infection Current Visit: Yes Status: Acute Code(s): A49.9 - BACTERIAL INFECTION, UNSPECIFIED SNOMED Code(s): 6310291 Comment: Bacteremia with E. coli and P. mirabilis. Continue ceftriaxone until 08/06, then 1 week po cefuroxime. WBC down to 8.6 08/05. (3) Ureterolithiasis Current Visit: Yes Status: Acute Comment: Stent 08/01. Eventually needs lithotripsy. She needs KUB before discharge to visulaize stone. Disucssed with Dr. Palomo again 08/04. KUB shows stone L abdomen. (4) Seizure disorder Current Visit: Yes Status: Acute Code(s): G40.909 - EPILEPSY, UNSP, NOT INTRACTABLE, WITHOUT STATUS EPILEPTICUS SNOMED Code(s): 639621948 Comment: Continue phenytoin. Pt thinks she last had a seizure within the past year. (5) Polypharmacy Current Visit: Yes Status: Acute Code(s): Z79.899 - OTHER SENIOR LIVING (CURRENT ) DRUG THERAPY SNOMED Code(s): 667661173 Comment: Further reduce sertraline dose 08/06. She is doing as well or better on a lower dose, can consider further does reductions in the future. (6) Nausea Current Visit: Yes Status: Acute Code(s): R11.0 - NAUSEA SNOMED Code(s): 934553400 Comment: Had 1 dose tramadol 08/03, will d/c.
[2016-08-06] MEDS ORDERED: predniSONE TAB* 20 MG PO ONE (14:00)
[2016-08-06] MEDS: Acetaminophen TAB* 325 MG PO PRN (14:24)
--- NOTE | 2016-08-06 14:35 | DS ---
DATE OF ADMISSION: 07/30/2016. DATE OF DISCHARGE: 08/06/2016. HISTORY OF PRESENT ILLNESS: This 85-year-old woman presented with weakness. She had been bedridden for four or five years after a fall with right lower extremity weakness. She really has bilateral leg weakness at this time. She was felt to be in septic shock with a lactic acid of 3.9, blood pressure in the 70s systolic despite three liters of saline. She was found to have a ureteral stone. She had E. coli and proteus mirabilis in three out of four blood cultures and E. coli alone in the fourth blood culture bottle. Urine culture was negative. Dr. Palomo inserted a stent in the left ureter on 08/01/2016. The patient was given fluids and intravenous antibiotics. She did well. She completed a week of Ceftriaxone. Both her organisms are sensitive to this. She will take a week of oral Cefuroxime 500 mg b.i.d. She will need extensive physical therapy because of her long- standing weakness. FINAL DIAGNOSES: 1. Septic shock. 2. Polymicrobial bacterial infection with bacteremia. 3. Ureterolithiasis. 4. Seizure disorder. 5. Polypharmacy. 6. Nausea. DISCHARGE MEDICATIONS: 1. Acetaminophen 650 mg every 4 hours prn. 2. Cefuroxime 500 mg b.i.d. for one week. 3. Gabapentin 100 mg b.i.d. prn. 4. Nystatin powder to affected areas t.i.d. prn. 5. Olanzapine 2.5 mg at bedtime. 6. Sertraline 100 mg daily. 7. Prednisone 10 mg daily for one more day. 8. Trazodone 50 mg at bedtime. 9. Magnesium Hydroxide 15 to 30 ml every other day prn. 10. Cyanocobalamin 1000 mcg daily. 11. Vitamin D3 2000 units daily. 12. Senna three daily. 13. Fluticasone Propionate 0.05% b.i.d. to affected areas. 14. Clotrimazole 1% one application b.i.d. to affected areas. DISPOSITION: The patient is transferred to [facility]. [id number]/[facility] #: [id number] [facility]
[2016-08-06] MEDS ORDERED: traZODone TAB* 50 MG TAB PO SCH (21:00)
[2016-08-07] MEDS ORDERED: predniSONE TAB* 10 MG PO SCH (09:00)
[2016-08-07] MEDS ORDERED: ceFUROXime TAB(*) 250 MG PO SCH (09:00)
== END 2016-08-06 16:10 | DRG 871 ==
LOC: ED 11:05 → ICU 12:53 → MED 08-02 09:25
PROVIDERS: ADMIT Internal Medicine Critical Care Medicine; ATTEND Internal Medicine
PROC: BT1FZZZ Fluoroscopy of Left Kidney, Ureter and Bladder (ICD-10-PCS; 2016-08-01)
PROC: 0T778DZ Dilation of Left Ureter with Intraluminal Device, Via Natural or Artificial Opening Endoscopic (ICD-10-PCS; principal; 2016-08-01 17:00)
DX: A41.51 Sepsis due to Escherichia coli [E. coli] (principal); R65.21 Severe sepsis with septic shock; N17.9 Acute kidney failure, unspecified; L89.152 Pressure ulcer of sacral region, stage 2; E86.0 Dehydration; G40.909 Epilepsy, unspecified, not intractable, without status epilepticus; E27.40 Unspecified adrenocortical insufficiency; N13.6 Pyonephrosis; N13.8 Other obstructive and reflux uropathy; A41.4 Sepsis due to anaerobes; I10 Essential (primary) hypertension; M19.90 Unspecified osteoarthritis, unspecified site; M81.0 Age-related osteoporosis without current pathological fracture; G43.909 Migraine, unspecified, not intractable, without status migrainosus; F32.9 Major depressive disorder, single episode, unspecified; E66.9 Obesity, unspecified; G89.29 Other chronic pain; M54.9 Dorsalgia, unspecified; Z96.643 Presence of artificial hip joint, bilateral; N81.10 Cystocele, unspecified; Z66 Do not resuscitate; R11.0 Nausea; Z74.01 Bed confinement status; Z88.0 Allergy status to penicillin; Z88.5 Allergy status to narcotic agent; Z88.8 Allergy status to other drugs, medicaments and biological substances; Z90.710 Acquired absence of both cervix and uterus; Z86.73 Personal history of transient ischemic attack (TIA), and cerebral infarction without residual deficits; Z82.3 Family history of stroke; Z68.32 Body mass index [BMI] 32.0-32.9, adult; Z87.891 Personal history of nicotine dependence
CPT/HCPCS: 36415; 50432; 71010; 74000; 74176; 74420; 76775; 80048; 80053; 80185; 80202; 81003; 81015; 82550; 83605; 83735; 84100; 84134; 84484; 85025; 85027; 85060; 85610; 85730; 86140; 87040; 87077; 87086; 87186; 87205; 87502; 87899; 93005; 94760; A9270-GY; C1876; J0692; J0696; J0744; J1644; J1720; J2250; J2405; J2704; J3010; J3370; J3480; J7512

== ENCOUNTER → 2016-10-01 08:09 | Day surgery (SDC) | payer MEDICARE ==
[~2016-10-01 08:09] MED LIST: Buffered Lidocaine 0.9% SYRIN* 5 ML/SYR SYRINGE INTRADERM ONE; Buffered Lidocaine 0.9% SYRIN* 5 ML/SYR SYRINGE ONE; DiMENhydriNATE IV* 50 MG/ML VIAL IV PUSH PRN; Iohexol 180 (CONTRAST) 10 ML SDV IV ONE; Levofloxacin 750 MG IVPREMIX(* 750 MG/150 ML BAG ONE; Lidocaine 2% PF * 5 ML VIAL ONE; Propofol* 10 MG/ML 20 ML BTL IV PUSH ONE; fentaNYL* 50 MCG/ML 2 ML VIAL (100 MCG VIAL) IV PRN; fentaNYL* 50 MCG/ML 2 ML VIAL (100 MCG VIAL) ONE
--- NOTE | 2016-10-01 11:12 | RAD ---
CPT II Codes: 6045F INDICATION: Exchange of left ureteral stent in a patient with a history of left-sided renal calculi treated with laser lithotripsy. TECHNIQUE: Intraoperative fluoroscopy was provided during retrograde exchange of the left ureteral stent. FINDINGS: 3 spot films depict retrograde nephro urostomy gram with placement of a left ureteral stent. Only and image of the anatomically aligned proximal loop was recorded. Fluoroscopy time: 14 seconds IMPRESSION: As above.
[2016-10-01 11:31] VITALS: BP 141/96
--- NOTE | 2016-10-01 11:38 | HP ---
HISTORY AND PHYSICAL: DATE OF PLANNED ADMISSION/SURGERY: 10/01/16 HISTORY OF PRESENT ILLNESS: Please refer to the full history and physical dictated by the primary care provider dictated on 08/22/16. Ms. Adams is an 86-year-old white female with a proximal left ureteral calculus, status post placement left ureteral stent who is admitted for cystoscopy, left ureteroscopy, laser lithotripsy and left ureteral stent exchange. Ms. Adams was admitted to the hospital about 2 months ago. She was noted to be in urosepsis and her workup showed an obstructing 1 cm proximal left ureteral calculus. The patient was taken urgently to the operating room on 08/01/16 and had a placement of a left ureteral stent. At that time, she was noted also to have a 1.5 to 2 cm bladder calculus. The patient did very well postoperatively and she was discharged to the [facility] oral antibiotics. She has been doing much better. She had been followed by Kaitlin Aguiar, her primary care provider. PAST MEDICAL HISTORY AND SYSTEM REVIEW: The patient has history of hypertension , B12 deficiency, anemia, history of seizure disorder. She also has polyarthritis, polyneuropathy. Her list of medications is in Ms. Aguiar's note and they have not changed. ALLERGIES: The patient is allergic to OXYCODONE, PENICILLINS, AMBIEN and OXYBUTYNIN. PHYSICAL EXAMINATION GENERAL: She is an elderly, rather frail looking white female who is fully alert. VITAL SIGNS: Normal. LUNGS: Clear. HEART: Regular and rhythmic. No murmurs. ABDOMEN: Soft without any masses. She has no abdominal tenderness. IMPRESSION: 1. Bladder calculus. 2. Proximal left ureteral calculus, status post placement of left ureteral stent. PLAN: 1. The patient will be admitted for cystoscopy, cystolitholapaxy, left ureteroscopy, laser lithotripsy and left ureteral stent exchange. 2. The patient has been on Cipro preoperatively. 3. Considering the size of the stone and its location, she might need more than 1 procedure to render her stone free. I discussed the above plans with the patient and all her questions were answered. [id number]/[facility] #: [id number] MTDD
--- NOTE | 2016-10-01 12:41 | RAD ---
INDICATION: Status post left ureteral stent placement COMPARISON: Most recent KUB is dated August 04, 2016 TECHNIQUE: A single view of the abdomen was obtained. FINDINGS: There is a left ureteral stent in anatomic alignment. Immediately lateral to the proximal loop is a 6 mm faint calcification which could represent a stone in the collecting system. Incidentally noted is a large amount of stool throughout the length of the transverse and distal colon. IMPRESSION: ANATOMIC ALIGNMENT OF LEFT URETERAL STENT IN THE AP PROJECTION.
--- NOTE | 2016-10-02 04:00 | OP ---
CC: Kaitlin Aguiar NP, [facility] * DATE OF OPERATION: 10/01/16 - [facility] DATE OF : 34 SURGEON: Gerardo Palomo MD. ANESTHESIOLOGIST: Dr. Lorenzo Boggs. ANESTHESIA: General. PRE-OP DIAGNOSES: 1. Proximal left ureteral calculus. 2. Bladder calculus. POST-OP DIAGNOSES: 1. Proximal left ureteral calculus. 2. Bladder calculus. OPERATIVE PROCEDURE: 1. Cystoscopy, cystolithopaxy. 2. Left ureteroscopy and pyeloscopy. 3. Laser lithotripsy and left ureteral stent exchange. INDICATION FOR PROCEDURE: Ms. Adams is an 86-year-old white female who was admitted 2 months ago with urosepsis and was noted to have a 1.2 cm obstructing calculus in the proximal left ureter. She was taken urgently to the operating room where she underwent a cystoscopy, which showed a 1.5 cm bladder calculus. She had urgent placement of left ureteral stent. She did very well postoperatively and was discharged [facility]. She has been doing well. She is now admitted for the above procedure. PATHOLOGY AT CYSTOSCOPY: Again was noted a 1.5 cm calculus in the bladder. The calculus was yellowish-grayish in color and was relatively easy to break. On fluoroscopy, the stent was in good position. A radiopaque calculus measuring about 1.2 cm was noted adjacent to the stent in the proximal left ureter. Upon left ureteroscopy, the proximal ureteral calculus was noted. It was located just distal to the ureteropelvic junction. The calculus was grayish- yellowish in color. Retrograde pyelography showed no hydronephrosis. The stone was also relatively easy to break with the laser. DESCRIPTION OF PROCEDURE: After successful general anesthesia, the patient was placed in the lithotomy position and was prepped and draped in the usual manner. Cystoscopy was performed. The bladder was inspected and the above findings were noted. Using the stone-crushing forceps, the bladder stone was broken into multiple pieces. Care was taken not to injure the bladder wall. The stone fragments were then evacuated. The left ureteral stent was then removed over a guide wire. A size 6.5 semirigid ureteroscope was introduced without difficulty in the dilated ureter and passed all the way into the proximal ureter where the calculus was identified. The plan was to engage the stone in a basket to prevent its migration inside the kidney and to perform a laser lithotripsy with the stone engaged in the basket. While introducing the basket, the stone migrated into the renal pelvis. The ureteroscope was then advanced without difficulty inside the renal pelvis. The stone was broken into multiple pieces. Some of the fragments fell in a mid-to- lower pole calyx and could not be reached for fragmentation. The rest of the fragments were broken into multiple pieces. Retrograde pyelography was then performed. There was no extravasation. A size 7-[place] Island[place] stent was then placed with the proximal end coiling in renal pelvis and the distal end coiling inside the bladder. The patient tolerated the procedure well. The plan is to obtain to a postoperative KUB. Depending upon the residual stone fragments, we will decide if the stent can be removed or the patient will require shockwave lithotripsy at a later date. [id number]/[facility] #: [id number] JOJO
== END | disposition home or self-care (01) ==
LOC: OR 08:09
PROVIDERS: ATTEND Urology
DX: N20.2 Calculus of kidney with calculus of ureter (principal); I10 Essential (primary) hypertension; Z96.0 Presence of urogenital implants; Z88.5 Allergy status to narcotic agent; Z88.0 Allergy status to penicillin; Z88.8 Allergy status to other drugs, medicaments and biological substances
CPT/HCPCS: 74000; 74420; 82365; 88300; C1876; J2704; J3010

== ENCOUNTER 2016-10-22 07:00 | Day surgery (SDC) | payer MEDICARE ==
--- NOTE | 2016-10-14 13:12 | HP ---
HISTORY AND PHYSICAL: DATE OF PLANNED ADMISSION AND SURGERY: 10/22/16 HISTORY OF PRESENT ILLNESS: Ms. Adams is an 86-year-old white female who is admitted with a left renal calculus, status post placement of left ureteral stent for shockwave lithotripsy of the left renal calculus followed by cystoscopy and removal of the left ureteral stent. Ms. Adams was admitted to [facility] [place] on 07/31/16 with urosepsis and her workup showed a 1.2 cm obstructing calculus in the left ureter and another 2 cm stone in her bladder. She was taken urgently to the operating room on 08/01/16 where she had placement of left ureteral stent. She did very well and recovered from her urosepsis and was discharged home on oral antibiotics. She was admitted on 10/01/16 where she underwent a cystolithopaxy, left ureteroscopy and laser lithotripsy of the left proximal ureteral calculus. During the procedure, a fragment of the stone migrated inside the renal pelvis and could not be retrieved. She had placement of a ureteral stent. Postoperative KUB showed the stent in good position and a 6 mm calculus adjacent to the stent in the renal pelvis. The patient is now admitted for shockwave lithotripsy of the left renal calculus followed by cystoscopy and removal of the left ureteral stent. PAST MEDICAL HISTORY AND SYSTEM REVIEW: Patient has several medical problems. She is hypertensive, has history of seizure disorder, anemia, vitamin B12 deficiency, polyarthritis, polyneuropathy, bipolar disorder with major depressive disorder and anxiety. MEDICATIONS: She has been maintained on: 1. Tylenol. 2. Buspirone 10 mg twice a day for anxiety. 3. Cyanocobalamin 500 mg 2 tablets every morning. 4. Gabapentin 100 mg twice a day as needed. 5. Hydroxyzine 800 mg every 6 hours as needed. 6. Sennoside 8.6 mg 3 tablets every morning. 7. Sertraline 100 mg daily. 8. Trazodone 50 mg at bedtime. 9. Vitamin D 2000 units daily. 10. Zyprexa 12.5 mg at bedtime. ALLERGIES: She reports being allergic to OXYCODONE, AMBIEN, ROFECOXIB, SOLIFENACIN and PENICILLIN. PHYSICAL EXAMINATION GENERAL: Elderly white male who looks rather frail but otherwise fully mentally conscious. VITAL SIGNS: Blood pressure 130/70, pulse 80. HEART: Regular and rhythmic, no murmurs. LUNGS: Clear. ABDOMEN: Soft with no masses and no CVA tenderness. IMPRESSION: Residual left renal calculus, status post placement left ureteral stent. PLAN/RECOMMENDATIONS: Shockwave lithotripsy of the left renal calculus, followed by cystoscopy and removal of the left ureteral stent. I discussed the above plans with the patient, all her questions were answered. [id number]/[facility] #: [id number] [facility] SYSTEMLaquita
[~2016-10-22 07:00] MED LIST changes: -DiMENhydriNATE IV* 50 MG/ML VIAL IV PUSH PRN; -Iohexol 180 (CONTRAST) 10 ML SDV IV ONE; -Lidocaine 2% PF * 5 ML VIAL ONE; -Propofol* 10 MG/ML 20 ML BTL IV PUSH ONE; +Sodium Citrate/Citric Acid* 15 ML UDC PO ONE; -fentaNYL* 50 MCG/ML 2 ML VIAL (100 MCG VIAL) IV PRN; -fentaNYL* 50 MCG/ML 2 ML VIAL (100 MCG VIAL) ONE
[2016-10-22] MEDS ORDERED: Sodium Citrate/Citric Acid* 15 ML UDC ONE (07:26)
[2016-10-22] MEDS ORDERED: Gentamicin ADULT (*) 40 MG/ML VIAL ONE (08:04)
--- NOTE | 2016-10-22 08:07 | RAD ---
INDICATION: Shockwave lithotripsy. COMPARISON: Comparison is made with a prior CT of the abdomen and pelvis from July 30, 2016 and a prior KUB series from October 01, 2016. TECHNIQUE: Frontal supine films of the abdomen were obtained. FINDINGS: The small bowel and colon appear nondistended. There is a double-J stent catheter present on the left side. There are calculi which project over the lower pole of the left kidney measuring up to 0.6 cm in size. There are also calcifications adjacent to the distal portion of the stent catheter. IMPRESSION: STATUS POST LEFT URETERAL STENT PLACEMENT, LEFT RENAL CALCULI AND POSSIBLE LEFT URETERAL CALCULI.
[2016-10-22] MEDS ORDERED: Phenylephrine IV* 40 MCG/ML 10 ML SYRINGE ONE (09:00)
[2016-10-22] MEDS ORDERED: Lidocaine 2% PF * 5 ML VIAL ONE (09:00)
[2016-10-22] MEDS ORDERED: Propofol* 10 MG/ML 20 ML BTL IV PUSH ONE (09:00)
[2016-10-22 10:17] VITALS: BP 161/86
--- NOTE | 2016-10-23 02:17 | OP ---
DATE OF OPERATION: 10/22/16 [facility] DATE OF : 34 SURGEON: Gerardo Palomo MD ANESTHESIOLOGIST: Dr. Benito Styles. ANESTHESIA: General. PRE-OP DIAGNOSES: 1. Left renal calculus. 2. Status post placement, left ureteral stent. POST-OP DIAGNOSES: 1. Left renal calculus. 2. Status post placement, left ureteral stent. OPERATIVE PROCEDURE: 1. Shockwave lithotripsy of left renal calculus (6 to 7 mm). 2. Cystoscopy and removal of left ureteral stent. INDICATION FOR PROCEDURE: Ms. Adams is an 86-year-old white lady who was treated with an 1.2 cm calculus at the left ureteropelvic junction. She had laser lithotripsy of the stone about 3 weeks ago. There was a residual 6 mm calculus in the lower pole calyx of the left kidney. She still has the stent in place. The patient now is admitted for definitive treatment of the stone. PATHOLOGY: Preoperative KUB and fluoroscopy both showed a 6 to 7 cm radiopaque calculus in the lower pole infundibulum of the left kidney. The left ureteral stent was in good position. DESCRIPTION OF PROCEDURE: After successful general anesthesia, the patient was placed on the shockwave lithotripsy in the supine position. The left renal calculus was visualized in both the PA and oblique x-ray views and the position of the generator and the table were adjusted to have the stone into focus of the shockwaves. A total of 1700 shocks were then delivered at the rate of 90 shocks per minute. The proper positioning and fragmentation of the stone were monitored periodically. At the completion of the treatment, there was very good fragmentation of the stone. Decision was made to proceed with the stent removal. The patient was placed in the lithotomy position and was prepped and draped for cystoscopy. Cystoscopy was performed. The stent was pulled out intact. The patient tolerated the procedure well and left the operating room in good condition. The plan is to monitor her for postoperative colic or fever. [id number]/[facility] #: [id number] MTDD
== END 2016-10-22 10:56 | disposition home or self-care (01) ==
LOC: OR 07:00
PROVIDERS: ATTEND Urology
DX: N20.0 Calculus of kidney (principal); I10 Essential (primary) hypertension; M19.90 Unspecified osteoarthritis, unspecified site; R25.1 Tremor, unspecified; F31.9 Bipolar disorder, unspecified
CPT/HCPCS: 74000; A9270-GY; J1580; J2704

== ENCOUNTER 2017-01-16 10:19 | Observation (INO) | payer MEDICARE, MEDICAID ==
[2017-01-16] MEDS: NS 0.9% 1000 ML* 1,000 ML IV SCH (11:08)
[2017-01-16 11:13] LABS: Add Diff/Slide Review? Slide Review Added; Comments Flag Yes; Hematocrit 44 % (35-47); Hemoglobin 14.6 g/dl (12.0-16.0); Mean Corpuscular HGB Conc 33 g/dl (31-36); Mean Corpuscular Hemoglobin 30 pg (27-31); Mean Corpuscular Volume 91 fL (80-97); Mean Platelet Volume 9 um3 (7.4-10.4); Red Blood Count 4.84 10^6/ul (4.0-5.4); Red Cell Distribution Width 16 % (10.5-15); White Blood Count 4.3 10^3/ul (3.5-10.8)
[2017-01-16 11:25] LABS: Albumin 4.4 g/dL (3.2-5.2); C Reactive Protein 10.94 mg/L (< 5.00); Calcium 9.2 mg/dL (8.6-10.3); EGFR African American 91.8 (>60); EGFR Non-African American 71.4 (>60); Globulin 2.2 g/dL (2-4); Potassium 4.1 mmol/L (3.5-5.0); Total Bilirubin 0.5 mg/dL (0.2-1.0); Total Protein 6.6 g/dL (6.4-8.9)
--- NOTE | 2017-01-16 12:14 | RAD ---
HISTORY: Constipation COMPARISONS: October 22, 2016 VIEWS: Frontal and left lateral decubitus views of the abdomen FINDINGS: BOWEL: There is a nonobstructive bowel gas pattern. There is a large amount of stool within the colon. CALCULI: There are no abnormal calculi. BONES AND SOFT TISSUES: Degenerative changes are noted OTHER FINDINGS: The lung bases are clear. There is no subphrenic gas. IMPRESSION: NONOBSTRUCTIVE BOWEL GAS PATTERN. LARGE AMOUNT OF STOOL THROUGHOUT THE COLON
[2017-01-16] MEDS ORDERED: Magnesium CITRATE* 300 ML BTL PO ONE (12:17)
[2017-01-16] MEDS ORDERED: Sodium Phosphate ADULT ENEMA* 118 ml bottle PR ONE (12:17)
[2017-01-16] MEDS ORDERED: Polyethylene Glycol 3350* 17 GM PACKET PO PRN (12:17)
[2017-01-16 12:40] LABS: Urine Bacteria Absent (Absent); Urine Bilirubin Negative (Negative); Urine Glucose Negative (Negative); Urine Nitrite Negative (Negative)
[2017-01-16] MEDS ORDERED: LORazepam INJ* 2 MG/ML 1 ML VIAL IV PUSH PRN (14:12)
[2017-01-16] MEDS ORDERED: Ondansetron INJ* 2 MG/ML VIAL IV ONE (14:12)
[2017-01-16] MEDS ORDERED: Magnesium Hydroxide LIQ* 30 ML UDC PO PRN (15:00)
[2017-01-16] MEDS ORDERED: Fluticasone NASAL SPRAY 50MCG* 16 gm SPRAY BTL BOTH NARES PRN (15:05)
[2017-01-16] MEDS ORDERED: Meclizine TAB* 12.5 MG PO PRN (15:05)
[2017-01-16] MEDS ORDERED: Acetaminophen TAB* 325 MG PO PRN (15:05)
[2017-01-16] MEDS ORDERED: traZODone TAB* 50 MG TAB PO PRN (15:05)
[2017-01-16] MEDS ORDERED: Nystatin TOP POWDER* 15 GM BTL TOPICAL PRN (15:05)
[2017-01-16] MEDS ORDERED: Senna TAB PO PRN (15:06)
[2017-01-16] MEDS ORDERED: LORazepam TAB(*) 0.5 MG PO PRN (15:54)
[2017-01-16] MEDS: Enoxaparin(*) 40 MG/0.4 ML SYR SUBCUT SCH (16:57)
[2017-01-16] MEDS: Phenytoin CAP(*) 100 MG CAP.ER PO SCH (18:20)
[2017-01-16] MEDS: clonazePAM TAB(*) 1 MG PO SCH (18:20)
[2017-01-16] MEDS: Docusate CAP* 100 MG PO SCH ×2 (18:20→18:21)
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
[2017-01-16] MEDS: OLANzapine TAB* 2.5 MG PO SCH (19:33)
[2017-01-16] MEDS ORDERED: Senna TAB PO SCH (21:00)
[2017-01-16] MEDS: Ondansetron INJ* 2 MG/ML VIAL IV SCH (21:59)
[2017-01-17] MEDS: NS 0.9% 1000 ML* 1,000 ML IV SCH ×3 (00:42→17:20)
[2017-01-17] MEDS: Ondansetron INJ* 2 MG/ML VIAL IV SCH ×6 (01:27→23:52)
[2017-01-17] MEDS: Phenytoin CAP(*) 100 MG CAP.ER PO SCH ×2 (05:14→17:29)
[2017-01-17] MEDS: Docusate CAP* 100 MG PO SCH ×2 (05:18→17:29)
[2017-01-17] MEDS: Sertraline* 100 MG TAB PO SCH (08:23)
[2017-01-17] MEDS: Enoxaparin(*) 40 MG/0.4 ML SYR SUBCUT SCH (15:15)
[2017-01-17] MEDS: clonazePAM TAB(*) 1 MG PO SCH (17:29)
[2017-01-17] MEDS: OLANzapine TAB* 2.5 MG PO SCH (17:29)
[2017-01-17 18:01] LABS: Phenytoin 20.9 mcg/mL (10-20)
[2017-01-18] MEDS: NS 0.9% 1000 ML* 1,000 ML IV SCH (01:43)
[2017-01-18] MEDS: Ondansetron INJ* 2 MG/ML VIAL IV SCH ×4 (04:09→13:00)
[2017-01-18] MEDS: Phenytoin CAP(*) 100 MG CAP.ER PO SCH (07:39)
[2017-01-18] MEDS: Docusate CAP* 100 MG PO SCH (07:39)
[2017-01-18] MEDS: Sertraline* 100 MG TAB PO SCH (07:56)
[2017-01-18] MEDS ORDERED: Polyethylene Glycol 3350* 17 GM PACKET PO SCH (09:00)
--- NOTE | 2017-01-18 12:00 | DS ---
CC: Eli Zazueta MD DISCHARGE SUMMARY: DATE OF ADMISSION: 01/16/17 DATE OF DISCHARGE: 01/18/17 HOSPITAL COURSE: This 86-year-old woman came in at one point with a complaint of constipation. EMS was concerned about the hygienic conditions of the home as well as the patient being found in a soaked nightgown. There was concern about the conditions and the treatment at home and the patient was kept overnight to look into the situation at home. The patient actually had a bowel movement in the emergency room. I think her constipation could be managed well with oral laxatives at home. She probably should be taking polyethylene glycol or a similar laxative on a daily basis. If the amount I am prescribing on discharge is not enough, it could be made twice a day or increased as needed to provide adequate bowel movements. No other changes were made in her medications. Her condition seemed good. She did have a small sacral decubitus ulcer which should be followed up by her primary care doctor. FINAL DIAGNOSES: 1. Constipation. 2. Hypertension. 3. Seizure disorder. 4. Chronic back pain. 5. History of kidney stones. 6. Sacral decubitus. 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 DISCHARGE MEDICATIONS: 1. Polyethylene glycol 17 g daily. 2. Phenytoin 100 mg b.i.d. 3. Milk of magnesia 15 to 30 mL every other day p.r.n. 4. Nystatin powder t.i.d. to affected areas p.r.n. 5. Olanzapine 2.5 mg h.s. 6. Sertraline 100 mg daily. 7. Meclizine 25 mg t.i.d. p.r.n. 8. Acetaminophen 650 mg 4 times a day p.r.n. 9. Fluticasone nasal spray 2 sprays both nares b.i.d. p.r.n. 10. Clonazepam 1 mg h.s. 11. Clotrimazole 1% cream b.i.d. to affected areas. 12. Tramadol 50 to 100 mg t.i.d. p.r.n. 13. Trazodone 50 mg at h.s. [id number]/[facility] #: [id number] [facility]
[2017-01-18 12:14] VITALS: BP 133/49
--- NOTE | 2017-01-21 10:42 | PN ---
Progress Note - Progress Note Date of Service: 01/21/17 Note: noted that pt's urine cx turned positive for E. faecalis. A prescription for 5 days tx with macrodantin was sent to [facility]. Pt was called and notified
== END 2017-01-18 13:40 | disposition home or self-care (01) ==
LOC: ED 10:19 → MED 14:18
PROVIDERS: ADMIT Internal Medicine; ATTEND Internal Medicine
DX: K59.00 Constipation, unspecified (principal); G40.909 Epilepsy, unspecified, not intractable, without status epilepticus; Z87.442 Personal history of urinary calculi; L89.159 Pressure ulcer of sacral region, unspecified stage; Z88.0 Allergy status to penicillin; Z88.8 Allergy status to other drugs, medicaments and biological substances; R53.1 Weakness; M54.5 Low back pain; G89.29 Other chronic pain; Z79.899 Other long term (current) drug therapy; N39.0 Urinary tract infection, site not specified; B95.2 Enterococcus as the cause of diseases classified elsewhere
CPT/HCPCS: 36415; 74020; 80053; 80185; 81003; 81015; 82270; 83690; 85025; 86140; 87077; 87086; 87186; 93005; 96361; 96372; 96374; 96375; 96376; 99284; A9270-GY; G0378; J1650; J2060; J2405

== ENCOUNTER 2017-03-02 14:36 | Inpatient (IN) | payer MEDICAID, MEDICARE ==
[2017-03-02] MEDS ORDERED: NS 0.9% 1000 ML* 1,000 ML IV ONE (15:49)
--- NOTE | 2017-03-02 16:28 | RAD ---
HISTORY: Altered mental status COMPARISONS: June 05, 2015 TECHNIQUE: Multiple contiguous axial CT scans were obtained of the head without intravenous contrast. FINDINGS: The study is limited by patient motion artifact. HEMORRHAGE/INFARCT: There is no hemorrhage or acute infarct. MASSES/SHIFT: There is no mass or shift. EXTRA-AXIAL SPACES: There are no extra-axial fluid collections. SULCI AND VENTRICLES: There is diffuse and proportional enlargement of the sulci and ventricles. CEREBRUM: There is hypoattenuation of the periventricular and subcortical white matter. BRAINSTEM: There are no focal parenchymal abnormalities. CEREBELLUM: There are no focal parenchymal abnormalities. VESSELS: The vessels are grossly normal. PARANASAL SINUSES: The paranasal sinuses are clear. There are bilateral mastoid effusions. There is fluid within the middle ear cavities bilaterally. ORBITS: The orbits are unremarkable. BONES AND SOFT TISSUE: No bone or soft tissue abnormalities are noted. OTHER: None IMPRESSION: 1. NO ACUTE INTRACRANIAL PATHOLOGY. 2. DIFFUSE INVOLUTIONAL CHANGE. 3. CHRONIC SMALL VESSEL ISCHEMIC CHANGES. 4. BILATERAL OTITIS/MASTOIDITIS
--- NOTE | 2017-03-02 16:32 | RAD ---
HISTORY: Altered mental status COMPARISONS: July 30, 2016 VIEWS: 1: frontal portable view of the chest at C4 5:00 PM FINDINGS: LINES AND TUBES: None. CARDIOMEDIASTINAL SILHOUETTE: The cardiomediastinal silhouette is normal for portable technique. PLEURA: The costophrenic angles are sharp. No pleural abnormalities are noted. LUNG PARENCHYMA: There is hyperinflation. ABDOMEN: The upper abdomen is clear. There is no subphrenic gas. BONES AND SOFT TISSUES: No bone or soft tissue abnormalities are noted. IMPRESSION: HYPERINFLATION. NO ACTIVE CARDIOPULMONARY DISEASE.
[2017-03-02] MEDS ORDERED: Levofloxacin 750 MG IVPREMIX(* 750 MG/150 ML BAG IVPB ONE (17:01)
[2017-03-02 18:04] LABS: Hematocrit 40 % (35-47); Hemoglobin 12.8 g/dl (12.0-16.0); Mean Corpuscular HGB Conc 33 g/dl (31-36); Mean Corpuscular Hemoglobin 30 pg (27-31); Mean Corpuscular Volume 93 fL (80-97); Mean Platelet Volume 9 um3 (7.4-10.4); Red Blood Count 4.24 10^6/ul (4.0-5.4); Red Cell Distribution Width 15 % (10.5-15); White Blood Count 6.2 10^3/ul (3.5-10.8)
[2017-03-02 18:11] LABS: Budding Yeast Present (Absent); Urine Bacteria 1+ (Absent); Urine Bilirubin Negative (Negative); Urine Glucose Negative (Negative); Urine Nitrite Negative (Negative)
[2017-03-02 18:19] LABS: Albumin 3.7 g/dL (3.2-5.2); BUN/Creatinine Ratio 19.4 (8-20); EGFR African American 117.9 (>60); EGFR Non-African American 91.7 (>60); Total Bilirubin 0.4 mg/dL (0.2-1.0); Total Protein 5.7 g/dL (6.4-8.9)
[2017-03-02 18:21] LABS: Troponin I 0.01 ng/mL (<0.04)
[2017-03-02 18:45] LABS: Calcium 8.8 mg/dL (8.6-10.3)
[2017-03-02] MEDS ORDERED: Aspirin TAB* 325 MG PO ONE (19:01)
[2017-03-02] MEDS ORDERED: Ondansetron INJ* 2 MG/ML VIAL IV PRN (19:34)
[2017-03-02] MEDS ORDERED: Magnesium Hydroxide LIQ* 30 ML UDC PO PRN (19:34)
[2017-03-02] MEDS ORDERED: NS 0.9% 1000 ML* 1,000 ML IV SCH (19:45)
[2017-03-02 20:17] LABS: TSH (Thyroid Stimulating Horm) 0.09 mcIU/mL (0.34-5.60)
[2017-03-02 20:28] LABS: Erythrocyte Sed Rate 9 mm/Hr (0-40)
[2017-03-02] MEDS: Heparin VIAL(*) 5000 UNITS/ML VIAL (FIVE THOUSAND) SUBCUT SCH (20:47)
[2017-03-02] MEDS ORDERED: Hydrocortisone 1% CREAM* 30 GM TUBE TOPICAL SCH (21:00)
[2017-03-02] MEDS: Clotrimazole 1% CREAM* 45 GM TOPICAL SCH (22:01)
[2017-03-02] MEDS: Moisturizing CREAM* 113 GM JAR TOPICAL SCH (22:02)
--- NOTE | 2017-03-03 03:00 | HP ---
CC: Dr. Eli Zazueta * MEDICINE HISTORY AND PHYSICAL: DATE OF ADMISSION: 03/02/17 PROVIDER: Jil Carmichael NP ATTENDING PHYSICIAN: Dr. Parmjit Manzanares * (dictated by Jil Carmichael NP) PRIMARY CARE PROVIDER: Dr. Eli Zazueta CONSULTING PHYSICIAN: Dr. Jameel Greenwood. CHIEF COMPLAINT: Right facial droop with slurred speech. HISTORY OF PRESENT ILLNESS: This is an 86-year-old female, who was brought in by ambulance to the ED after family noted that she had a right-sided facial droop with slurred speech. I did attempt to reach the family and the patient's power of jack machine operator by phone, but I was unable to reach anyone at the time of my interview. History was obtained from the patient to the best of her ability and from the ER physician and nursing notes. Apparently, the patient states that last night she was feeling at her normal, but reported some dysuria to her son last evening. She typically wakes up at 7 in the morning, but there was concern that she slept into 1 o'clock this afternoon which is well beyond her normal. Due to her lethargy as well as her lack of eating and drinking, EMS services were called for the patient to receive further evaluation. Per the ER physician, when he spoke with the patient's son, he appears to have limited understanding of the patient's condition and was not a good historian. Again, I was unable to reach the power of jack machine operator, although the patient does state that she also has a home health aide named Whitney who I did not have a number for. The patient was brought in with concern mainly for the right-sided facial droop, lethargy, and slurred speech. I am unable to determine her baseline. The patient currently denies any recent fever, chills, cold or flu like symptoms. She feels like she is unable to determine her speech is different, but does not endorse having difficulty with word finding. She does report that she has issues with drooling at baseline and has a red irritated rashy area to her right shoulder that she states is from persistent drooling. She denies any recent chest pain, trouble breathing, abdominal pain, nausea, vomiting, and diarrhea. She does endorse some dysuria. She denies cough, sore throat, ear pain, headache, dizziness. She denies any visual complaints, joint pains or muscle pains. She does have a history of sacral decubitus ulcer. She states that she saw Dr. Mario back in December and was told that she need to follow up within 7 weeks, although she cannot tell me when the exact timing of that followup is to occur. Here in the ER, the patient had a CT of the brain. She unfortunately was outside of the window for tPA. Her CT of the brain showed no acute intracranial pathology. Diffuse involutional change, chronic small vessel ischemic changes and bilateral otitis, mastoiditis. Her laboratory findings were mostly unremarkable. Her urine does show 1+ bacteria. PAST MEDICAL HISTORY: Includes: 1. Hypertension. 2. Seizure disorder. 3. Osteoarthritis. 4. B12 deficiency. 5. Chronic back pain. 6. Weakness. 7. Obesity. 8. History of kidney stones, status post ureteral stent. 9. Depression. 10. Sacral decubitus ulcer. PAST SURGICAL HISTORY: Includes: 1. Appendectomy. 2. Total hysterectomy. 3. Bilateral knee replacements. HOME MEDICATIONS: 1. Sertraline 100 mg daily. 2. Zyprexa 2.5 mg at bedtime. 3. Clonazepam 1 mg at bedtime. 4. Phenytoin 100 mg b.i.d. These are the only medications that the patient confirmed that are on her home med list that was provided by the family. ALLERGIES: Include, PENICILLIN, OXYCODONE, ZOLPIDEM, OXYCODONE, ROFECOXIB, and SOLIFENACIN. FAMILY HISTORY: Unobtainable at this time. SOCIAL HISTORY: The patient denies tobacco, alcohol or illicit drug use. She lives at home with her son. She does have a power of jack machine operator who is a server software engineer who checks in on her and a home health aide named Whitney. Her emergency contact and surrogate decision maker is currently Johnson Prescott who is her power of jack machine operator. REVIEW OF SYSTEMS: A 14-point review of systems was attempted. All pertinent positives and negatives as per HPI. PHYSICAL EXAMINATION GENERAL APPEARANCE: This is an elderly female who is lying in the ED stretcher in no acute distress. She is very pleasant and interactive. VITAL SIGNS: Temperature 98.4, heart rate 68, respiratory rate 16, blood pressure 141/49, and O2 saturation is 97% on room air. HEENT: Head is atraumatic, normocephalic. Pupils are equal, round, and reactive to light. Extraocular movements are intact. Tympanic membranes are intact. There is moderate amount of cerumen in the bilateral ear canals. Oral mucosa is somewhat tacky and dry and no oropharyngeal erythema or exudate noted. The patient does have a right-sided facial droop. NECK: Supple. The patient has full range of motion. No carotid bruits noted. There was no JVD noted. No lymphadenopathy appreciated. LUNGS: Clear to auscultation. CARDIAC: S1 and S2 heart sounds. Regular rate and rhythm. No murmurs, rubs, or gallops. No peripheral edema noted. The patient had 2+ distal pulses that are symmetric and equal. ABDOMEN: Soft, nontender, and nondistended. Bowel sounds are normoactive. MUSCULOSKELETAL: The patient was able to move all extremities and able to examine full set of range of motion. NEURO: The patient is alert and oriented to person, place, and time. There is some mild right-sided weakness with the patient's junior financial analyst and with right leg lifts. The patient is able to move all extremities and follows commands appropriately. There is a resting tremor present most notably in the upper extremities. Again right facial droop is present. No pronator drift noted in the upper and lower extremities. I was unable to ambulate the patient secondary the patient reported inability to ambulate without max assist. SKIN: Limited assessment. The patient does have a right pruritic area of excoriation and redness to the right shoulder that appears to be a combination of candidiasis as well as generalized irritation. There is a healing sacral decubitus ulcer. I did not appreciate any open areas or drainage coming from the sacrum. Old scarring noted. LABORATORY DATA AND DIAGNOSTIC STUDIES: CBC: WBC 6.2, hemoglobin 12.8, hematocrit 40, platelet count 171. CMP: Sodium 142, potassium 4.0, chloride 107, carbon dioxide 29, BUN 12, creatinine 0.62, glucose 92, lactic acid 0.7, calcium 8.8. Total bilirubin 0.4, AST 12, ALT 6, alk phos 53. Troponin 0.01. Total protein 5.7. Urinalysis positive for 1+ leukocyte esterase, 1+ bacteria, serotonin level of 17. EKG showed sinus rhythm at a rate of 62. No ST or T-wave changes concerning for acute ischemia. Chest x-ray shows hyperinflation, but no acute cardiopulmonary disease. CT brain as previously stated in the HPI. Old medical records were reviewed. ASSESSMENT AND PLAN: This is an 86-year-old female who presents today with right- sided facial droop that is concerning for potential transient ischemic attack versus cerebrovascular accident versus right-sided mastoiditis. She will be admitted to the telemetry floor as an inpatient for further workup and evaluation. Plan is as follows: 1. Right-sided facial droop with slurred speech. Admit to telemetry. We will continue cerebrovascular accident workup given her risk factors and check a lipid profile in the morning as well as hemoglobin A1c. The patient has had a CT of the brain. We will also add in carotid Doppler studies and MRI of the brain. I did discuss the patient with Dr. Greenwood who has agreed to see the patient tomorrow. Additionally, we will obtain echocardiogram with bubble study , continue with neuro checks and have a bedside dysphagia screen to evaluate the patient's ability to swallow. Should the patient fail her bedside dysphagia screen, we will order Speech consult to be done on Saturday. The patient has already got PT and OT evaluations and has received aspirin in the ED. We will continue her on aspirin 81 mg daily. In regards to the patient's concern for acute mastoiditis, the patient has received Levaquin here in the ER which we will continue. 2. Concern for urinary tract infection. Again, the patient is on Levaquin that was started to cover the concern with mastoiditis. This should also cover urinary pathogens. Of note, the patient has had multiple urine cultures in the past that have various sensitivities and resistances. So at this point in time , I feel Levaquin is probably appropriate until the urine culture returns with quality count and new sensitivity. 3. Concern for mastoiditis. The patient is not currently complaining of any ear pain or head pain. However, we will continue with Levaquin in the presence of potentially new right-sided facial droop and slurred speech until her stroke workup is complete. 4. History of hypertension. The patient is not currently on any antihypertensives and blood pressure is controlled. We will allow for permissive hypertension in the presence of her potentially acute neurological event. Continue to monitor. The patient is not in any need of antihypertensives at this time. 5. History of seizure disorder. Continue home phenytoin. The patient's level is within normal limits and does not show signs of toxicity. 6. History of depression. Continue sertraline. 7. History of sacral decubitus. The patient appears to have a healing wound and should follow up with Dr. Mario as an outpatient as previously directed. We will continue to enforce strict skin integrity guidelines in order to prevent any further skin breakdown. 8. History of B12 deficiency. The patient is not on B12 currently, so I will check B12 level to determine if that to be reinitiated for the patient. 9. History of chronic pain. The patient is not on any chronic pain medication. She is ordered p.r.n. Tylenol. 10. Fluids, electrolytes, and nutrition: The patient is currently not ordered diet until she is able to pass her dysphagia screen. She is to receive another liter of fluid unless she is unable to take in p.o. in which event fluids could be continued. 11. DVT prophylaxis: She is on subcu heparin. 12. Code status: Copy of the the patient's MOLST form from 01/16/13 was reviewed. The patient states that this is correct and she indicates that she wishes to be a DNR. 13. Disposition: The patient is from home and does have home health aide in the house to help her, given her apparent deconditioning, she may benefit from subacute rehab or higher level of care. TIME SPENT: Greater than 60 minutes was spent in the admission of this patient , with more than half that time was spent [id number] with the patient obtaining history and physical, performing physical examination and reviewing the plan of care. Plan of care was also reviewed with my attending, Dr. Manzanares, who is in agreement. JIL CARMICHAEL, YAMIL [id number]/CPS #: [id number] JOJO
[2017-03-03] MEDS: Heparin VIAL(*) 5000 UNITS/ML VIAL (FIVE THOUSAND) SUBCUT SCH ×3 (05:19→20:23)
[2017-03-03 05:23] LABS: Hematocrit 37 % (35-47); Mean Corpuscular HGB Conc 33 g/dl (31-36); Mean Corpuscular Hemoglobin 31 pg (27-31); Mean Corpuscular Volume 93 fL (80-97); Mean Platelet Volume 9 um3 (7.4-10.4); Red Blood Count 3.91 10^6/ul (4.0-5.4); Red Cell Distribution Width 15 % (10.5-15); White Blood Count 4.1 10^3/ul (3.5-10.8)
[2017-03-03 05:52] LABS: BUN/Creatinine Ratio 17.9 (8-20); Calcium 8.6 mg/dL (8.6-10.3); EGFR African American 132.6 (>60); EGFR Non-African American 103.1 (>60); HDL Cholesterol 35.6 mg/dL; Potassium 3.5 mmol/L (3.5-5.0)
[2017-03-03] MEDS: Acetaminophen TAB* 325 MG PO PRN (06:02)
[2017-03-03 06:11] LABS: Free T3 2.6 pg/mL (2.5-3.9); Free T4 0.88 ng/dL (0.61-1.12)
[2017-03-03 06:19] LABS: Folate 2.69 ng/mL (>3.99)
[2017-03-03] MEDS: Aspirin Low Dose CHEW TAB* 81 MG PO SCH (09:06)
[2017-03-03] MEDS: Clotrimazole 1% CREAM* 45 GM TOPICAL SCH ×2 (09:07→20:22)
[2017-03-03] MEDS: Moisturizing CREAM* 113 GM JAR TOPICAL SCH ×2 (09:07→20:22)
--- NOTE | 2017-03-03 10:22 | ED ---
Monse Zaldivar Thomas, scribed for Johnson Hou MD on 03/02/17 at 1615 . Neurological HPI - HPI Summary HPI Summary: The pt is a 86 y/o F BIBA to the ED after she was noted to have R-sided facial droop and slurred speech with onset this this morning. History is supplied by the patients son and power of securities attorney due to the patients lethargic status. She has not been eating or drinking today and she appears dehydrated. The patient is speaking slowly and minimally. She is lethargic. Last night, the patient told her son I have a UTI. At baseline, she has some R-sided facial droop, although per son and power of securities attorney her current facial droop is increased from baseline. She is fatigued and woke up today at 13:00 when she normally wakes up at 07:00. 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 Hx From Patient Unobtainable Due To: Other - Lethargy Onset/Duration: Started hours ago - onset this morning, Still Present Timing: Constant Current Severity: Moderate Pain Intensity: 0 Pain Scale Used: 0-10 Numeric Character: Other: - Fatigue, lethargy, facial droop, slurred speech, dehydration Aggravating: Nothing Alleviating: Nothing - Additional Pertinent History Primary Care Physician: RENEE - Allergy/Home Medications Allergies/Adverse Reactions: Allergies Allergy/AdvReac Type Severity Reaction Status Date / Time Penicillins [PCN] Allergy Severe anaph Verified 01/16/17 10:27 Oxybutynin Allergy Unknown Verified 01/16/17 10:27 Reaction Details Zolpidem [From Ambien] Allergy Unknown Verified 01/16/17 10:27 Reaction Details Oxycodone AdvReac Intermediate Nausea Verified 01/16/17 10:27 Rofecoxib [From Vioxx] AdvReac Intermediate Edema Verified 01/16/17 10:27 Solifenacin [From Vesicare] AdvReac Intermediate See Comment Verified 01/16/17 10:27 PMH/Surg Hx/FS Hx/Imm Hx Previously Healthy: No Endocrine/Hematology History: Denies: Hx Anticoagulant Therapy, Hx Blood Disorders, Hx Blood Transfusions, Hx Bone Marrow Disease, Hx Diabetes, Hx Systemic Lupus Erythematosus, Hx Sickle Cell Disease, Hx Thyroid Disease, Hx Anemia, Hx Unexplained Bleeding, Other Endocrine/Hematological Disorders Cardiovascular History: Reports: Hx Hypertension Denies: Hx Angina, Hx Angioplasty, Hx Auto Implanted Cardiovert Defib, Hx Cardiac Arrest, Hx Cardiomegaly, Hx Congenital Heart Disease, Hx Congestive Heart Failure, Hx Coronary Artery Disease, Hx Deep Vein Thrombosis, Hx Hypercholesterolemia, Hx Hypotension, Hx Pacemaker/ICD, Hx Peripheral Vascular Disease, Hx Rheumatic Fever, Hx Syncope, Hx Valvular Heart Disease, Other Cardiovascular Problems/Disorders Respiratory History: Denies: Hx Asthma, Hx Chronic Bronchitis, Hx Chronic Obstructive Pulmonary Disease (COPD), Hx Cystic Fibrosis, Hx Lung Cancer, Hx Pleural Effusion, Hx Pneumonia, Hx Pulmonary Edema, Hx Pulmonary Embolism, Hx Seasonal Allergies, Hx Sleep Apnea, Other Respiratory Problems/Disorders GI History: Denies: Hx Cirrhosis, Hx Crohn's Disease, Hx Diverticulosis, Hx Gall Bladder Disease, Hx Gastroesophageal Reflux Disease, Hx Gastrointestinal Bleed, Hx Hiatal Hernia, Hx Irritable Bowel, Hx Jaundice, Hx Obstructive Bowel, Hx Ileostomy, Hx Pyloric Stenosis, Hx Ulcer, Other GI Disorders History: Reports: Hx Kidney Stones Denies: Hx Acute Renal Failure, Hx Benign Prostatic Hyperplasia, Hx Chronic Renal Failure, Hx Dialysis, Hx Kidney Infection, Other Problems/Disorders Musculoskeletal History: Reports: Hx Arthritis, Hx Back Problems, Hx Osteoporosis, Other Musculoskeletal History Denies: Hx Bursitis, Hx Congenital Bone Abnormalities, Hx Fibromyalgia, Hx Gout, Hx Orthopedic Injury, Hx Scoliosis, Hx Tendonitis Sensory History: Denies: Hx Cataracts, Hx Contacts or Glasses, Hx Eye Injury, Hx Eye Prosthesis, Hx Glaucoma, Hx Macular Degeneration, Hx Vision Problem, Hx Deafness , Hx Hearing Aid, Hx Hearing Problem, Other Sensory Impairments Opthamlomology History: Denies: Hx Cataracts, Hx Contacts or Glasses, Hx Eye Injury, Hx Eye Prosthesis, Hx Glaucoma, Hx Macular Degeneration, Hx Vision Problem, Other Sensory Impairments Neurological History: Reports: Hx Migraine, Hx Seizures, Other Neuro Impairments /Disorders - hx of concussion at 19yrs old Denies: Hx Dementia, Hx Developmental Delay, Hx Headaches, Hx Spinal Cord Injury, Hx Transient Ischemic Attacks (TIA) Psychiatric History: Reports: Hx Depression, Hx Community Mental Health Tx Denies: Hx Anxiety, Hx Attention Deficit Hyperactivity Disorder, Hx Eating Disorder, Hx Panic Disorder, Hx Post Traumatic Stress Disorder, Hx Inpatient Treatment, Hx Schizophrenia, Hx Bipolar Disorder, Hx Suicide Attempt, Hx Substance Abuse, Other Psychiatric Issues/Disorders - Cancer History Hx Chemotherapy: No Hx Radiation Therapy: No - Surgical History Surgery Procedure, Year, and Place: BILAT KNEES, appy, hysterectomy Hx Anesthesia Reactions: No - Immunization History Date of Tetanus Vaccine: unknown Date of Influenza Vaccine: unknown Infectious Disease History: No Infectious Disease History: Denies: Hx Clostridium Difficile, Hx Hepatitis, Hx Human Immunodeficiency Virus (HIV), Hx of Known/Suspected MRSA, Hx Shingles, Hx Tuberculosis, Traveled Outside the [place] in Last 30 Days - Family History Known Family History: Positive: Other - Negative anxiety, negative depression - Social History Lives: With Family Alcohol Use: None Hx Substance Use: No Substance Use Type: Reports: None, Prescribed Hx Tobacco Use: No Smoking Status (MU): Never Smoked Tobacco Length of Time of Smoking/Using Tobacco: 15 years Have You Smoked in the Last Year: No Review of Systems Positive: Fatigue, Other - Dehydrated, lethargy Neurological: Other - R-sided facial droop Positive: Slurred Speech All Other Systems Reviewed And Are Negative: Yes Physical Exam - Summary Physical Exam Summary: Appearance: The patient is well-nourished in no acute distress and in no acute pain. Skin: The skin is warm and dry and skin color reflects adequate perfusion. HEENT: The head is normocephalic and atraumatic. The pupils are equal and reactive. The conjunctivae are clear and without drainage. Nares are patent and without drainage. Mouth reveals dry mucous membranes and the throat is without erythema and exudate. The external ears are intact. The ear canals are patent and without drainage. The tympanic membranes are intact. Neck: The neck is supple with full range of motion and non-tender. There are no carotid bruits. There is no neck vein distension. Respiratory: Chest is non-tender. Lungs are clear to auscultation and breath sounds are symmetrical and equal. Cardiovascular: Heart is regular rate and rhythm. There is no murmur or rub auscultated. There is no peripheral edema and pulses are symmetrical and equal. Abdomen: The abdomen is soft and non-tender. There are normal bowel sounds heard in all four quadrants and there is no organomegaly palpated. Musculoskeletal: There is no back tenderness noted. Extremities are non-tender with full range of motion. There is good capillary refill. There is no peripheral edema or calf tenderness elicited. Neurological: Patient is alert and oriented to person, place and time. The patient has symmetrical motor strength in all four extremities. Cranial nerves are grossly intact. Deep tendon reflexes are symmetrical and equal in all four extremities. She has a resting tremor. She has right-sided facial droop. She appears more weak on the right than the left side. Psychiatric: The patient has an appropriate affect and does not exhibit any anxiety or depression. Triage Information Reviewed: Yes Vital Signs On Initial Exam: Initial Vitals BP 153/62 03/02/17 15:19 Vital Signs Reviewed: Yes Diagnostics - Vital Signs Vital Signs Temp Pulse Resp BP Pulse Ox 03/02/17 15:22 67 17 98 03/02/17 15:20 98.4 F 70 13 153/62 97 03/02/17 15:19 153/62 - Laboratory Lab Results: Lab Results 03/02/17 03/02/17 03/02/17 Range/Units 17:44 17:44 17:44 WBC 6.2 (3.5-10.8) 10^3/ul RBC 4.24 (4.0-5.4) 10^6/ul Hgb 12.8 (12.0-16.0) g/dl Hct 40 (35-47) % MCV 93 (80-97) fL MCH 30 (27-31) pg MCHC 33 (31-36) g/dl RDW 15 (10.5-15) % Plt Count 171 (150-450) 10^3/ul MPV 9 (7.4-10.4) um3 Neut % (Auto) 61.2 (38-83) % Lymph % (Auto) 28.4 (25-47) % [place] % (Auto) 9.5 H (1-9) % Eos % (Auto) 0.1 (0-6) % Baso % (Auto) 0.8 (0-2) % Absolute Neuts (auto) 3.8 (1.5-7.7) 10^3/ul Absolute Lymphs (auto) 1.8 (1.0-4.8) 10^3/ul Absolute Monos (auto) 0.6 (0-0.8) 10^3/ul Absolute Eos (auto) 0 (0-0.6) 10^3/ul Absolute Basos (auto) 0 (0-0.2) 10^3/ul Absolute Nucleated RBC 0.01 10^3/ul Nucleated RBC % 0.2 ESR 9 (0-40) mm/Hr INR (Anticoag Therapy) (0.89-1.11) Sodium 142 (133-145) mmol/L Potassium 4.0 (3.5-5.0) mmol/L Chloride 107 (101-111) mmol/L Carbon Dioxide 29 (22-32) mmol/L Anion Gap 6 (2-11) mmol/L BUN 12 (6-24) mg/dL Creatinine 0.62 (0.51-0.95) mg/dL Est GFR ( Amer) 117.9 (>60) Est GFR (Non-Af Amer) 91.7 (>60) BUN/Creatinine Ratio 19.4 (8-20) Glucose 92 (70-100) mg/dL Lactic Acid 0.7 (0.5-2.0) mmol/L Calcium 8.8 (8.6-10.3) mg/dL Total Bilirubin 0.40 (0.2-1.0) mg/dL AST 12 L (13-39) U/L ALT 6 L (7-52) U/L Alkaline Phosphatase 53 (34-104) U/L Troponin I 0.01 (<0.04) ng/mL Total Protein 5.7 L (6.4-8.9) g/dL Albumin 3.7 (3.2-5.2) g/dL Globulin 2.0 (2-4) g/dL Albumin/Globulin Ratio 1.9 (1-3) TSH 0.09 L (0.34-5.60) mcIU/mL Urine Color Urine Appearance Urine pH (5-9) Ur Specific [place] (1.010-1.030) Urine Protein (Negative) Urine Ketones (Negative) Urine Blood (Negative) Urine Nitrate (Negative) Urine Bilirubin (Negative) Urine Urobilinogen (Negative) Ur Leukocyte Esterase (Negative) Urine WBC (Auto) (Absent) Urine RBC (Auto) (Absent) Ur Squamous Epith Cells (Absent) Urine Bacteria (Absent) Hyaline Casts (Absent) Urine Yeast (Absent) Urine Glucose (Negative) Phenytoin 17.0 (10-20) mcg/mL 03/02/17 03/02/17 Range/Units 17:44 17:44 WBC (3.5-10.8) 10^3/ul RBC (4.0-5.4) 10^6/ul Hgb (12.0-16.0) g/dl Hct (35-47) % MCV (80-97) fL MCH (27-31) pg MCHC (31-36) g/dl RDW (10.5-15) % Plt Count (150-450) 10^3/ul MPV (7.4-10.4) um3 Neut % (Auto) (38-83) % Lymph % (Auto) (25-47) % [place] % (Auto) (1-9) % Eos % (Auto) (0-6) % Baso % (Auto) (0-2) % Absolute Neuts (auto) (1.5-7.7) 10^3/ul Absolute Lymphs (auto) (1.0-4.8) 10^3/ul Absolute Monos (auto) (0-0.8) 10^3/ul Absolute Eos (auto) (0-0.6) 10^3/ul Absolute Basos (auto) (0-0.2) 10^3/ul Absolute Nucleated RBC 10^3/ul Nucleated RBC % ESR (0-40) mm/Hr INR (Anticoag Therapy) 0.97 (0.89-1.11) Sodium (133-145) mmol/L Potassium (3.5-5.0) mmol/L Chloride (101-111) mmol/L Carbon Dioxide (22-32) mmol/L Anion Gap (2-11) mmol/L BUN (6-24) mg/dL Creatinine (0.51-0.95) mg/dL Est GFR ( Amer) (>60) Est GFR (Non-Af Amer) (>60) BUN/Creatinine Ratio (8-20) Glucose (70-100) mg/dL Lactic Acid (0.5-2.0) mmol/L Calcium (8.6-10.3) mg/dL Total Bilirubin (0.2-1.0) mg/dL AST (13-39) U/L ALT (7-52) U/L Alkaline Phosphatase (34-104) U/L Troponin I (<0.04) ng/mL Total Protein (6.4-8.9) g/dL Albumin (3.2-5.2) g/dL Globulin (2-4) g/dL Albumin/Globulin Ratio (1-3) TSH (0.34-5.60) mcIU/mL Urine Color Yellow Urine Appearance Clear Urine pH 5.0 (5-9) Ur Specific [place] 1.020 (1.010-1.030) Urine Protein Negative (Negative) Urine Ketones 1+ H (Negative) Urine Blood Negative (Negative) Urine Nitrate Negative (Negative) Urine Bilirubin Negative (Negative) Urine Urobilinogen Negative (Negative) Ur Leukocyte Esterase 1+ H (Negative) Urine WBC (Auto) Trace(0-5/hpf) (Absent) Urine RBC (Auto) Trace(0-2/hpf) (Absent) Ur Squamous Epith Cells Present H (Absent) Urine Bacteria 1+ H (Absent) Hyaline Casts Present H (Absent) Urine Yeast Present H (Absent) Urine Glucose Negative (Negative) Phenytoin (10-20) mcg/mL Result Diagrams: 03/03/17 04:53 03/03/17 04:53 Lab Statement: Any lab studies that have been ordered have been reviewed, and results considered in the medical decision making process. - Radiology CXR Xray Interpretation: No Acute Changes - HYPERINFLATION. NO ACTIVE CARDIOPULMONARY DISEASE. ED physician has reviewed this report and agrees. Radiology Interpretation Completed By: Radiologist - CT CT Brain CT Interpretation: No Acute Changes - 1. NO ACUTE INTRACRANIAL PATHOLOGY. 2. DIFFUSE INVOLUTIONAL CHANGE. 3. CHRONIC SMALL VESSEL ISCHEMIC CHANGES. 4. BILATERAL OTITIS/MASTOIDITIS. ED Physician has reviewed this report and agrees. CT Interpretation Completed By: Radiologist - EKG 15:55 Cardiac Rate: NL EKG Rhythm: Sinus Rhythm EKG Interpretation: 62 BPM. Normal EKG. Course/Dx - Course Course Of Treatment: Ms. Adams presented with right sided weakness and an increased right side facial droop that she awakened with this afternoon. She usually gets up in the AM. it is unclear whether she has had a CVA or not and she is being admitted for further W/U. - Diagnoses Provider Diagnoses: CVA (cerebral vascular accident) - Physician Notifications Discussed Care Of Patient With: Burt Harris Time Discussed With Above Provider: 18:44 Instructed by Provider To: Other - I consulted with Dr. Harris, hospitalist, who will admit the patient. Discharge - Discharge Plan Condition: Fair Disposition: ADMITTED TO [facility] The documentation as recorded by the Monse wilson Thomas accurately reflects the service I personally performed and the decisions made by me, Johnson Hou MD.
--- NOTE | 2017-03-03 16:09 | PN ---
Subjective Date of Service: 03/03/17 Interval History: Patient continued to have facial droop and drooling. Patient states she has been having intermittent vision changes in her left eye, but is unable to describe them and did not remember mentioning this when asked later in the day. Patient is A/Ox2 and somewhat confused. Denies any other complaints such as CP, SOB, N/V, Abdominal Pain, Diarrhea, Constipation, F/C or other pain. Patient worked with PT today and was able to stand by the bed. Family History: Unchanged from Admission Social History: Unchanged from Admission Past Medical History: Unchanged from Admission Objective Active Medications: Acetaminophen (Tylenol Tab*) 650 mg PO Q4H PRN PRN Reason: FEVER/PAIN Last Admin: 03/03/17 06:02 Dose: 650 mg Aspirin (Aspirin Low Dose Tab*) 81 mg PO DAILY [facility] Last Admin: 03/03/17 09:06 Dose: 81 mg Atorvastatin Calcium (Lipitor*) 40 mg PO 1700 [facility] Clonazepam (Klonopin Tab(*)) 1 mg PO BEDTIME PIOTR Clotrimazole (Clotrimazole 1%*) 1 applic TOPICAL BID [facility] Last Admin: 03/03/17 09:07 Dose: 1 applic Heparin Sodium (Porcine) (Heparin Vial(*)) 5,000 units SUBCUT Q8HR [facility] Last Admin: 03/03/17 14:12 Dose: 5,000 units Levofloxacin/Dextrose (Levaquin 750 Mg Ivpremix(*)) 750 mg in 150 mls @ 100 mls /hr IVPB Q24H PIOTR Magnesium Hydroxide (Milk Of Magnesia Liq*) 30 ml PO Q4H PRN PRN Reason: CONSTIPATION Multi-Ingredient Ointment (Hydrocerin*) 1 applic TOPICAL BID [facility] Last Admin: 03/03/17 09:07 Dose: 1 applic Olanzapine (Zyprexa Tab*) 2.5 mg PO BEDTIME PIOTR Ondansetron HCl (Zofran Inj*) 4 mg IV Q6H PRN PRN Reason: NAUSEA/VOMITING Phenytoin Sodium (Dilantin Cap(*)) 100 mg PO BID PIOTR Sertraline HCl (Zoloft*) 100 mg PO 0900 [facility] Vital Signs 03/02/17 03/02/17 03/02/17 20:00 20:13 20:30 Temperature 98.2 F 97.9 F Pulse Rate 78 69 Respiratory 16 16 16 Rate Blood Pressure 146/80 147/80 (mmHg) O2 Sat by Pulse 97 98 Oximetry 03/02/17 03/03/17 03/03/17 23:43 03:42 07:53 Temperature 97.7 F 97.6 F Pulse Rate 65 65 Respiratory 16 16 18 Rate Blood Pressure 138/56 140/56 (mmHg) O2 Sat by Pulse 96 96 Oximetry 03/03/17 03/03/17 09:34 11:09 Temperature 97.6 F 97.1 F Pulse Rate 61 66 Respiratory 16 20 Rate Blood Pressure 134/59 128/54 (mmHg) O2 Sat by Pulse 97 98 Oximetry Oxygen Devices in Use Now: None Appearance: Patient is an 86yo female who appears stated age, has an obvious facial droop and is resting in bed in NAD. Eyes: No Scleral Icterus, PERRLA Ears/Nose/Mouth/Throat: NL Teeth, Lips, Gums, Clear Oropharnyx, Mucous Membranes Moist Neck: NL Appearance and Movements; NL JVP, Trachea Midline Respiratory: Symmetrical Chest Expansion and Respiratory Effort, Clear to Auscultation Cardiovascular: NL Sounds; No Murmurs; No JVD, RRR, No Edema, - Abdominal: NL Sounds; No Tenderness; No Distention, No Hepatosplenomegaly Lymphatic: No Cervical Adenopathy Extremities: No Edema, No Clubbing, Cyanosis, - - Left ankle contracture, unable to dorsiflex ankle. Skin: No Rash or Ulcers, No Nodules or Sclerosis Neurological: - - A/Ox2, Confused. EOMI intact. Visual denny intact by confrontation. Facial droop on right. Wrinkling symmetrical in forehead, unable to open eyes against resistance. Muscles of mastication contract symmetrically. Patient states sensation to light touch intact on B/L face. Tongue protrudes to midline. There is drooping of the right soft palate. 4/5 strength B/L in head rotation and shoulder shrug. 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 4/5 strength in B/L upper extremities distally and proximally. Reflexes 2+ in the bilateral Biceps and quadriceps tendons. Reflex 1+ in right achilles and unable to be assessed in Left achilles. Babinski downgoing B/L. Result Diagrams: 03/03/17 04:53 03/03/17 04:53 Additional Lab and Data: Lab Results 03/02/17 03/02/17 03/02/17 Range/Units 17:44 17:44 17:44 WBC 6.2 (3.5-10.8) 10^3/ul RBC 4.24 (4.0-5.4) 10^6/ul Hgb 12.8 (12.0-16.0) g/dl Hct 40 (35-47) % MCV 93 (80-97) fL MCH 30 (27-31) pg MCHC 33 (31-36) g/dl RDW 15 (10.5-15) % Plt Count 171 (150-450) 10^3/ul MPV 9 (7.4-10.4) um3 Neut % (Auto) 61.2 (38-83) % Lymph % (Auto) 28.4 (25-47) % [place] % (Auto) 9.5 H (1-9) % Eos % (Auto) 0.1 (0-6) % Baso % (Auto) 0.8 (0-2) % Absolute Neuts (auto) 3.8 (1.5-7.7) 10^3/ul Absolute Lymphs (auto) 1.8 (1.0-4.8) 10^3/ul Absolute Monos (auto) 0.6 (0-0.8) 10^3/ul Absolute Eos (auto) 0 (0-0.6) 10^3/ul Absolute Basos (auto) 0 (0-0.2) 10^3/ul Absolute Nucleated RBC 0.01 10^3/ul Nucleated RBC % 0.2 ESR 9 (0-40) mm/Hr INR (Anticoag Therapy) (0.89-1.11) Sodium 142 (133-145) mmol/L Potassium 4.0 (3.5-5.0) mmol/L Chloride 107 (101-111) mmol/L Carbon Dioxide 29 (22-32) mmol/L Anion Gap 6 (2-11) mmol/L BUN 12 (6-24) mg/dL Creatinine 0.62 (0.51-0.95) mg/dL Est GFR ( Amer) 117.9 (>60) Est GFR (Non-Af Amer) 91.7 (>60) BUN/Creatinine Ratio 19.4 (8-20) Glucose 92 (70-100) mg/dL Lactic Acid 0.7 (0.5-2.0) mmol/L Calcium 8.8 (8.6-10.3) mg/dL Total Bilirubin 0.40 (0.2-1.0) mg/dL AST 12 L (13-39) U/L ALT 6 L (7-52) U/L Alkaline Phosphatase 53 (34-104) U/L Troponin I 0.01 (<0.04) ng/mL Total Protein 5.7 L (6.4-8.9) g/dL Albumin 3.7 (3.2-5.2) g/dL Globulin 2.0 (2-4) g/dL Albumin/Globulin Ratio 1.9 (1-3) TSH 0.09 L (0.34-5.60) mcIU/mL Urine Color Urine Appearance Urine pH (5-9) Ur Specific [place] (1.010-1.030) Urine Protein (Negative) Urine Ketones (Negative) Urine Blood (Negative) Urine Nitrate (Negative) Urine Bilirubin (Negative) Urine Urobilinogen (Negative) Ur Leukocyte Esterase (Negative) Urine WBC (Auto) (Absent) Urine RBC (Auto) (Absent) Ur Squamous Epith Cells (Absent) Urine Bacteria (Absent) Hyaline Casts (Absent) Urine Yeast (Absent) Urine Glucose (Negative) Phenytoin 17.0 (10-20) mcg/mL 03/02/17 03/02/17 Range/Units 17:44 17:44 WBC (3.5-10.8) 10^3/ul RBC (4.0-5.4) 10^6/ul Hgb (12.0-16.0) g/dl Hct (35-47) % MCV (80-97) fL MCH (27-31) pg MCHC (31-36) g/dl RDW (10.5-15) % Plt Count (150-450) 10^3/ul MPV (7.4-10.4) um3 Neut % (Auto) (38-83) % Lymph % (Auto) (25-47) % [place] % (Auto) (1-9) % Eos % (Auto) (0-6) % Baso % (Auto) (0-2) % Absolute Neuts (auto) (1.5-7.7) 10^3/ul Absolute Lymphs (auto) (1.0-4.8) 10^3/ul Absolute Monos (auto) (0-0.8) 10^3/ul Absolute Eos (auto) (0-0.6) 10^3/ul Absolute Basos (auto) (0-0.2) 10^3/ul Absolute Nucleated RBC 10^3/ul Nucleated RBC % ESR (0-40) mm/Hr INR (Anticoag Therapy) 0.97 (0.89-1.11) Sodium (133-145) mmol/L Potassium (3.5-5.0) mmol/L Chloride (101-111) mmol/L Carbon Dioxide (22-32) mmol/L Anion Gap (2-11) mmol/L BUN (6-24) mg/dL Creatinine (0.51-0.95) mg/dL Est GFR ( Amer) (>60) Est GFR (Non-Af Amer) (>60) BUN/Creatinine Ratio (8-20) Glucose (70-100) mg/dL Lactic Acid (0.5-2.0) mmol/L Calcium (8.6-10.3) mg/dL Total Bilirubin (0.2-1.0) mg/dL AST (13-39) U/L ALT (7-52) U/L Alkaline Phosphatase (34-104) U/L Troponin I (<0.04) ng/mL Total Protein (6.4-8.9) g/dL Albumin (3.2-5.2) g/dL Globulin (2-4) g/dL Albumin/Globulin Ratio (1-3) TSH (0.34-5.60) mcIU/mL Urine Color Yellow Urine Appearance Clear Urine pH 5.0 (5-9) Ur Specific [place] 1.020 (1.010-1.030) Urine Protein Negative (Negative) Urine Ketones 1+ H (Negative) Urine Blood Negative (Negative) Urine Nitrate Negative (Negative) Urine Bilirubin Negative (Negative) Urine Urobilinogen Negative (Negative) Ur Leukocyte Esterase 1+ H (Negative) Urine WBC (Auto) Trace(0-5/hpf) (Absent) Urine RBC (Auto) Trace(0-2/hpf) (Absent) Ur Squamous Epith Cells Present H (Absent) Urine Bacteria 1+ H (Absent) Hyaline Casts Present H (Absent) Urine Yeast Present H (Absent) Urine Glucose Negative (Negative) Phenytoin (10-20) mcg/mL Assess/Plan/Problems-Billing Assessment: Patient is an 86yo female with a PMH significant for HTN, OA, B12 deficiency, OA , chronic pain, depression, psychogenic weakness, and decubitus ulcer who presents with altered mental status and right sided facial droop who was not a candidate for tPa and was found to have a subacute infarction on brain CT. - Patient Problems (1) CVA (cerebral vascular accident) Current Visit: Yes Status: Acute Code(s): I63.9 - CEREBRAL INFARCTION, UNSPECIFIED SNOMED Code(s): 050877600 Comment: Patient presented with facial weakness and slurred speech. Appreciate neurology consult. Patient was found to have subacute infarct on CT scan with review by Neurologist. Patient has weakness, but has previous history of psychogenic weakness and is deconditioned to an unknown degree related to this. Started on ASA and Atorvastatin. MRI, Carotid Doppler, and TTE with bubble study pending. Continue Neuro checks. (2) HTN (hypertension) Current Visit: Yes Status: Acute Code(s): I10 - ESSENTIAL (PRIMARY) HYPERTENSION SNOMED Code(s): 28632406 Comment: On no medications, now high end of normotensive. Slightly hypertensive on presentation. No treatment at this time due to CVA. (3) Depression Current Visit: Yes Status: Acute Code(s): F32.9 - MAJOR DEPRESSIVE DISORDER , SINGLE EPISODE, UNSPECIFIED SNOMED Code(s): 38440622 Comment: Continue sertraline and Zyprexa. Patient currently pleasent and euthymic. (4) Mastoiditis Current Visit: Yes Status: Acute Code(s): H70.90 - UNSPECIFIED MASTOIDITIS, UNSPECIFIED EAR SNOMED Code(s): 16690786 Comment: Mastoiditis on CT scan. Tenderness over right mastoid process. No leukocytosis or fever. Patient on Levaquin for this and possible UTI. Consider discontinuing pending urine culture. Not likely cause of symptoms. (5) Seizure disorder Current Visit: No Status: Acute Code(s): G40.909 - EPILEPSY, UNSP, NOT INTRACTABLE, WITHOUT STATUS EPILEPTICUS SNOMED Code(s): 695950237 Comment: Continue phenytoin. Patient unable to state when her last seizure was. Level therapeutic at 17, will recheck in morning. (6) Hyperlipidemia Current Visit: Yes Status: Acute Code(s): E78.5 - HYPERLIPIDEMIA, UNSPECIFIED SNOMED Code(s): 36403291 Comment: Lipid panel shows elevated LDL cholesterol, started on atorvastatin for secondary prevention of CVA. (7) DNR (do not resuscitate) Current Visit: Yes Status: Acute (8) DVT prophylaxis Current Visit: Yes Status: Acute Code(s): ZVO0445 - SNOMED Code(s): 184244434 Comment: Heparin Subcutaneous. Status and Disposition: Patient is admitted inpatient with CVA. Will work with PT/OT. May need JENNIFER or more help at home.
[2017-03-03] MEDS: Atorvastatin* 40 MG TAB PO SCH (16:53)
[2017-03-03] MEDS: Levofloxacin 750 MG IVPREMIX(* 750 MG/150 ML BAG IVPB SCH (16:53)
[2017-03-03] MEDS: clonazePAM TAB(*) 1 MG PO SCH ×2 (16:53→20:21)
--- NOTE | 2017-03-03 19:39 | RAD ---
INDICATION: Carotid stenosis COMPARISON: March 04, 2008 TECHNIQUE: Transverse and longitudinal scans of the carotid and vertebral arteries were performed with fowler scale, color Doppler, and spectral Doppler imaging. Stenosis criteria is based on flow velocities that correlate with visual internal carotid artery diameter (NASCET criteria). The examination is mildly limited due to patient immobility. FINDINGS: Right carotid: There is mild calcific plaque involving the bifurcation. There is no spectral broadening. The peak systolic velocity of the internal carotid artery is 104 cm/s and the peak diastolic velocity 11 cm/s. The ICA/CCA ratio is calculated at 1.1. This corresponds to a less than 50% diameter stenosis. Left carotid: There is mild calcific plaque involving the bifurcation. There is no spectral broadening. The peak systolic velocity of the internal carotid artery is 53 cm/s and the peak diastolic velocity 8 cm/s. The ICA/CCA ratio is calculated at 0.6. This corresponds to a less than 50% diameter stenosis. Right vertebral: Right vertebral waveforms are normal and the flow is antegrade. Left vertebral: Left vertebral waveforms are normal and the flow is antegrade. IMPRESSION: NO EVIDENCE OF A HEMODYNAMICALLY SIGNIFICANT STENOSIS CPT II Codes: 3100F [facility]
[2017-03-03] MEDS: OLANzapine TAB* 2.5 MG PO SCH (20:22)
[2017-03-03] MEDS: Phenytoin CAP(*) 100 MG CAP.ER PO SCH (20:23)
[2017-03-03] MEDS ORDERED: clonazePAM TAB(*) 1 MG PO SCH (21:00)
--- NOTE | 2017-03-03 22:42 | CONS ---
CC: Eli Zazueta MD * NEUROLOGY CONSULTATION: DATE OF CONSULTATION: 03/03/17 LOCATION: She is an inpatient in room 434. REFERRING PROVIDER: Amber Tee NP CHIEF COMPLAINT: Slurred speech, facial weakness. HISTORY OF PRESENT ILLNESS: Rica Adams is an 86-year-old right-handed woman who presented to the hospital yesterday when she slept much longer than usual and when her family roused her in the early afternoon, she had slurred speech and right facial weakness. She presented to the emergency room where she continued with slurred speech and right facial weakness and from some exams , apparently she might have some right-sided arm weakness as well. She is chronically nonambulatory and I saw her back in May 2015 with increased leg weakness. She has a history of psychogenic weakness going back decades and had a urinary tract infection at that point in time, which was treated and her leg weakness improved such that she was able to be discharged. There is no history of stroke in the past. 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 Yesterday, her phenytoin level was 17. Currently, she is awake and realizes that her speech is not normal. She is not aware of any extremity weakness. She does not have any headache or change in vision. PAST MEDICAL HISTORY: Notable for paranoia, depression, psychiatric admissions for the same, chronic back pain, lumbar stenosis, bilateral knee replacements, nephrolithiasis, ongoing sacral decubitus ulcer, potential seizure disorder as described above, hypertension. MEDICATIONS: At home consist of: 1. Phenytoin 100 mg p.o. b.i.d. 2. Zyprexa 2.5 mg q.h.s. 3. Sertraline 100 mg p.o. daily. 4. Clonazepam 1 mg q.h.s. ALLERGIES: She is said to be allergic to PENICILLIN, AMBIEN, OXYCODONE. SOCIAL HISTORY: She lives at home with her son who is handicapped. She does not smoke and she does not drink alcohol. REVIEW OF SYSTEMS: Negative for headaches, change in vision, numbness in the limbs, neck pain. I do not believe she ambulates at all at this point in time, but I am not entirely sure. She denies shortness of breath or chest pain currently. No recent falls, but again I do not think she ambulates. She has no significant fevers or sweats or chills. No abdominal pain. PHYSICAL EXAMINATION: She has been afebrile, most recently 97.1 axillary. Blood pressure 128/54, heart rate 66 and regular, respiratory rate is about 20, and oxygen saturation is 98% on room air. Heart is in a regular rate and rhythm and I do not hear murmurs. Carotid pulses are weakly felt and I do not hear any bruits. Oral mucosa is moist and atraumatic. Head is atraumatic. She has bilateral ankle contractures. She has dystonic posturing of the right hand. Neurological Exam: Pupils react equally from 3.5 to 2.5 mm. Eye movements are full. Visual denny are questionable, missing things in her left visual field to double simultaneous stimulation. Facial musculature is notable for central pattern right facial weakness. Speech is dysarthric. Tongue protrudes to the right. Palate deviates to the left on phonation. Facial sensation is diminished to light touch on the right side. She has lessened antigravity strength in both legs and a fairly normal tone. She has dystonic posturing of the right hand and a rest tremor in the right hand. There is increased tone in the right hand relative to the left, but I do not detect cogwheeling or spastic catch. She has diminished light touch in the right hand relative to the left. She is areflexic. Both upper extremities move slowly, but have antigravity strength and are symmetric without drift. Language is fluent. Memory is questionable. LABORATORY DATA/DIAGNOSTIC STUDIES: Includes a CT of the brain, which I reviewed and which reveals low density bilaterally but loss of fowler white matter differentiation in the left caudate and insula specifically. Comparing it to the CT scan from 2016, that is a new finding. EKG is in sinus rhythm. Laboratory studies notable for a normal CBC, sedimentation rate 9, urinalysis with 1+ ketones and 1+ leukocyte esterase. Chemistry profile is fairly unremarkable other than a TSH of 0.09. Cholesterol this morning 209, LDL 139. Phenytoin level 17 yesterday at admission. IMPRESSION: Left hemisphere stroke. She is now appropriately on aspirin. Transthoracic echocardiogram, carotid ultrasound, and an MRI of the brain have been ordered, all of which I agree with. She has been started on ASA, which I also agree with. Further recommendations will depend up on her clinical course and results of her studies. [id number]/[facility] #: [id number] MTDD
[2017-03-04] MEDS: Heparin VIAL(*) 5000 UNITS/ML VIAL (FIVE THOUSAND) SUBCUT SCH ×3 (05:25→21:35)
[2017-03-04 05:43] LABS: Hematocrit 35 % (35-47); Hemoglobin 11.5 g/dl (12.0-16.0); Mean Corpuscular HGB Conc 33 g/dl (31-36); Mean Corpuscular Hemoglobin 31 pg (27-31); Mean Corpuscular Volume 92 fL (80-97); Mean Platelet Volume 9 um3 (7.4-10.4); Red Blood Count 3.77 10^6/ul (4.0-5.4); Red Cell Distribution Width 15 % (10.5-15)
[2017-03-04] MEDS: Sertraline* 100 MG TAB PO SCH (08:39)
[2017-03-04] MEDS: Phenytoin CAP(*) 100 MG CAP.ER PO SCH ×2 (08:40→20:33)
[2017-03-04] MEDS: Aspirin Low Dose CHEW TAB* 81 MG PO SCH (08:40)
[2017-03-04] MEDS: Clotrimazole 1% CREAM* 45 GM TOPICAL SCH ×2 (08:41→20:36)
[2017-03-04] MEDS: Moisturizing CREAM* 113 GM JAR TOPICAL SCH ×2 (08:45→20:36)
--- NOTE | 2017-03-04 09:18 | ECHO ---
Patient: LELA KELLY [facility] Rec#: [id number] : 1930 Date: 03/04/2017 Age: 86y Height: 162.56 cm / 64.0 in Weight: 63.5 kg / 140.0 lbs Sex: F BSA: 1.68 Room#: 434 Admit Date#: 03/02/2017 Type: Inpatient Referring: Amber Tee Reading: Luiz Antunez MD [employer] Worker: Alessandra Le,IDRISCS,RDMS CC: Eli Zazueta MD Transthoracic Echocardiogram Indication: CVA BP: 113/51 HR: 83 Rhythm: NSR Findings History: HTN, seizures Technical Comments: The study quality is good. Left Ventricle: The left ventricular chamber size is normal. Mild concentric left ventricular hypertrophy is observed. Global left ventricular wall motion and contractility are within normal limits. There is normal left ventricular systolic function. The estimated ejection fraction is 55-60%. Abnormal left ventricular diastolic filling is observed, consistent with impaired relaxation. Left Atrium: The left atrium is mildly dilated. Right Ventricle: The right ventricular chamber size and systolic function are within normal limits. The right ventricle wall thickness is mildly increased. Right Atrium: The right atrial cavity size is normal. The bubble study is negative. A patent foramen ovale is not demonstrated with color Doppler and agitated contrast. Aortic Valve: The aortic valve leaflets are mildly thickened. There is a trace of aortic regurgitation. There is no evidence of aortic stenosis. Mitral Valve: Mild mitral annular calcification present. The mitral valve leaflets are mildly thickened. There is trace to mild mitral regurgitation. There is no evidence of mitral stenosis. Tricuspid Valve: The tricuspid valve leaflets are normal. There is mild tricuspid regurgitation. There is evidence of mild pulmonary hypertension. Pulmonic Valve: The pulmonic valve structure is not well visualized. There is a trace pulmonic regurgitation. Pericardium: There is no significant pericardial effusion. Aorta: The ascending aorta is not well visualized. There is no dilatation of the aortic arch. The aortic root is normal in size. Pulmonary Artery: The main pulmonary artery is not well visualized. Venous: The inferior vena cava appears normal. There is a greater than 50% respiratory change in the inferior vena cava dimension. Contrast: Intravenous agitated saline contrast was used to assess intracardiac shunting. Summary: There was not any prior study for comparison. Conclusions Mild concentric left ventricular hypertrophy is observed. Global left ventricular wall motion and contractility are within normal limits. There is normal left ventricular systolic function. The estimated ejection fraction is 55-60%. The bubble study is negative. A patent foramen ovale is not demonstrated with color Doppler and agitated contrast. There is a trace of aortic regurgitation. There is trace to mild mitral regurgitation. There is mild tricuspid regurgitation. There is no significant pericardial effusion. Measurements Name Value Normal Range RVDdMajor (2D) 3.1 cm (2.2 - 4.4) RAd ISD 4CH 4.6 cm (3.4 - 4.9) RA (A4C)W 3.5 cm (2.9 - 4.6) IVSd (2D) 1.2 cm (0.6 - 1) LVPWd (2D) 1.2 cm (0.6 - 1) LVIDd (2D) 3.8 cm (3.6 - 5.4) LVIDs (2D) 2.2 cm - LV FS (2D) 42 % (25 - 45) Aortic Annulus 2 cm (1.4 - 2.6) Ao root diameter (2D) 2.6 cm (2.1 - 3.5) Aortic arch 2.2 cm (1.8 - 3.4) LA dimension (AP) 2D 3 cm (2.3 - 3.8) LAd ISD 4CH 5.9 cm (2.9 - 5.3) LA ISD 4CH W 4 cm (2.5 - 4.5) Name Value Normal Range LA ESV SP 4CH (A/L) 62.71 ml - LA ESV SP 2CH (A/L) 62.51 ml - LA ESV BP (A/L) 65.93 ml - LA ESV BP (A/L) index 39 ml/m2 - LA ESV SP 4CH (MOD) 57.05 ml - LA ESV SP 2CH (MOD) 54.71 ml - Name Value Normal Range MV E-wave Vmax 0.8 m/sec - MV deceleration time 178 msec - MV A-wave Vmax 0.9 m/sec - MV E:A ratio 0.9 ratio - P. vein S-wave Vmax 0.5 m/sec - P. vein D-wave Vmax 0.4 m/sec - P. vein S:D Vmax ratio 1.3 ratio - P. vein A-wave duration 122 msec - LV septal e' Vmax 0.08 m/sec - LV lateral e' Vmax 0.09 m/sec - LV E:e' septal ratio 10 ratio - LV E:e' lateral ratio 9 ratio - Name Value Normal Range AV Vmax 1.2 m/sec - AV VTI 26 cm - AV peak gradient 6 mmHg - AV mean gradient 2.3 mmHg - LVOT Vmax 0.9 m/sec - LVOT VTI 23 cm - LVOT peak gradient 3.2 mmHg - LVOT mean gradient 1.6 mmHg - SARABJIT Vmax 0.6 m/sec - Name Value Normal Range TR Vmax 2.9 m/sec - TR peak gradient 34 mmHg - RAP 3 mmHg - RVSP 37 mmHg - IVC diameter 1.5 cm - Name Value Normal Range PV Vmax 0.7 m/sec - PV peak gradient 2 mmHg -
[2017-03-04] MEDS: Acetaminophen TAB* 325 MG PO PRN ×2 (10:04→17:41)
[2017-03-04 10:36] LABS: BUN/Creatinine Ratio 13.3 (8-20); Calcium 8.8 mg/dL (8.6-10.3); EGFR African American 122.5 (>60); EGFR Non-African American 95.2 (>60); Potassium 3.7 mmol/L (3.5-5.0)
[2017-03-04] MEDS: clonazePAM TAB(*) 1 MG PO PRN ×2 (10:52→19:16)
--- NOTE | 2017-03-04 12:10 | RAD ---
HISTORY: Right facial droop COMPARISONS: Head CT dated March 02, 2017 TECHNIQUE: The following sequences were obtained of the head: Sagittal T1-weighted images, axial T2-weighted images, axial FLAIR images, axial susceptibility weighted images, axial T1-weighted images. Additionally, axial diffusion-weighted images were obtained with calculated apparent diffusion coefficients. FINDINGS: HEMORRHAGE/INFARCT: There is restricted diffusion consistent with a subacute nonhemorrhagic infarct of the left basal ganglia measuring approximately 2.1 cm in size. Elsewhere, there is no hemorrhage or acute infarct. MASSES/SHIFT: There is no mass or shift. EXTRA-AXIAL SPACES/MENINGES: There are no extra-axial fluid collections. SULCI AND VENTRICLES: There is diffuse and proportional enlargement of the sulci and ventricles. CEREBRUM: There is multifocal elevated T2/FLAIR signal in the periventricular and subcortical white matter. There is elevated T2/FLAIR signal corresponding to the area of restricted diffusion of the left basal ganglia. BRAINSTEM: There is elevated T2/FLAIR signal within the pontine white matter. CEREBELLUM: There are no focal parenchymal abnormalities. The cerebellar tonsils are normal in size and position. SELLA: The sella is normal. PINEAL: The pineal region is clear. CP ANGLE/TEMPORAL BONES: The labyrinthine structures are grossly normal. VESSELS: Normal flow-voids are noted within the visualized vertebral vasculature. DIFFUSION ABNORMALITIES: As noted above, there is restricted diffusion within the left basal ganglia PARANASAL SINUSES/MASTOIDS: There are large bilateral mastoid effusions. ORBITS: The orbits are unremarkable. BONES AND SOFT TISSUE: No bone or soft tissue abnormalities are noted. OTHER: None IMPRESSION: 1. RESTRICTED DIFFUSION CONSISTENT WITH SUBACUTE NONHEMORRHAGIC INFARCT OF THE LEFT BASAL GANGLIA. 2. DIFFUSE INVOLUTIONAL CHANGE WITH CHRONIC SMALL VESSEL ISCHEMIC CHANGES. 3. LARGE BILATERAL MASTOID EFFUSIONS
--- NOTE | 2017-03-04 14:49 | PN ---
Subjective Date of Service: 03/04/17 Interval History: Patient has no acute complaints overnight except for a mild frontal headache. Patient denies changes in vision, dizziness, nausea, vomiting, chest pain, SOB, Abdominal Pain, F/C, Dysuria, constipation, or diarrhea. Patient stated in the morning she would be willing to go to [facility] with the goal of returning her home. She later changed her mind when talking to the home day care provider. Patient states she had a bad experience at [facility] and would not like to go there. Patient is concerned about her son at home who has developmental delay. Family History: Unchanged from Admission Social History: Unchanged from Admission Past Medical History: Unchanged from Admission Objective Active Medications: Acetaminophen (Tylenol Tab*) 650 mg PO Q4H PRN PRN Reason: FEVER/PAIN Last Admin: 03/04/17 10:04 Dose: 650 mg Aspirin (Aspirin Low Dose Tab*) 81 mg PO DAILY [facility] Last Admin: 03/04/17 08:40 Dose: 81 mg Atorvastatin Calcium (Lipitor*) 40 mg PO 1700 [facility] Last Admin: 03/03/17 16:53 Dose: 40 mg Clonazepam (Klonopin Tab(*)) 1 mg PO BID PRN PRN Reason: ANXIETY Last Admin: 03/04/17 10:52 Dose: 1 mg Clotrimazole (Clotrimazole 1%*) 1 applic TOPICAL BID [facility] Last Admin: 03/04/17 08:41 Dose: 1 applic Folic Acid (Folvite Tab*) 1 mg PO DAILY [facility] Heparin Sodium (Porcine) (Heparin Vial(*)) 5,000 units SUBCUT Q8HR [facility] Last Admin: 03/04/17 14:18 Dose: 5,000 units Levofloxacin/Dextrose (Levaquin 750 Mg Ivpremix(*)) 750 mg in 150 mls @ 100 mls /hr IVPB Q24H [facility] Last Admin: 03/03/17 16:53 Dose: 100 mls/hr Magnesium Hydroxide (Milk Of Magnesia Liq*) 30 ml PO Q4H PRN PRN Reason: CONSTIPATION Multi-Ingredient Ointment (Hydrocerin*) 1 applic TOPICAL BID [facility] Last Admin: 03/04/17 08:45 Dose: 1 applic Olanzapine (Zyprexa Tab*) 2.5 mg PO BEDTIME [facility] Last Admin: 03/03/17 20:22 Dose: 2.5 mg Ondansetron HCl (Zofran Inj*) 4 mg IV Q6H PRN PRN Reason: NAUSEA/VOMITING Phenytoin Sodium (Dilantin Cap(*)) 100 mg PO BID [facility] Last Admin: 03/04/17 08:40 Dose: 100 mg Sertraline HCl (Zoloft*) 100 mg PO 0900 [facility] Last Admin: 03/04/17 08:39 Dose: 100 mg Vital Signs 03/03/17 03/03/17 03/03/17 15:18 16:53 18:46 Temperature 97.7 F Pulse Rate 69 Respiratory 16 16 16 Rate Blood Pressure 145/60 (mmHg) O2 Sat by Pulse 98 Oximetry 03/03/17 03/03/17 03/03/17 19:38 20:00 20:21 Temperature 97.5 F Pulse Rate 64 Respiratory 14 14 16 Rate Blood Pressure 118/51 (mmHg) O2 Sat by Pulse 97 Oximetry 03/03/17 03/04/17 03/04/17 23:36 03:56 07:30 Temperature 98.2 F 97.5 F 97.4 F Pulse Rate 63 58 59 Respiratory 16 16 20 Rate Blood Pressure 114/55 113/51 114/56 (mmHg) O2 Sat by Pulse 96 95 95 Oximetry 03/04/17 03/04/17 03/04/17 08:00 10:52 13:00 Temperature Pulse Rate Respiratory 18 20 18 Rate Blood Pressure (mmHg) O2 Sat by Pulse Oximetry Oxygen Devices in Use Now: None Appearance: Patient is a 86yo female with an obvious facial droop who appears stated age and is sitting in the bed in [facility]. Eyes: No Scleral Icterus, PERRLA Ears/Nose/Mouth/Throat: NL Teeth, Lips, Gums, Clear Oropharnyx, Mucous Membranes Moist, - - Significant cerumen in both ears obstructing the tympanic membranes. No pain with palpation over the bilateral mastoid processes. Neck: NL Appearance and Movements; NL JVP, Trachea Midline Respiratory: Symmetrical Chest Expansion and Respiratory Effort, Clear to Auscultation Cardiovascular: NL Sounds; No Murmurs; No JVD, RRR, No Edema Abdominal: NL Sounds; No Tenderness; No Distention, No Hepatosplenomegaly Lymphatic: No Cervical Adenopathy Extremities: No Edema, No Clubbing, Cyanosis, - - Left ankle contracted in plantar flexion. Skin: No Rash or Ulcers, No Nodules or Sclerosis Neurological: Alert and Oriented x 3, - - EOMI intact. Visual denny intact to confrontation. Tongue deviates slightly to the right. Significant facial droop with drooling on right. CN II-XII otherwise normal. Diffusely weak without focality. No other changes in neuro exam from yesterday. Result Diagrams: 03/04/17 05:34 03/04/17 09:52 Additional Lab and Data: Lab Results Assess/Plan/Problems-Billing Assessment: Patient is an 86yo female with a PMH significant for HTN, OA, B12 deficiency, OA , chronic pain, depression, psychogenic weakness, and decubitus ulcer who presents with altered mental status and right sided facial droop who was not a candidate for tPa and was found to have a subacute infarction on brain CT and MRI. - Patient Problems (1) CVA (cerebral vascular accident) Current Visit: Yes Status: Acute Code(s): I63.9 - CEREBRAL INFARCTION, UNSPECIFIED SNOMED Code(s): 377993459 Comment: Patient presented with facial weakness and slurred speech. Appreciate neurology consult. Patient was found to have subacute infarct on CT scan and confrimed on MRI. Patient has weakness, but has previous history of psychogenic weakness and is deconditioned to an unknown degree related to this. Started on ASA and Atorvastatin. Continue Neuro checks. Echo and carotid doppler non-contributory. (2) HTN (hypertension) Current Visit: Yes Status: Acute Code(s): I10 - ESSENTIAL (PRIMARY) HYPERTENSION SNOMED Code(s): 11711727 Comment: On no medications, now high end of normotensive. Slightly hypertensive on presentation. No treatment at this time due to CVA. (3) Depression Current Visit: Yes Status: Acute Code(s): F32.9 - MAJOR DEPRESSIVE DISORDER , SINGLE EPISODE, UNSPECIFIED SNOMED Code(s): 44791839 Comment: Continue sertraline and Zyprexa. Patient currently pleasent and euthymic. (4) Mastoiditis Current Visit: Yes Status: Acute Code(s): H70.90 - UNSPECIFIED MASTOIDITIS, UNSPECIFIED EAR SNOMED Code(s): 17311207 Comment: Mastoiditis on CT scan. No tenderness over right mastoid processes today. No leukocytosis or fever. Patient on Levaquin for this. (5) Seizure disorder Current Visit: No Status: Acute Code(s): G40.909 - EPILEPSY, UNSP, NOT INTRACTABLE, WITHOUT STATUS EPILEPTICUS SNOMED Code(s): 742476854 Comment: Continue phenytoin. Patient unable to state when her last seizure was. Level therapeutic at 17, will recheck in morning. (6) Hyperlipidemia Current Visit: Yes Status: Acute Code(s): E78.5 - HYPERLIPIDEMIA, UNSPECIFIED SNOMED Code(s): 32488126 Comment: Lipid panel shows elevated LDL cholesterol, started on atorvastatin for secondary prevention of CVA. (7) Low folate Current Visit: Yes Status: Acute Code(s): E53.8 - DEFICIENCY OF OTHER SPECIFIED B GROUP VITAMINS SNOMED Code(s): 716452046 Comment: Will replace (8) DNR (do not resuscitate) Current Visit: Yes Status: Acute (9) DVT prophylaxis Current Visit: Yes Status: Acute Code(s): RVN0711 - SNOMED Code(s): 047117636 Comment: Heparin Subcutaneous. Status and Disposition: Patient is admitted inpatient with CVA. Will work with PT/OT. May need JENNIFER or more help at home if willing. Patient non-ambulatory at baseline.
[2017-03-04] MEDS: Folic Acid TAB* 1 MG PO SCH (15:55)
[2017-03-04] MEDS: Atorvastatin* 40 MG TAB PO SCH (15:55)
[2017-03-04] MEDS: Levofloxacin 750 MG IVPREMIX(* 750 MG/150 ML BAG IVPB SCH (15:55)
--- NOTE | 2017-03-04 18:53 | CONS ---
NEUROLOGY FOLLOWUP NOTE: DATE OF FOLLOWUP: 03/04/17 HOSPITALIST: GASTON Dickey LOCATION: She is an outpatient, room 434. CHIEF COMPLAINT: Right-sided weakness. HISTORY: Since yesterday, Ms. Adams had an MRI of the brain, which confirmed the subcortical left hemisphere infarction in the lenticulostriate distribution. Carotid ultrasound revealed some atheromatous changes, but no significant stenosis. A transthoracic echocardiogram did not reveal an embolic source and she has remained in sinus rhythm. MEDICATIONS: Include: 1. Aspirin 81 mg p.o. q. day. 2. Sertraline 100 p.o. q. day. 3. Phenytoin 100 mg p.o. b.i.d. 4. Olanzapine 2.5 mg p.o. q.h.s. 5. Atorvastatin 40 mg p.o. q. day. 6. Subcutaneous heparin 5000 units q.8 hours. IMPRESSION AND PLAN: Ms. Adams was not examined today. I believe her workup is complete. I agree with the addition of aspirin and atorvastatin. Her blood pressure is under good control and she does not have diabetes. I spoke with GASTON Dickey, and at this point consideration towards possible transfer for rehab or placement is being discussed. [id number]/[facility] #: [id number] MTDLaquita
[2017-03-04] MEDS: OLANzapine TAB* 2.5 MG PO SCH (20:33)
[2017-03-05 05:12] LABS: Mean Corpuscular Hemoglobin 31 pg (27-31); Mean Platelet Volume 9 um3 (7.4-10.4); Red Cell Distribution Width 15 % (10.5-15)
[2017-03-05] MEDS: Heparin VIAL(*) 5000 UNITS/ML VIAL (FIVE THOUSAND) SUBCUT SCH ×3 (05:17→21:19)
[2017-03-05 05:32] LABS: Hematocrit 37 % (35-47); Hemoglobin 12.2 g/dl (12.0-16.0); Mean Corpuscular HGB Conc 33 g/dl (31-36); Mean Corpuscular Volume 93 fL (80-97); Red Blood Count 3.97 10^6/ul (4.0-5.4); White Blood Count 3.6 10^3/ul (3.5-10.8)
[2017-03-05] MEDS: Phenytoin CAP(*) 100 MG CAP.ER PO SCH ×2 (08:04→21:19)
[2017-03-05] MEDS: Folic Acid TAB* 1 MG PO SCH (08:04)
[2017-03-05] MEDS: Aspirin Low Dose CHEW TAB* 81 MG PO SCH (08:04)
[2017-03-05] MEDS: Sertraline* 100 MG TAB PO SCH (08:04)
[2017-03-05] MEDS: Moisturizing CREAM* 113 GM JAR TOPICAL SCH ×2 (08:05→21:21)
[2017-03-05] MEDS: Clotrimazole 1% CREAM* 45 GM TOPICAL SCH ×2 (08:05→21:21)
[2017-03-05] MEDS: Acetaminophen TAB* 325 MG PO PRN ×2 (09:47→19:27)
[2017-03-05] MEDS: clonazePAM TAB(*) 1 MG PO PRN ×2 (09:48→19:28)
--- NOTE | 2017-03-05 16:04 | PN ---
Subjective Date of Service: 03/05/17 Interval History: Patient is much more subdued and difficult to understand today. Patient had just woken up when examined and was A/Ox3 which is consistent with previous days. Patient was amenable to being sent to a facility for short term rehab at this point. This was echoed by the POA on the phone. Patient has increased help at home that will be available in approximately 2 weeks and they are in agreement that she would benefit from rehab to help her regain some functional capacity. Patient complains of a headache but has no other acute complaints. Family History: Unchanged from Admission Social History: Unchanged from Admission Past Medical History: Unchanged from Admission Objective Active Medications: Acetaminophen (Tylenol Tab*) 650 mg PO Q4H PRN PRN Reason: FEVER/PAIN Last Admin: 03/05/17 09:47 Dose: 650 mg Aspirin (Aspirin Low Dose Tab*) 81 mg PO DAILY [facility] Last Admin: 03/05/17 08:04 Dose: 81 mg Atorvastatin Calcium (Lipitor*) 40 mg PO 1700 [facility] Last Admin: 03/04/17 15:55 Dose: 40 mg Clonazepam (Klonopin Tab(*)) 1 mg PO BID PRN PRN Reason: ANXIETY Last Admin: 03/05/17 09:48 Dose: 1 mg Clotrimazole (Clotrimazole 1%*) 1 applic TOPICAL BID [facility] Last Admin: 03/05/17 08:05 Dose: 1 applic Folic Acid (Folvite Tab*) 1 mg PO DAILY [facility] Last Admin: 03/05/17 08:04 Dose: 1 mg Heparin Sodium (Porcine) (Heparin Vial(*)) 5,000 units SUBCUT Q8HR [facility] Last Admin: 03/05/17 13:27 Dose: 5,000 units Levofloxacin/Dextrose (Levaquin 750 Mg Ivpremix(*)) 750 mg in 150 mls @ 100 mls /hr IVPB Q24H [facility] Last Admin: 03/04/17 15:55 Dose: 100 mls/hr Magnesium Hydroxide (Milk Of Magnesia Liq*) 30 ml PO Q4H PRN PRN Reason: CONSTIPATION Multi-Ingredient Ointment (Hydrocerin*) 1 applic TOPICAL BID [facility] Last Admin: 03/05/17 08:05 Dose: 1 applic Olanzapine (Zyprexa Tab*) 2.5 mg PO BEDTIME [facility] Last Admin: 03/04/17 20:33 Dose: 2.5 mg Ondansetron HCl (Zofran Inj*) 4 mg IV Q6H PRN PRN Reason: NAUSEA/VOMITING Phenytoin Sodium (Dilantin Cap(*)) 100 mg PO BID [facility] Last Admin: 03/05/17 08:04 Dose: 100 mg Sertraline HCl (Zoloft*) 100 mg PO 0900 [facility] Last Admin: 03/05/17 08:04 Dose: 100 mg Vital Signs 03/04/17 03/04/17 03/04/17 19:16 19:48 20:00 Temperature 98.6 F Pulse Rate 65 Respiratory 14 14 14 Rate Blood Pressure 113/51 (mmHg) O2 Sat by Pulse 97 Oximetry 03/04/17 03/04/17 03/05/17 21:33 23:49 03:42 Temperature 97.4 F 97.3 F Pulse Rate 60 60 Respiratory 14 16 16 Rate Blood Pressure 112/52 96/46 (mmHg) O2 Sat by Pulse 97 96 Oximetry 03/05/17 03/05/17 03/05/17 07:33 08:00 09:48 Temperature 95.8 F Pulse Rate 57 Respiratory 16 18 16 Rate Blood Pressure 125/50 (mmHg) O2 Sat by Pulse 97 Oximetry 03/05/17 03/05/17 03/05/17 11:14 12:27 15:40 Temperature 97.4 F 98.5 F Pulse Rate 68 66 Respiratory 18 18 16 Rate Blood Pressure 102/44 117/46 (mmHg) O2 Sat by Pulse 97 97 Oximetry Oxygen Devices in Use Now: None Appearance: Patient is an 86yo female who appears stated age, has a obvious right sided facial droop, and is sitting in the bed in NAD. Eyes: No Scleral Icterus, PERRLA Ears/Nose/Mouth/Throat: NL Teeth, Lips, Gums, Clear Oropharnyx, Mucous Membranes Moist, - - Slight amount of retained food in pharynx. Neck: NL Appearance and Movements; NL JVP, Trachea Midline Respiratory: Symmetrical Chest Expansion and Respiratory Effort, Clear to Auscultation Cardiovascular: NL Sounds; No Murmurs; No JVD, RRR, No Edema Abdominal: NL Sounds; No Tenderness; No Distention, No Hepatosplenomegaly Lymphatic: No Cervical Adenopathy Extremities: No Edema Skin: No Nodules or Sclerosis, - - Patient has a small stage 2 pressure ulcer on her sacrum which has been covered by a mepilex. Neurological: Alert and Oriented x 3, - - EOMI intact. Visual denny intact to confrontation. Tongue deviates slightly to the right. Significant facial droop with drooling on right. CN II-XII otherwise normal. Diffusely weak without focality. No other changes in neuro exam from yesterday. Result Diagrams: 03/05/17 05:02 03/04/17 09:52 Additional Lab and Data: Lab Results Assess/Plan/Problems-Billing Assessment: Patient is an 86yo female with a PMH significant for HTN, OA, B12 deficiency, OA , chronic pain, depression, psychogenic weakness, and decubitus ulcer who presents with altered mental status and right sided facial droop who was not a candidate for tPa and was found to have a subacute infarction on brain CT and MRI. Patient is amenable to STR and is awaiting placement. - Patient Problems (1) CVA (cerebral vascular accident) Current Visit: Yes Status: Acute Code(s): I63.9 - CEREBRAL INFARCTION, UNSPECIFIED SNOMED Code(s): 491893558 Comment: Patient presented with facial weakness and slurred speech. Appreciate neurology consult. Patient was found to have subacute infarct on CT scan and confrimed on MRI. Patient has weakness, but has previous history of psychogenic weakness and is deconditioned to an unknown degree related to this. Would benefit from STR according to PT/OT. Started on ASA and Atorvastatin. Continue Neuro checks. Echo and carotid doppler non-contributory. (2) HTN (hypertension) Current Visit: Yes Status: Acute Code(s): I10 - ESSENTIAL (PRIMARY) HYPERTENSION SNOMED Code(s): 54752547 Comment: On no medications, now high end of normotensive. Will monitor. (3) Depression Current Visit: Yes Status: Acute Code(s): F32.9 - MAJOR DEPRESSIVE DISORDER , SINGLE EPISODE, UNSPECIFIED SNOMED Code(s): 40161700 Comment: Continue sertraline and Zyprexa. Patient currently pleasent and euthymic. (4) Mastoiditis Current Visit: Yes Status: Acute Code(s): H70.90 - UNSPECIFIED MASTOIDITIS, UNSPECIFIED EAR SNOMED Code(s): 15695646 Comment: Mastoiditis on CT scan. No tenderness over right mastoid processes today. No leukocytosis or fever. Patient on Levaquin for this. (5) Seizure disorder Current Visit: No Status: Acute Code(s): G40.909 - EPILEPSY, UNSP, NOT INTRACTABLE, WITHOUT STATUS EPILEPTICUS SNOMED Code(s): 269807056 Comment: Continue phenytoin. Patient unable to state when her last seizure was. Level at 11.7 (6) Hyperlipidemia Current Visit: Yes Status: Acute Code(s): E78.5 - HYPERLIPIDEMIA, UNSPECIFIED SNOMED Code(s): 06572159 Comment: Lipid panel shows elevated LDL cholesterol, started on atorvastatin for secondary prevention of CVA. (7) Low folate Current Visit: Yes Status: Acute Code(s): E53.8 - DEFICIENCY OF OTHER SPECIFIED B GROUP VITAMINS SNOMED Code(s): 570628513 Comment: Will replace (8) Decubital ulcer Current Visit: Yes Status: Acute Code(s): L89.90 - PRESSURE ULCER OF UNSPECIFIED SITE, UNSPECIFIED STAGE SNOMED Code(s): 552421378 Comment: Stage II. Per POA, was acquired at a stay at [facility] and has improved greatly since then. Continue to treat with mepilex and frequent T&P. (9) DNR (do not resuscitate) Current Visit: Yes Status: Acute (10) DVT prophylaxis Current Visit: Yes Status: Acute Code(s): YJX2992 - SNOMED Code(s): 983627998 Comment: Heparin Subcutaneous. Status and Disposition: Patient is admitted inpatient with CVA. Will work with PT/OT. May need JENNIFER or more help at home if willing. Patient non-ambulatory at baseline.
[2017-03-05] MEDS: Levofloxacin 750 MG IVPREMIX(* 750 MG/150 ML BAG IVPB SCH (16:32)
[2017-03-05] MEDS: Atorvastatin* 40 MG TAB PO SCH (16:32)
[2017-03-05] MEDS: OLANzapine TAB* 2.5 MG PO SCH (21:19)
[2017-03-06] MEDS: Heparin VIAL(*) 5000 UNITS/ML VIAL (FIVE THOUSAND) SUBCUT SCH ×2 (05:34→14:28)
[2017-03-06] MEDS: Sertraline* 100 MG TAB PO SCH (07:48)
[2017-03-06] MEDS: Aspirin Low Dose CHEW TAB* 81 MG PO SCH (07:48)
[2017-03-06] MEDS: Phenytoin CAP(*) 100 MG CAP.ER PO SCH (07:48)
[2017-03-06] MEDS: Folic Acid TAB* 1 MG PO SCH (07:48)
[2017-03-06] MEDS: Moisturizing CREAM* 113 GM JAR TOPICAL SCH (07:49)
[2017-03-06] MEDS: Clotrimazole 1% CREAM* 45 GM TOPICAL SCH (07:49)
[2017-03-06 11:34] VITALS: BP 128/52
--- NOTE | 2017-03-06 14:54 | DS ---
AMENDED REPORT NOW INCLUDES COSIGNER DESIGNATION - ESIGNED BEFORE ADJUSTMENT CC: Dr. Eli Zazueta * DATE OF ADMISSION: 03/02/2017. DATE OF DISCHARGE: 03/06/2017. ATTENDING PHYSICIAN: Dr. Harrison Freeman * (dictated by GASTON Castro). PRIMARY CARE PHYSICIAN: Dr. Eli Zazueta. CONSULTING PROVIDERS: Dr. Jameel Greenwood or Neurology. PRIMARY DISCHARGE DIAGNOSES: 1. Cerebrovascular accident. 2. Mastoiditis. SECONDARY DISCHARGE DIAGNOSES: 1. Hypertension. 2. Seizure disorder. 3. Osteoarthritis. 4. B12 deficiency. 5. Chronic back pain. 6. Psychogenic weakness. 7. Kidney stones. 8. Depression. 9. Sacral decubitus ulcer. STUDIES DONE WHILE IN THE HOSPITAL: 1. EKG from 03/02/2017 shows normal sinus rhythm, no ST segment changes, normal axis rate of 62, QTC of 434, no other abnormalities. 2. Brain CT from 03/02/2017 read as no acute intracranial pathology, diffuse involutional change, chronic small vessel ischemic changes, bilateral otitis/ mastoiditis. 3. Chest x-ray from 03/02/2017 read as hyperinflation, no active cardiopulmonary disease. 4. Transthoracic echocardiogram from 03/02/2017 read as mild concentric left ventricular hypertrophy, global ventricular wall motion and contractility within normal limits, normal ventricular systolic function, estimated ejection fraction 55 to 60, bubble study is negative, PFO is not demonstrated, trace aortic regurgitation, mild mitral regurgitation, mild tricuspid regurgitation, no pericardial effusion. 5. Carotid Doppler study from 03/03/2017 read as no evidence of hemodynamically significant stenosis. 6. Brain MRI from 03/04/2017 read as restricted diffusion consistent with subacute nonhemorrhagic infarct of the left basal ganglia, diffuse involutional change with chronic small vessel ischemic changes, large bilateral mastoid effusions. MEDICATIONS AT DISCHARGE: 1. Phenytoin 100 mg p.o. b.i.d. 2. Olanzapine 2.5 mg p.o. at bedtime. 3. Sertraline 100 mg p.o. 0900. 4. Tylenol 650 mg q.i.d. as needed. 5. Clonazepam 1 mg p.o. b.i.d. 6. Clotrimazole one application topical b.i.d. 7. Zofran 8 mg p.o. q.8 hours. 8. Aspirin 81 mg p.o. daily. 9. Lipitor 40 mg p.o. evening. 10. Folic acid 1 mg p.o. daily. 11. Magnesium Hydroxide 30 ml p.o. q.4 hours as needed for constipation. 12. Moisturizing cream one application topical b.i.d. 13. Levofloxacin 750 mg p.o. daily times 9. New medications at discharge: Aspirin, Lipitor, folic acid, Milk of Magnesia, moisturizing cream, Levofloxacin, Clonazepam. Discontinued medication at discharge: Clonazepam 1 mg tab p.o. at bedtime. HOSPITAL COURSE: This is a brief summary of the patient's presentation. For more details, please see the history and physical from Amber Tee NP on . In brief, the patient is an 86-year-old female with a past medical history significant as above who came to the emergency department with a right- sided facial droop with slurred speech. It was unable to be determined how long this had been going on, but her last known well was determined to be the night of March 01. The patient slept until 1 o'clock in the afternoon which is unusual for her and was noticed to have neurological deficits at that time. The patient had no other symptoms, except dysuria. The patient had a CT scan which showed no acute intracranial pathology, but was later over read by the neurologist Dr. Greenwood to show a subacute infarct consistent with the MRI. As above, the patient was admitted to the hospital. The patient's blood pressure at admission was slightly elevated at 153/62. This subsided through the course of the hospitalization and was generally in the 120/50 range on the last few days of her admission. The patient on exam had a facial droop, drooling, drooping of the right soft palate on phonation, tongue deviation to the right, as well as diminished facial sensation to light touch on the right side, increased tone in the right hand with no drift. The patient had a swallow evaluation which showed that she should be on pureed solids after her stroke. The patient's lipid profile showed hyperlipidemia with a LDL cholesterol of 139 as well as an HDL cholesterol of 35. The patient was also found to be folate deficient. The patient's TSH was 0.09, but her free T4 and free T3 were both normal. The patient's hemoglobin A1c was 4.8. Per Cardiology consult, besides starting on an aspirin and statin for secondary prevention, there was nothing else to be done. The patient was seen outside the window for TPA. The patient had tenderness to palpation over her mastoid process on her first day in the hospital. The patient was started on Levaquin while in the emergency department for presumed urinary tract infection; however, the urinary culture was found to be negative. However, with the findings of mastoiditis on the CT scan and the MRI, the patient was decided to be kept on Levaquin for a 14 day course to eradicate this infection even though she was asymptomatic and had no signs of active infection on her laboratory evaluation. The patient had no acute complaints over the course of her several day hospitalization, except for occasional frontal headaches on the right side of her head which were very responsive to Tylenol at her home dose. The patient states that she has had these before. The patient was worked with Occupational Therapy and Physical Therapy and determined to have needs for subacute rehab for her possible new neurological deficits as well as her pre-existing weakness due to deconditioning and possible psychogenic weakness, which she was diagnosed with on a previous admission. The patient lives with her son at home and has a complex social situation which was discussed with the patient's power of ip technology transactions attorney on several occasions. The patient's power of ip technology transactions attorney and the patient states that her end goal is to be able to go home and to live with her son. The patient and power of ip technology transactions attorney were in agreement that a short-term stay at rehab would be beneficial to help regain some sort of functional status as the patient had been relatively nonambulatory for the past month or so due to lack of help at home with home health aides. Power of ip technology transactions attorney states that he will be able to set up home health aide support soon and it should be ready for when patient is done with short-term rehab. The patient has a sacral decubitus ulcer which is a grade 2 that did not worsen throughout the hospital stay and has been treated successfully with Mepilex pad which should be continued at the care home. The patient should also follow-up with Dr. Mario as scheduled if she gets out of the care home at that point with regards to her sacral decubitus ulcer. PHYSICAL EXAMINATION ON THE DAY OF DISCHARGE: General: The patient is an 86- year-old female with an obvious right-sided facial droop who is sitting in the bed in no acute distress. Vital Signs: Temperature 97.8, pulse rate 66, respiratory rate 16, oxygen saturation 97 percent on room air, blood pressure 120/52. HEENT: Head normocephalic, atraumatic. Sclerae anicteric. There is no pain with palpation over the bilateral mastoid processes. Otoscopic exam reveals normal tunnels with a large amount of cerumen impaction which was unable to be removed by irrigation. Nasal and oral mucosa are moist and intact. No pharyngeal erythema. 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 Neck: Supple, nontender. No lymphadenopathy. No carotid bruit auscultated. Cardiac: Regular rate and rhythm. No clicks, murmurs, gallops, or rubs. Pulse is 2+ in the bilateral radial, dorsalis pedis, and posterior tibialis areas. No edema. No tenderness to palpation over bilateral calves. Respiratory: Clear to auscultation bilaterally. No wheezes, rales or rhonchi. Good air exchange bilaterally. Abdomen: Soft, nontender, nondistended. No mass. Bowel sounds present. Normoactive in all four quadrants. Genitourinary : No CVA tenderness or suprapubic tenderness. Skin: Clean, dry, intact without rash, except for a sacral decubitus ulcer measuring approximately 2 cm x 2 cm. This is stage 2 and is covered by a Mepilex dressing. Neuro: Extraocular movements intact. Visual denny normal to confrontation. Right- sided facial droop with accompanying drooping of the right eye. Forehead wrinkles symmetrically. Palate deviates to the left on phonation. Tongue deviates to the right on extrusion. Sensation equal to light touch on the bilateral face. Hearing symmetric and intact. 4/5 strength with rotation of the head and shrugging of the shoulders. The patient is diffusely weak without focality on exam with 3/5 strength bilateral upper and lower extremities bilaterally intact. Sensation to light touch of the bilateral upper and lower extremities. Reflex is 1+ in the bilateral biceps, patellae, and Achilles areas. The patient is unable to have the strength tested for plantarflexion due to ankle contractures. Psychiatric: The patient is subdued, but pleasant and cooperative. The patient is alert and oriented times two, stating that the year is 2018. LABORATORY DATA: CBC from 03/05/2017: White blood cell count 3.6, red blood cell count 3.97, hemoglobin 12.2, platelet count 141. BMP from 03/04/2017: Sodium 140, potassium 3.7, chloride 105, carbon dioxide 29, anion gap 6, BUN 8, creatinine 0.6, glucose 116. Other notable lab values: Phenytoin level on admission 17, phenytoin level on 03/05/2017 11.7. DISCHARGE PLAN: The patient will be discharged to [facility] for physical therapy and occupational therapy to help regain some mobility before she is discharged home to live with her son and be supported by home health aides which are being arranged by her power of ip technology transactions attorney. The patient should be turned and positioned to avoid worsening of the sacral decubitus ulcer and should be kept as active as she tolerates. The patient should have a pureed diet, heart-healthy, no caffeine. The patient should follow-up with Dr. Mario as scheduled if this can be arranged with his office. The patient should finish a 14 day course of Levaquin as prescribed for her mastoiditis. The patient should return to the hospital for any alarming symptoms such as new or significantly worsening neurological deficits, fevers, chills, extreme headaches , or other alarming symptoms. The patient should follow-up with her primary care doctor, Dr. Zazueta, upon discharge from [facility]. Approximately 60 minutes were spent on this discharge, 30 of which were spent face- to-face with the patient obtaining history and physical and describing the treatment plan. GASTON CASTRO [id number]/[facility] #: [id number] JOJO
[2017-03-06] MEDS: Acetaminophen TAB* 325 MG PO PRN (16:10)
== END 2017-03-06 16:20 | DRG 65 ==
LOC: ED 14:36 → MEDTELE 18:44
PROVIDERS: ADMIT Internal Medicine; ATTEND Internal Medicine
DX: I63.9 Cerebral infarction, unspecified (principal); R41.4 Neurologic neglect syndrome; L89.152 Pressure ulcer of sacral region, stage 2; H70.93 Unspecified mastoiditis, bilateral; I10 Essential (primary) hypertension; G40.909 Epilepsy, unspecified, not intractable, without status epilepticus; M19.90 Unspecified osteoarthritis, unspecified site; E53.8 Deficiency of other specified B group vitamins; R53.1 Weakness; F32.9 Major depressive disorder, single episode, unspecified; M54.9 Dorsalgia, unspecified; Z96.653 Presence of artificial knee joint, bilateral; Z79.899 Other long term (current) drug therapy; Z88.1 Allergy status to other antibiotic agents; Z88.5 Allergy status to narcotic agent; Z88.0 Allergy status to penicillin; Z88.8 Allergy status to other drugs, medicaments and biological substances; E78.5 Hyperlipidemia, unspecified; Z66 Do not resuscitate; F45.8 Other somatoform disorders; N20.0 Calculus of kidney; H66.93 Otitis media, unspecified, bilateral
CPT/HCPCS: 36415; 70450; 70551; 71010; 80048; 80053; 80061; 80185; 81003; 81015; 82607; 82746; 83036; 83605; 83880; 84439; 84443; 84481; 84484; 85025; 85610; 85652; 87086; 93005; 93306; 93880; A9270-GY; J1644

== ENCOUNTER 2017-04-09 23:14 | Inpatient (IN) | payer MEDICARE ==
[2017-04-10 00:06] LABS: Hematocrit 42 % (35-47); Hemoglobin 13.6 g/dl (12.0-16.0); Mean Corpuscular HGB Conc 32 g/dl (31-36); Mean Corpuscular Hemoglobin 31 pg (27-31); Mean Corpuscular Volume 94 fL (80-97); Mean Platelet Volume 10 um3 (7.4-10.4); Red Blood Count 4.46 10^6/ul (4.0-5.4); Red Cell Distribution Width 15 % (10.5-15); White Blood Count 4.9 10^3/ul (3.5-10.8)
[2017-04-10 00:20] LABS: Albumin 3.8 g/dL (3.2-5.2); BUN/Creatinine Ratio 32.4 (8-20); Calcium 8.8 mg/dL (8.6-10.3); EGFR African American 62.2 (>60); EGFR Non-African American 48.3 (>60); Globulin 1.9 g/dL (2-4); Potassium 3.8 mmol/L (3.5-5.0); Total Bilirubin 0.4 mg/dL (0.2-1.0); Total Protein 5.7 g/dL (6.4-8.9)
[2017-04-10] MEDS ORDERED: Acetaminophen SUPP* 650 MG SUPP PR PRN (01:34)
[2017-04-10] MEDS ORDERED: Ondansetron INJ* 2 MG/ML VIAL IV PRN (01:36)
[2017-04-10 01:41] LABS: Budding Yeast Present (Absent); Urine Bacteria Absent (Absent); Urine Bilirubin Negative (Negative); Urine Glucose Negative (Negative); Urine Nitrite Negative (Negative)
[2017-04-10] MEDS ORDERED: NS 0.9% 1000 ML* 1,000 ML IV ONE (01:45)
--- NOTE | 2017-04-10 04:34 | ED ---
Joya Zaldivar Emily, scribed for Nikki Thomas MD on 04/10/17 at 0044 . Altered Mental Status - HPI Summary HPI Summary: UNABLE TO OBTAIN FULL HPI DUE TO LEVEL 5 CAVEAT - ALTERED MENTAL STATUS AND NONVERBAL This patient is an 86 year old F BIBA to [facility] with a chief complaint of altered mental status that began earlier today. Per care facility, pt has had an increased difficulty swallowing. Patient has a history of cerebral infarction , depression, and weakness. - History Of Current Complaint Chief Complaint: EDAltMentalStatus Stated Complaint: FEVER/UNRESPONSIVE Time Seen by Provider: 04/09/17 23:26 Hx Obtained From: Family/Concrete Pipe [employer] Hx From Patient Unobtainable Due To: Other - Altered mental status and nonverbal Onset/Duration: Still Present - Allergies/Home Medications Allergies/Adverse Reactions: Allergies Allergy/AdvReac Type Severity Reaction Status Date / Time Penicillins [PCN] Allergy Severe anaph Verified 04/10/17 03:13 Oxybutynin Allergy Unknown Verified 04/10/17 03:13 Reaction Details Zolpidem [From Ambien] Allergy Unknown Verified 04/10/17 03:13 Reaction Details Oxycodone AdvReac Intermediate Nausea Verified 04/10/17 03:13 Rofecoxib [From Vioxx] AdvReac Intermediate Edema Verified 04/10/17 03:13 Solifenacin [From Vesicare] AdvReac Intermediate See Comment Verified 04/10/17 03:13 Home Medications: Home Medications Cholecalciferol [D 1000] 1,000 unit PO DAILY 04/10/17 [History Confirmed ] Cyanocobalamin [B-12 Dots] 500 mcg PO DAILY 04/10/17 [History Confirmed 04/10/17 ] Polyethylene Glycol 3350* [Miralax*] 17 gm PO Q12H PRN 04/10/17 [History Confirmed 04/10/17] PMH/Surg Hx/FS Hx/Imm Hx Previously Healthy: No - UNABLE TO OBTAIN FULL Hx DUE TO LEVEL 5 CAVEAT - ALTERED MENTAL STATUS Endocrine/Hematology History: Denies: Hx Anticoagulant Therapy, Hx Blood Disorders, Hx Blood Transfusions, Hx Bone Marrow Disease, Hx Diabetes, Hx Systemic Lupus Erythematosus, Hx Sickle Cell Disease, Hx Thyroid Disease, Hx Anemia, Hx Unexplained Bleeding, Other Endocrine/Hematological Disorders Cardiovascular History: Reports: Hx Hypertension Denies: Hx Angina, Hx Angioplasty, Hx Auto Implanted Cardiovert Defib, Hx Cardiac Arrest, Hx Cardiomegaly, Hx Congenital Heart Disease, Hx Congestive Heart Failure, Hx Coronary Artery Disease, Hx Deep Vein Thrombosis, Hx Hypercholesterolemia, Hx Hypotension, Hx Pacemaker/ICD, Hx Peripheral Vascular Disease, Hx Rheumatic Fever, Hx Syncope, Hx Valvular Heart Disease, Other Cardiovascular Problems/Disorders Respiratory History: Denies: Hx Asthma, Hx Chronic Bronchitis, Hx Chronic Obstructive Pulmonary Disease (COPD), Hx Cystic Fibrosis, Hx Lung Cancer, Hx Pleural Effusion, Hx Pneumonia, Hx Pulmonary Edema, Hx Pulmonary Embolism, Hx Seasonal Allergies, Hx Sleep Apnea, Other Respiratory Problems/Disorders GI History: Denies: Hx Cirrhosis, Hx Crohn's Disease, Hx Diverticulosis, Hx Gall Bladder Disease, Hx Gastroesophageal Reflux Disease, Hx Gastrointestinal Bleed, Hx Hiatal Hernia, Hx Irritable Bowel, Hx Jaundice, Hx Obstructive Bowel, Hx Ileostomy, Hx Pyloric Stenosis, Hx Ulcer, Other GI Disorders History: Reports: Hx Kidney Stones Denies: Hx Acute Renal Failure, Hx Benign Prostatic Hyperplasia, Hx Chronic Renal Failure, Hx Dialysis, Hx Kidney Infection, Other Problems/Disorders Musculoskeletal History: Reports: Hx Arthritis, Hx Back Problems, Hx Osteoporosis, Other Musculoskeletal History Denies: Hx Bursitis, Hx Congenital Bone Abnormalities, Hx Fibromyalgia, Hx Gout, Hx Orthopedic Injury, Hx Scoliosis, Hx Tendonitis Sensory History: Denies: Hx Cataracts, Hx Contacts or Glasses, Hx Eye Injury, Hx Eye Prosthesis, Hx Glaucoma, Hx Macular Degeneration, Hx Vision Problem, Hx Deafness , Hx Hearing Aid, Hx Hearing Problem, Other Sensory Impairments Opthamlomology History: Denies: Hx Cataracts, Hx Contacts or Glasses, Hx Eye Injury, Hx Eye Prosthesis, Hx Glaucoma, Hx Macular Degeneration, Hx Vision Problem, Other Sensory Impairments Neurological History: Reports: Hx Migraine, Hx Seizures, Other Neuro Impairments /Disorders - hx of concussion at 19yrs old Denies: Hx Dementia, Hx Developmental Delay, Hx Headaches, Hx Spinal Cord Injury, Hx Transient Ischemic Attacks (TIA) Psychiatric History: Reports: Hx Depression, Hx Community Mental Health Tx Denies: Hx Anxiety, Hx Attention Deficit Hyperactivity Disorder, Hx Eating Disorder, Hx Panic Disorder, Hx Post Traumatic Stress Disorder, Hx Inpatient Treatment, Hx Schizophrenia, Hx Bipolar Disorder, Hx Suicide Attempt, Hx Substance Abuse, Other Psychiatric Issues/Disorders - Cancer History Hx Chemotherapy: No Hx Radiation Therapy: No - Surgical History Surgery Procedure, Year, and Place: BILAT KNEES, appy, hysterectomy,tonsilectomy Hx Anesthesia Reactions: No - Immunization History Date of Tetanus Vaccine: unknown Date of Influenza Vaccine: unknown Infectious Disease History: No Infectious Disease History: Denies: Hx Clostridium Difficile, Hx Hepatitis, Hx Human Immunodeficiency Virus (HIV), Hx of Known/Suspected MRSA, Hx Shingles, Hx Tuberculosis, Traveled Outside the [place] in Last 30 Days - Family History Known Family History: Positive: Unknown, Other - Negative anxiety, negative depression - Social History Occupation: Retired Lives: At [facility] Alcohol Use: None Hx Substance Use: No Substance Use Type: Reports: None, Prescribed Hx Tobacco Use: No Smoking Status (MU): Never Smoked Tobacco Length of Time of Smoking/Using Tobacco: 15 years Have You Smoked in the Last Year: No Review of Systems - ROS Summary Review of Systems Summary: UNABLE TO OBTAIN FULL ROS DUE TO LEVEL 5 CAVEAT - ALTERED MENTAL STATUS AND NONVERBAL Positive: Other - Positive difficulty swallowing Positive: Weakness All Other Systems Reviewed And Are Negative: No Physical Exam - Summary Physical Exam Summary: UNABLE TO OBTAIN FULL PE DUE TO LEVEL 5 CAVEAT - ALTERED MENTAL STATUS AND NONVERBAL Appearance: nontoxic appearing. Head is contorted to the right. Not following basic commands. Skin: Warm, dry, no mottling, no rashes, no contusions HEENT: EOMI, PERRL, moist mucous membranes Neck: No masses on the neck, supple Respiratory: Clear to auscultation, breath sounds present, no rales, no rhonchi , no wheezes Cardiovascular: RRR, pulses are symmetrical in both lower and upper extremities Abdomen: Soft, non-tender Bowel Sounds: Present Musculoskeletal: No CVA tenderness, no obvious deformity, She can lightly grab. Left leg is plantar flexing. Can move toes a little on the RLE. Neurological: A&Ox3, CN II-XII Intact, moving all extremities symmetrically Psychiatric: Normal affect and mood Triage Information Reviewed: Yes Vital Signs On Initial Exam: Initial Vitals Temp Pulse Resp BP Pulse Ox 99.8 F 97 16 152/71 96 04/09/17 23:16 04/09/17 23:16 04/09/17 23:16 04/09/17 23:16 04/09/17 23:16 Vital Signs Reviewed: Yes Diagnostics - Vital Signs Vital Signs Temp Pulse Resp BP Pulse Ox 04/10/17 00:01 91 16 145/66 97 04/10/17 00:00 92 16 97 04/09/17 23:30 94 14 154/69 96 04/09/17 23:27 95 15 96 04/09/17 23:22 96 15 96 04/09/17 23:20 152/71 04/09/17 23:16 99.8 F 97 16 152/71 96 - Laboratory Lab Results: Lab Results 04/09/17 04/09/17 04/09/17 Range/Units 23:50 23:50 23:50 WBC 4.9 (3.5-10.8) 10^3/ul RBC 4.46 (4.0-5.4) 10^6/ul Hgb 13.6 (12.0-16.0) g/dl Hct 42 (35-47) % MCV 94 (80-97) fL MCH 31 (27-31) pg MCHC 32 (31-36) g/dl RDW 15 (10.5-15) % Plt Count 146 L (150-450) 10^3/ul MPV 10 (7.4-10.4) um3 Neut % (Auto) 61.9 (38-83) % Lymph % (Auto) 21.1 L (25-47) % [place] % (Auto) 16.5 H (1-9) % Eos % (Auto) 0 (0-6) % Baso % (Auto) 0.5 (0-2) % Absolute Neuts (auto) 3.0 (1.5-7.7) 10^3/ul Absolute Lymphs (auto) 1.0 (1.0-4.8) 10^3/ul Absolute Monos (auto) 0.8 (0-0.8) 10^3/ul Absolute Eos (auto) 0 (0-0.6) 10^3/ul Absolute Basos (auto) 0 (0-0.2) 10^3/ul Absolute Nucleated RBC 0 10^3/ul Nucleated RBC % 0 Sodium 157 H* (133-145) mmol/L Potassium 3.8 (3.5-5.0) mmol/L Chloride 118 H (101-111) mmol/L Carbon Dioxide 26 (22-32) mmol/L Anion Gap 13 H (2-11) mmol/L BUN 35 H (6-24) mg/dL Creatinine 1.08 H (0.51-0.95) mg/dL Est GFR ( Amer) 62.2 (>60) Est GFR (Non-Af Amer) 48.3 (>60) BUN/Creatinine Ratio 32.4 H (8-20) Glucose 138 H (70-100) mg/dL Lactic Acid 0.8 (0.5-2.0) mmol/L Calcium 8.8 (8.6-10.3) mg/dL Magnesium 2.0 (1.9-2.7) mg/dL Total Bilirubin 0.40 (0.2-1.0) mg/dL AST 12 L (13-39) U/L ALT 6 L (7-52) U/L Alkaline Phosphatase 43 (34-104) U/L Total Protein 5.7 L (6.4-8.9) g/dL Albumin 3.8 (3.2-5.2) g/dL Globulin 1.9 L (2-4) g/dL Albumin/Globulin Ratio 2.0 (1-3) Result Diagrams: 04/09/17 23:50 04/09/17 23:50 Lab Statement: Any lab studies that have been ordered have been reviewed, and results considered in the medical decision making process. - Radiology CXR Radiology Interpretation Completed By: ED Physician - CXR reveals no acute disease. - CT Brain CT Interpretation Completed By: Radiologist - Brain CT reveals, per radiologist , chronic appearing lacunar infarctions in the left internal capsule. Mastoid inflammation. Dr. Thomas has reviewed this radiology report. Altered Mental Statu Course/Dx - Course Assessment/Plan: LEVEL 5 CAVEAT ALTERED MENTAL STATUS. This patient is an 86 year old F BIBA to [facility] with a chief complaint of altered mental status that began earlier today. Per care facility, pt has had an increased difficulty swallowing. Patient has a history of cerebral infarction, depression, and weakness. Physical Exam Findings. Head is contorted to the right. Not following basic commands. She can lightly grab. Left leg is plantar flexing. Can move toes a little on the RLE. CXR reveals no acute disease. Brain CT reveals, per radiologist, chronic appearing lacunar infarctions in the left internal capsule. Mastoid inflammation. Test results with no significant abnormalities except for high sodium and high chloride. Consult with Dr. Manzanares (hospitalist) at 0035. He agrees to admit pt. - Diagnoses Discharge Diagnoses: Altered mental status Discharge - Discharge Plan Condition: Fair Disposition: ADMITTED TO [facility] documentation as recorded by the Joya wilson Emily accurately reflects the service I personally performed and the decisions made by me, Nikki Thomas MD.
--- NOTE | 2017-04-10 05:11 | HP ---
H&P (Free Text) History and Physical: PCP: Mariela Zazueta MD Date/Time: 04/10/2017 0130 CC: AMS HPI: Mrs Adams is an 86F resident of [facility] CVA Feb 2017 who is only able to communicate with very subtle nods/shakes of the head or blinking. However, the accuracy of her responses are highly questionable. She is currently non-verbal, but at discharge 03/06/2017 was apparently fluent. Nursing at [facility] called reporting a fever of 101F, lethargy, and increased difficulty swallowing. The duration and onset were unable to be determined. PMedHx CVFeb 2017 HTN seizure disorder urolithiasis depression chronic low back pain OA B12 deficiency Ambulatory Orders Phenytoin CAP(*) [Dilantin CAP(*)] 100 mg PO BID 01/28/12 OLANzapine TAB* [Zyprexa 2.5 MG TAB*] 2.5 mg PO BEDTIME tab 08/06/16 Sertraline* [Zoloft*] 100 mg PO 0900 tab 08/06/16 Acetaminophen TAB* [Tylenol TAB*] 650 mg PO QID PRN 01/16/17 Ondansetron [Zofran 8 MG Odt] 8 mg PO Q8H #20 tab 01/18/17 Aspirin Low Dose CHEW TAB* [Aspirin Low Dose TAB*] 81 mg PO DAILY tab.chew Atorvastatin* [Lipitor 40 MG*] 40 mg PO 1700 tab 03/06/17 Folic Acid TAB* [Folvite TAB*] 1 mg PO DAILY tab 03/06/17 Magnesium Hydroxide LIQ* [Milk of Magnesia LIQ*] 30 ml PO Q4H PRN udc 03/06/17 clonazePAM TAB(*) [Klonopin TAB(*)] 1 mg PO BID #30 tab MDD 2 tabs 03/06/17 Cholecalciferol [D 1000] 1,000 unit PO DAILY 04/10/17 Cyanocobalamin [B-12 Dots] 500 mcg PO DAILY 04/10/17 Polyethylene Glycol 3350* [Miralax*] 17 gm PO Q12H PRN 04/10/17 Allergies Penicillins [PCN] Allergy (Severe, Verified 04/10/17 03:13) anaph Oxybutynin Allergy (Verified 04/10/17 03:13) Unknown Reaction Details Zolpidem [From Ambien] Allergy (Verified 04/10/17 03:13) Unknown Reaction Details INC. CONFUSION Oxycodone Adverse Reaction (Intermediate, Verified 04/10/17 03:13) Nausea Rofecoxib [From Vioxx] Adverse Reaction (Intermediate, Verified 04/10/17 03:13) Edema Solifenacin [From Vesicare] Adverse Reaction (Intermediate, Verified 04/10/17 03 :13) See Comment UNSTEADY PSurgHx appendectomy hysterectomy B TKA SocHx: no tobacco, alcohol, or recreational drugs per HX; currently resides at [facility], previously with son; DNR code status FamHx: unobtainable ROS: as above, otherwise reviewed and all were negative vitals: Vital Signs Temp 37.3 C 04/10/17 03:53 Pulse 88 04/10/17 03:53 Resp 12 04/10/17 03:53 BP 144/68 04/10/17 03:53 Pulse Ox 97 04/10/17 04:07 Intake & Output 04/09/17 04/09/17 04/10/17 11:59 23:59 11:59 Weight 58.967 kg 52.4 kg Constitutional: NAD, normally developed, well-nourished elderly white female HEENM: atraumatic; sclera/conjunctiva: anicteric/clear; hearing: unable to adequately assess; oropharynx: clear, mucosa dry Neck: soft tissue: no nuchal rigidity; thyroid: non-tender Pulmonary: scant diffuse crackles, good aeration, no accessory muscle use CV: RR/RR, normal S1S2, no carotid bruit, no jugular venous distention, 2+ B DP/ PT, no edema Abdominal: soft, non-distended, non-tender, no rebound/guarding/rigidity, normoactive bowel sounds, no hepatosplenomegaly or masses, no costovertebral angle tenderness Musculoskeletal: general: grossly intact, no tenderness to palpation Integumental: normal appearance and texture Psychiatric orientation: awake, unable to accurately determine orientation affect: flat mood: acquiescent eye contact: fair content: non-verbal memory: unable to assess responses: minimally nods/shakes head yes/no; reliability highly questionable insight: unable to determine Testing: Lab Results 1204/09/17 04/09/17 Range/Units 23:50 23:50 23:50 WBC 4.9 (3.5-10.8) 10^3/ul RBC 4.46 (4.0-5.4) 10^6/ul Hgb 13.6 (12.0-16.0) g/dl Hct 42 (35-47) % MCV 94 (80-97) fL MCH 31 (27-31) pg MCHC 32 (31-36) g/dl RDW 15 (10.5-15) % Plt Count 146 L (150-450) 10^3/ul MPV 10 (7.4-10.4) um3 Neut % (Auto) 61.9 (38-83) % Lymph % (Auto) 21.1 L (25-47) % [place] % (Auto) 16.5 H (1-9) % Eos % (Auto) 0 (0-6) % Baso % (Auto) 0.5 (0-2) % Absolute Neuts (auto) 3.0 (1.5-7.7) 10^3/ul Absolute Lymphs (auto) 1.0 (1.0-4.8) 10^3/ul Absolute Monos (auto) 0.8 (0-0.8) 10^3/ul Absolute Eos (auto) 0 (0-0.6) 10^3/ul Absolute Basos (auto) 0 (0-0.2) 10^3/ul Absolute Nucleated RBC 0 10^3/ul Nucleated RBC % 0 Sodium 157 H* (133-145) mmol/L Potassium 3.8 (3.5-5.0) mmol/L Chloride 118 H (101-111) mmol/L Carbon Dioxide 26 (22-32) mmol/L Anion Gap 13 H (2-11) mmol/L BUN 35 H (6-24) mg/dL Creatinine 1.08 H (0.51-0.95) mg/dL Est GFR ( Amer) 62.2 (>60) Est GFR (Non-Af Amer) 48.3 (>60) BUN/Creatinine Ratio 32.4 H (8-20) Glucose 138 H (70-100) mg/dL Lactic Acid 0.8 (0.5-2.0) mmol/L Calcium 8.8 (8.6-10.3) mg/dL Magnesium 2.0 (1.9-2.7) mg/dL Total Bilirubin 0.40 (0.2-1.0) mg/dL AST 12 L (13-39) U/L ALT 6 L (7-52) U/L Alkaline Phosphatase 43 (34-104) U/L Total Protein 5.7 L (6.4-8.9) g/dL Albumin 3.8 (3.2-5.2) g/dL Globulin 1.9 L (2-4) g/dL Albumin/Globulin Ratio 2.0 (1-3) Urine Color Urine Appearance Urine pH (5-9) Ur Specific [place] (1.010-1.030) Urine Protein (Negative) Urine Ketones (Negative) Urine Blood (Negative) Urine Nitrate (Negative) Urine Bilirubin (Negative) Urine Urobilinogen (Negative) Ur Leukocyte Esterase (Negative) Urine WBC (Auto) (Absent) Urine RBC (Auto) (Absent) Ur Squamous Epith Cells (Absent) Urine Bacteria (Absent) Hyaline Casts (Absent) Urine Yeast (Absent) Urine Glucose (Negative) Influenza A (Rapid) (Negative) Influenza B (Rapid) (Negative) 04/10/17 04/10/17 Range/Units 01:15 02:22 WBC (3.5-10.8) 10^3/ul RBC (4.0-5.4) 10^6/ul Hgb (12.0-16.0) g/dl Hct (35-47) % MCV (80-97) fL MCH (27-31) pg MCHC (31-36) g/dl RDW (10.5-15) % Plt Count (150-450) 10^3/ul MPV (7.4-10.4) um3 Neut % (Auto) (38-83) % Lymph % (Auto) (25-47) % [place] % (Auto) (1-9) % Eos % (Auto) (0-6) % Baso % (Auto) (0-2) % Absolute Neuts (auto) (1.5-7.7) 10^3/ul Absolute Lymphs (auto) (1.0-4.8) 10^3/ul Absolute Monos (auto) (0-0.8) 10^3/ul Absolute Eos (auto) (0-0.6) 10^3/ul Absolute Basos (auto) (0-0.2) 10^3/ul Absolute Nucleated RBC 10^3/ul Nucleated RBC % Sodium (133-145) mmol/L Potassium (3.5-5.0) mmol/L Chloride (101-111) mmol/L Carbon Dioxide (22-32) mmol/L Anion Gap (2-11) mmol/L BUN (6-24) mg/dL Creatinine (0.51-0.95) mg/dL Est GFR ( Amer) (>60) Est GFR (Non-Af Amer) (>60) BUN/Creatinine Ratio (8-20) Glucose (70-100) mg/dL Lactic Acid (0.5-2.0) mmol/L Calcium (8.6-10.3) mg/dL Magnesium (1.9-2.7) mg/dL Total Bilirubin (0.2-1.0) mg/dL AST (13-39) U/L ALT (7-52) U/L Alkaline Phosphatase (34-104) U/L Total Protein (6.4-8.9) g/dL Albumin (3.2-5.2) g/dL Globulin (2-4) g/dL Albumin/Globulin Ratio (1-3) Urine Color Yellow Urine Appearance Cloudy Urine pH 5.0 (5-9) Ur Specific [place] 1.018 (1.010-1.030) Urine Protein 1+(30 mg/dl) H (Negative) Urine Ketones 1+ H (Negative) Urine Blood 1+ H (Negative) Urine Nitrate Negative (Negative) Urine Bilirubin Negative (Negative) Urine Urobilinogen Positive H (Negative) Ur Leukocyte Esterase 2+ H (Negative) Urine WBC (Auto) 3+(>20/hpf) H (Absent) Urine RBC (Auto) 3+(>10/hpf) H (Absent) Ur Squamous Epith Cells Present H (Absent) Urine Bacteria Absent (Absent) Hyaline Casts Present H (Absent) Urine Yeast Present H (Absent) Urine Glucose Negative (Negative) Influenza A (Rapid) Negative (Negative) Influenza B (Rapid) Negative (Negative) ECG, personally reviewed: CXR, personally reviewed: poor positioning w/ L shoulder forward, no acute process identified CT brain WO, personally reviewed: IMPRESSION: Chronic appearing lacunar infarctions in the left internal capsule. Mastoid inflammation. Impression: 86F HX CVA, HTN, & seizure disorder presents with fever, lethargy, & increased difficulty swallowing found to have a serum sodium of 157 DIAGNOSIS & PLAN Primary hyperNatremia : suspect 2nd dehydration : NS IV rehydration & trend Na : ICU monitoring : supportive care ANTOINE : suspect pre-renal : IVFs & trend BUN/creatinine UA consistent w/ UTI : ciprofloxacin IV : urine CX lethargy, increased difficulty swallowing : likely 2nd severe fluid & electrolyte imbalance as well as UTI : TX as above & re-evaluate for clinical improvement : NPO until bedside swallow passed fever : blood & urine CXs : US BLE in AM to r/o DVT : trend temperature & WBC curves Secondary CVA Feb 2017 : continue aspirin HTN : not currently on medications, trend HLD, pure hypercholesterolemia : continue atorvastatin once able to take PO seizure disorder : continue phenytoin : if unable to take PO by AM, will need to convert to IV urolithiasis : no acute issues depression : continue sertaline once able to take PO : hold olanzapine 2nd potential for sedation Admission Rational: inpatient for ICU management of severe fluid & electrolyte imbalance, not anticipating discharge w/i 48h DVTp: heparin SQ Code Status: DNR HCP: Johnson Prescott
[2017-04-10 06:04] LABS: Hematocrit 43 % (35-47); Hemoglobin 13.7 g/dl (12.0-16.0); Mean Corpuscular HGB Conc 32 g/dl (31-36); Mean Corpuscular Hemoglobin 30 pg (27-31); Mean Corpuscular Volume 95 fL (80-97); Mean Platelet Volume 11 um3 (7.4-10.4); Red Blood Count 4.52 10^6/ul (4.0-5.4); Red Cell Distribution Width 15 % (10.5-15); White Blood Count 5.7 10^3/ul (3.5-10.8)
[2017-04-10] MEDS: Ciprofloxacin IV(*) 400 MG in D5W 250 ML BAG* 160 ML IVPB SCH ×2 (06:08→18:42)
[2017-04-10 06:20] LABS: BUN/Creatinine Ratio 37.2 (8-20); Calcium 8.8 mg/dL (8.6-10.3); EGFR Non-African American 56.7 (>60); Potassium 3.7 mmol/L (3.5-5.0)
--- NOTE | 2017-04-10 08:02 | RAD ---
HISTORY: Altered mental status COMPARISONS: March 02, 2017 VIEWS: 1: frontal portable view of the chest at 11:45 PM. The patient is obliqued to the right. FINDINGS: LINES AND TUBES: None. CARDIOMEDIASTINAL SILHOUETTE: The cardiomediastinal silhouette is normal for portable technique. PLEURA: The costophrenic angles are sharp. No pleural abnormalities are noted. LUNG PARENCHYMA: There is hyperinflation. ABDOMEN: The upper abdomen is clear. There is no subphrenic gas. BONES AND SOFT TISSUES: No bone or soft tissue abnormalities are noted. IMPRESSION: NO ACTIVE CARDIOPULMONARY DISEASE.
--- NOTE | 2017-04-10 08:06 | RAD ---
HISTORY: Altered mental status COMPARISONS: March 02, 2017 TECHNIQUE: Multiple contiguous axial CT scans were obtained of the head without intravenous contrast. FINDINGS: HEMORRHAGE/INFARCT: There is no hemorrhage or acute infarct. MASSES/SHIFT: There is no mass or shift. EXTRA-AXIAL SPACES: There are no extra-axial fluid collections. SULCI AND VENTRICLES: There is diffuse and proportional enlargement of the sulci and ventricles. CEREBRUM: There is hypoattenuation of the periventricular and subcortical white matter. Appearing infarcts. BRAINSTEM: There are no focal parenchymal abnormalities. CEREBELLUM: There are no focal parenchymal abnormalities. VESSELS: The vessels are grossly normal. PARANASAL SINUSES: The paranasal sinuses are clear. There are bilateral mastoid effusions. There is fluid within the right middle ear cavity ORBITS: The orbits are unremarkable. BONES AND SOFT TISSUE: No bone or soft tissue abnormalities are noted. OTHER: None IMPRESSION: 1. NO ACUTE INTRACRANIAL PATHOLOGY. 2. DIFFUSE INVOLUTIONAL CHANGE WITH CHRONIC SMALL VESSEL ISCHEMIC CHANGES. 3. LEFT MASTOID EFFUSION WITH RIGHT OTITIS/MASTOIDITIS.
[2017-04-10] MEDS: Pantoprazole IV* 40 MG IV SCH (12:30)
--- NOTE | 2017-04-10 14:07 | PN ---
Subjective Date of Service: 04/10/17 Interval History: Pt denies any pain. She denies any SOB. Communicating is difficult due to severe dysarthria. Objective Active Medications: Acetaminophen (Tylenol Supp*) 650 mg NM Q6H PRN PRN Reason: FEVER/PAIN Aspirin (Aspirin Low Dose Tab*) 81 mg PO DAILY [facility] Atorvastatin Calcium (Lipitor*) 40 mg PO 1700 [facility] Clonazepam (Klonopin Tab(*)) 1 mg PO BID [facility] Heparin Sodium (Porcine) (Heparin Vial(*)) 5,000 units SUBCUT Q8HR [facility] Sodium Chloride (Ns 0.9% 1000 Ml*) 1,000 mls @ 100 mls/hr IV PER RATE [facility] Ciprofloxacin 400 mg/ Dextrose 200 mls @ 200 mls/hr IVPB Q12H [facility] Last Admin: 04/10/17 06:08 Dose: 200 mls/hr Ondansetron HCl (Zofran Inj*) 4 mg IV Q6H PRN PRN Reason: NAUSEA Pantoprazole Sodium (Protonix Iv*) 40 mg IV DAILY [facility] Last Admin: 04/10/17 12:30 Dose: 40 mg Phenytoin Sodium (Dilantin Cap(*)) 100 mg PO BID [facility] Sertraline HCl (Zoloft*) 100 mg PO 0900 [facility] Vital Signs - 8 hr 04/10/17 04/10/17 04/10/17 06:00 06:15 06:30 Temperature Pulse Rate 78 80 76 Respiratory 13 12 13 Rate Blood Pressure 150/71 161/76 149/73 (mmHg) O2 Sat by Pulse 99 99 99 Oximetry 04/10/17 04/10/17 04/10/17 06:45 07:00 07:15 Temperature Pulse Rate 77 78 76 Respiratory 13 13 15 Rate Blood Pressure 148/75 130/67 158/70 (mmHg) O2 Sat by Pulse 100 100 100 Oximetry 04/10/17 04/10/17 04/10/17 07:30 07:39 07:45 Temperature 97.7 F Pulse Rate 78 78 Respiratory 16 17 Rate Blood Pressure 155/75 158/73 (mmHg) O2 Sat by Pulse 100 100 Oximetry 04/10/17 04/10/17 04/10/17 08:00 08:15 08:30 Temperature Pulse Rate 78 78 81 Respiratory 15 16 17 Rate Blood Pressure 161/77 158/70 165/79 (mmHg) O2 Sat by Pulse 100 100 100 Oximetry 04/10/17 04/10/17 04/10/17 08:45 09:00 09:15 Temperature Pulse Rate 80 76 81 Respiratory 16 17 17 Rate Blood Pressure 152/76 150/74 158/79 (mmHg) O2 Sat by Pulse 99 99 99 Oximetry 04/10/17 04/10/17 04/10/17 09:30 09:45 10:00 Temperature Pulse Rate 83 82 82 Respiratory 13 14 14 Rate Blood Pressure 158/80 154/82 162/84 (mmHg) O2 Sat by Pulse 100 100 100 Oximetry 04/10/17 04/10/17 04/10/17 10:15 10:30 10:45 Temperature Pulse Rate 79 80 80 Respiratory 18 18 16 Rate Blood Pressure 153/78 150/75 151/77 (mmHg) O2 Sat by Pulse 99 99 99 Oximetry 04/10/17 04/10/17 04/10/17 11:00 11:16 11:30 Temperature Pulse Rate 80 79 77 Respiratory 15 20 18 Rate Blood Pressure 150/74 175/82 155/74 (mmHg) O2 Sat by Pulse 99 99 100 Oximetry 04/10/17 04/10/17 04/10/17 11:45 12:00 12:15 Temperature 98.2 F Pulse Rate 74 75 81 Respiratory 13 14 18 Rate Blood Pressure 159/74 160/73 162/81 (mmHg) O2 Sat by Pulse 100 100 100 Oximetry 04/10/17 04/10/17 04/10/17 12:30 12:45 13:00 Temperature Pulse Rate 80 79 78 Respiratory 18 17 18 Rate Blood Pressure 160/76 164/70 161/75 (mmHg) O2 Sat by Pulse 100 99 100 Oximetry Oxygen Devices in Use Now: None Appearance: Elderly female sitting up in bed, NAD Eyes: No Scleral Icterus Ears/Nose/Mouth/Throat: - - dry oral mucosa Respiratory: Symmetrical Chest Expansion and Respiratory Effort, Clear to Auscultation - anteriorly Cardiovascular: NL Sounds; No Murmurs; No JVD, RRR, No Edema Abdominal: NL Sounds; No Tenderness; No Distention Extremities: No Clubbing, Cyanosis Skin: No Rash or Ulcers, No Nodules or Sclerosis Neurological: - - alert, appears to be oriented to place, very dysarthric speech , slightly weak R medical coder, pt moves very slowly Result Diagrams: 04/10/17 05:49 04/10/17 05:49 Additional Lab and Data: Lab Results 04/09/17 04/09/17 04/09/17 Range/Units 23:50 23:50 23:50 WBC 4.9 (3.5-10.8) 10^3/ul RBC 4.46 (4.0-5.4) 10^6/ul Hgb 13.6 (12.0-16.0) g/dl Hct 42 (35-47) % MCV 94 (80-97) fL MCH 31 (27-31) pg MCHC 32 (31-36) g/dl RDW 15 (10.5-15) % Plt Count 146 L (150-450) 10^3/ul MPV 10 (7.4-10.4) um3 Neut % (Auto) 61.9 (38-83) % Lymph % (Auto) 21.1 L (25-47) % [place] % (Auto) 16.5 H (1-9) % Eos % (Auto) 0 (0-6) % Baso % (Auto) 0.5 (0-2) % Absolute Neuts (auto) 3.0 (1.5-7.7) 10^3/ul Absolute Lymphs (auto) 1.0 (1.0-4.8) 10^3/ul Absolute Monos (auto) 0.8 (0-0.8) 10^3/ul Absolute Eos (auto) 0 (0-0.6) 10^3/ul Absolute Basos (auto) 0 (0-0.2) 10^3/ul Absolute Nucleated RBC 0 10^3/ul Nucleated RBC % 0 Sodium 157 H* (133-145) mmol/L Potassium 3.8 (3.5-5.0) mmol/L Chloride 118 H (101-111) mmol/L Carbon Dioxide 26 (22-32) mmol/L Anion Gap 13 H (2-11) mmol/L BUN 35 H (6-24) mg/dL Creatinine 1.08 H (0.51-0.95) mg/dL Est GFR ( Amer) 62.2 (>60) Est GFR (Non-Af Amer) 48.3 (>60) BUN/Creatinine Ratio 32.4 H (8-20) Glucose 138 H (70-100) mg/dL Lactic Acid 0.8 (0.5-2.0) mmol/L Calcium 8.8 (8.6-10.3) mg/dL Magnesium 2.0 (1.9-2.7) mg/dL Total Bilirubin 0.40 (0.2-1.0) mg/dL AST 12 L (13-39) U/L ALT 6 L (7-52) U/L Alkaline Phosphatase 43 (34-104) U/L Total Protein 5.7 L (6.4-8.9) g/dL Albumin 3.8 (3.2-5.2) g/dL Globulin 1.9 L (2-4) g/dL Albumin/Globulin Ratio 2.0 (1-3) Microbiology and Other Data: Microbiology 04/10/17 02:05 Nasal Screen MRSA (PCR)([facility]) - Final Nasal Mrsa Negative 04/10/17 02:05 Influenza Types A,B Antigen ([facility]NA) - Final Nasopharyngeal Specimen received for Influenza A/B Molecular testing Assess/Plan/Problems-Billing Ms Adams is an 86 yo F who has a 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 - Patient Problems (1) Hypernatremia Current Visit: Yes Status: Acute Code(s): E87.0 - HYPEROSMOLALITY AND HYPERNATREMIA SNOMED Code(s): 67402953 Comment: The patient is markedly hypernatremic likely from poor oral intake related to her dysphagia from her recent CVA. She has been receiving NS since admission. Will recheck BMP now and make adjustments in the fluid orders depending on the level of improvement in her Na level. (2) Dysphagia Current Visit: Yes Status: Acute Code(s): R13.10 - DYSPHAGIA, UNSPECIFIED SNOMED Code(s): 55319359 Comment: The patient was discharged to [facility] on a pureed diet. Repeat swallow evaluation pending. I suspect the dysphagia may have led to her poor oral intake and therefore hypernatremia. (3) HTN (hypertension) Current Visit: Yes Status: Acute Code(s): I10 - ESSENTIAL (PRIMARY) HYPERTENSION SNOMED Code(s): 11101323 Comment: BP is moderately elevated will start amlodipine 5mg daily. Monitor BP. (4) Depression Current Visit: Yes Status: Acute Code(s): F32.9 - MAJOR DEPRESSIVE DISORDER , SINGLE EPISODE, UNSPECIFIED SNOMED Code(s): 78394142 Comment: Zyprexa on hold given AMS on admission. Continue sertraline and prn clonazepam. (5) DVT prophylaxis Current Visit: Yes Status: Acute Code(s): UQR5911 - SNOMED Code(s): 059580887 Comment: SQ heparin (6) DNR (do not resuscitate) Current Visit: Yes Status: Acute
[2017-04-10] MEDS: NS 0.9% 1000 ML* 1,000 ML IV SCH (14:24)
--- NOTE | 2017-04-10 14:51 | RAD ---
HISTORY: Fever, stroke COMPARISONS: None relevant TECHNIQUE: Multiple transverse and longitudinal ultrasound images were obtained of the bilateral lower extremities from the level of the common femoral vein inferiorly through to the infrapopliteal veins using grayscale, color Doppler, and spectral Doppler imaging with and without compression and with augmentation. FINDINGS: VEINS: The left femoral vein and popliteal vein are partially compressible consistent with nonocclusive, chronic thrombus. The remainder of the venous system of the bilateral lower extremities is compressible throughout its course, with normal flow on color Doppler imaging and normal response to augmentation on spectral Doppler imaging. SOFT TISSUES: Unremarkable. OTHER FINDINGS: None. IMPRESSION: 1. 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 2. NO RIGHT LOWER EXTREMITY DEEP VEIN THROMBOSIS.
[2017-04-10] MEDS: amLODIPine TAB* 5 MG PO SCH (15:08)
[2017-04-10] MEDS: Phenytoin CAP(*) 100 MG CAP.ER PO SCH ×2 (15:08→20:42)
[2017-04-10] MEDS: clonazePAM TAB(*) 1 MG PO SCH ×2 (15:09→20:42)
[2017-04-10] MEDS: Sertraline* 100 MG TAB PO SCH (15:10)
[2017-04-10] MEDS: Aspirin Low Dose CHEW TAB* 81 MG PO SCH (15:10)
[2017-04-10 15:41] LABS: BUN/Creatinine Ratio 38.4 (8-20); Calcium 8.8 mg/dL (8.6-10.3); EGFR African American 97.7 (>60); Potassium 3.6 mmol/L (3.5-5.0)
[2017-04-10] MEDS ORDERED: D5W 1000 ML BAG* 1,000 ML IV SCH (17:00)
[2017-04-10] MEDS ORDERED: D5W 250 ML BAG* 250 ML ONE (18:38)
[2017-04-10] MEDS: Atorvastatin* 40 MG TAB PO SCH (18:42)
[2017-04-10 23:34] LABS: Potassium 3.2 mmol/L (3.5-5.0)
[2017-04-11 06:14] LABS: Hematocrit 38 % (35-47); Hemoglobin 12.6 g/dl (12.0-16.0); Mean Corpuscular HGB Conc 33 g/dl (31-36); Mean Corpuscular Hemoglobin 31 pg (27-31); Mean Corpuscular Volume 93 fL (80-97); Mean Platelet Volume 11 um3 (7.4-10.4); Red Blood Count 4.06 10^6/ul (4.0-5.4); Red Cell Distribution Width 14 % (10.5-15); White Blood Count 5.5 10^3/ul (3.5-10.8)
[2017-04-11 06:26] LABS: BUN/Creatinine Ratio 33.9 (8-20); Calcium 8.8 mg/dL (8.6-10.3); EGFR African American 132.6 (>60); EGFR Non-African American 103.1 (>60); Potassium 3.1 mmol/L (3.5-5.0)
[2017-04-11] MEDS: Heparin VIAL(*) 5000 UNITS/ML VIAL (FIVE THOUSAND) SUBCUT SCH ×3 (06:30→22:46)
[2017-04-11] MEDS: Ciprofloxacin IV(*) 400 MG in D5W 250 ML BAG* 160 ML IVPB SCH ×2 (06:30→18:37)
--- NOTE | 2017-04-11 08:34 | PN ---
Subjective Date of Service: 04/11/17 Interval History: Pt is feeling ok. She is able to tell me her throat hurts, she states yes to it feeling dry. She also states yes to feeling SOB. She is not able to elaborate any further. Objective Active Medications: Acetaminophen (Tylenol Supp*) 650 mg [place] Q6H PRN PRN Reason: FEVER/PAIN Amlodipine Besylate (Norvasc Tab*) 5 mg PO DAILY [facility] Last Admin: 04/10/17 15:08 Dose: 5 mg Aspirin (Aspirin Low Dose Tab*) 81 mg PO DAILY [facility] Last Admin: 04/10/17 15:10 Dose: 81 mg Atorvastatin Calcium (Lipitor*) 40 mg PO 1700 [facility] Last Admin: 04/10/17 18:42 Dose: Not Given Clonazepam (Klonopin Tab(*)) 1 mg PO BID [facility] Last Admin: 04/10/17 20:42 Dose: Not Given Heparin Sodium (Porcine) (Heparin Vial(*)) 5,000 units SUBCUT Q8HR [facility] Sodium Chloride (Ns 0.9% 1000 Ml*) 1,000 mls @ 100 mls/hr IV PER RATE [facility] Last Admin: 04/10/17 14:24 Dose: 100 mls/hr Ciprofloxacin 400 mg/ Dextrose 200 mls @ 200 mls/hr IVPB Q12H [facility] Last Admin: 04/10/17 18:42 Dose: 200 mls/hr Potassium Chloride (Potassium Chloride 20 Meq/100 Ml Ivpremix*) 20 meq in 100 mls @ 50 mls/hr IV Q2H [facility] Stop: 04/11/17 12:59 Dextrose (D5w 1000 Ml Bag*) 1,000 mls @ 75 mls/hr IV PER RATE [facility] Ondansetron HCl (Zofran Inj*) 4 mg IV Q6H PRN PRN Reason: NAUSEA Pantoprazole Sodium (Protonix Iv*) 40 mg IV DAILY [facility] Last Admin: 04/10/17 12:30 Dose: 40 mg Phenytoin Sodium (Dilantin Cap(*)) 100 mg PO BID [facility] Last Admin: 04/10/17 20:42 Dose: Not Given Sertraline HCl (Zoloft*) 100 mg PO 0900 [facility] Last Admin: 04/10/17 15:10 Dose: 100 mg Vital Signs - 8 hr 04/11/17 04/11/17 04/11/17 00:30 00:45 01:00 Temperature Pulse Rate 79 74 74 Respiratory 20 14 13 Rate Blood Pressure 152/77 152/72 159/75 (mmHg) O2 Sat by Pulse 100 100 100 Oximetry 04/11/17 04/11/17 04/11/17 01:15 01:30 01:45 Temperature Pulse Rate 75 73 77 Respiratory 13 13 16 Rate Blood Pressure 147/70 149/70 158/73 (mmHg) O2 Sat by Pulse 99 99 99 Oximetry 04/11/17 04/11/17 04/11/17 02:00 02:15 02:30 Temperature Pulse Rate 77 81 78 Respiratory 14 14 19 Rate Blood Pressure 153/76 161/78 148/73 (mmHg) O2 Sat by Pulse 99 97 99 Oximetry 04/11/17 04/11/17 04/11/17 02:45 03:00 03:01 Temperature Pulse Rate 78 82 79 Respiratory 24 18 17 Rate Blood Pressure 153/72 159/88 (mmHg) O2 Sat by Pulse 98 95 98 Oximetry 04/11/17 04/11/17 04/11/17 03:15 03:30 03:45 Temperature Pulse Rate 82 81 82 Respiratory 16 18 17 Rate Blood Pressure 158/80 156/80 151/80 (mmHg) O2 Sat by Pulse 98 96 96 Oximetry 04/11/17 04/11/17 04/11/17 03:47 04:00 04:01 Temperature 98.0 F Pulse Rate 84 81 Respiratory 14 16 Rate Blood Pressure 165/83 (mmHg) O2 Sat by Pulse 95 98 Oximetry 04/11/17 04/11/17 04/11/17 04:15 04:30 04:45 Temperature Pulse Rate 82 80 80 Respiratory 15 18 16 Rate Blood Pressure 154/77 152/75 152/80 (mmHg) O2 Sat by Pulse 98 98 98 Oximetry 04/11/17 04/11/17 04/11/17 05:00 05:15 05:30 Temperature Pulse Rate 79 82 89 Respiratory 16 16 18 Rate Blood Pressure 151/79 162/81 155/79 (mmHg) O2 Sat by Pulse 99 99 99 Oximetry 04/11/17 04/11/17 04/11/17 05:45 06:00 06:15 Temperature Pulse Rate 83 86 80 Respiratory 15 17 15 Rate Blood Pressure 171/85 149/72 146/74 (mmHg) O2 Sat by Pulse 99 99 99 Oximetry 04/11/17 04/11/17 04/11/17 06:30 06:45 07:36 Temperature 98.4 F Pulse Rate 83 88 Respiratory 18 18 Rate Blood Pressure 164/83 155/76 (mmHg) O2 Sat by Pulse 99 99 Oximetry Oxygen Devices in Use Now: None Appearance: Elderly female lying in bed, awake, very slow to respond, NAD Eyes: No Scleral Icterus Ears/Nose/Mouth/Throat: - - dry oral mucosa Respiratory: Symmetrical Chest Expansion and Respiratory Effort, Clear to Auscultation Cardiovascular: NL Sounds; No Murmurs; No JVD, RRR, No Edema Abdominal: NL Sounds; No Tenderness; No Distention Skin: No Rash or Ulcers Neurological: - - alert, slowly answers questions with marked dysarthria, significant R facial droop Result Diagrams: 04/11/17 05:45 04/11/17 05:45 Additional Lab and Data: Lab Results 04/09/17 04/09/17 04/09/17 Range/Units 23:50 23:50 23:50 WBC 4.9 (3.5-10.8) 10^3/ul RBC 4.46 (4.0-5.4) 10^6/ul Hgb 13.6 (12.0-16.0) g/dl Hct 42 (35-47) % MCV 94 (80-97) fL MCH 31 (27-31) pg MCHC 32 (31-36) g/dl RDW 15 (10.5-15) % Plt Count 146 L (150-450) 10^3/ul MPV 10 (7.4-10.4) um3 Neut % (Auto) 61.9 (38-83) % Lymph % (Auto) 21.1 L (25-47) % [place] % (Auto) 16.5 H (1-9) % Eos % (Auto) 0 (0-6) % Baso % (Auto) 0.5 (0-2) % Absolute Neuts (auto) 3.0 (1.5-7.7) 10^3/ul Absolute Lymphs (auto) 1.0 (1.0-4.8) 10^3/ul Absolute Monos (auto) 0.8 (0-0.8) 10^3/ul Absolute Eos (auto) 0 (0-0.6) 10^3/ul Absolute Basos (auto) 0 (0-0.2) 10^3/ul Absolute Nucleated RBC 0 10^3/ul Nucleated RBC % 0 Sodium 157 H* (133-145) mmol/L Potassium 3.8 (3.5-5.0) mmol/L Chloride 118 H (101-111) mmol/L Carbon Dioxide 26 (22-32) mmol/L Anion Gap 13 H (2-11) mmol/L BUN 35 H (6-24) mg/dL Creatinine 1.08 H (0.51-0.95) mg/dL Est GFR ( Amer) 62.2 (>60) Est GFR (Non-Af Amer) 48.3 (>60) BUN/Creatinine Ratio 32.4 H (8-20) Glucose 138 H (70-100) mg/dL Lactic Acid 0.8 (0.5-2.0) mmol/L Calcium 8.8 (8.6-10.3) mg/dL Magnesium 2.0 (1.9-2.7) mg/dL Total Bilirubin 0.40 (0.2-1.0) mg/dL AST 12 L (13-39) U/L ALT 6 L (7-52) U/L Alkaline Phosphatase 43 (34-104) U/L Total Protein 5.7 L (6.4-8.9) g/dL Albumin 3.8 (3.2-5.2) g/dL Globulin 1.9 L (2-4) g/dL Albumin/Globulin Ratio 2.0 (1-3) Microbiology and Other Data: Microbiology 04/10/17 02:05 Nasal Screen MRSA (PCR)([facility]) - Final Nasal Mrsa Negative 04/10/17 02:05 Influenza Types A,B Antigen ([facility]) - Final Nasopharyngeal Specimen received for Influenza A/B Molecular testing Assess/Plan/Problems-Billing Ms Adams is an 86 yo F who has a 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 - Patient Problems (1) Hypernatremia Current Visit: Yes Status: Acute Code(s): E87.0 - HYPEROSMOLALITY AND HYPERNATREMIA SNOMED Code(s): 07051843 Comment: The patient is markedly hypernatremic likely from poor oral intake related to her dysphagia from her recent CVA. Na level has finally started to trend down after adding D5W. Will increase the rate of the D5W to 75ml/hr. Recheck Na level at 1700 today. (2) Dysphagia Current Visit: Yes Status: Acute Code(s): R13.10 - DYSPHAGIA, UNSPECIFIED SNOMED Code(s): 04625487 Comment: The patient was discharged to [facility] on a pureed diet. Repeat swallow evaluation still pending. I suspect the dysphagia may have led to her poor oral intake and therefore hypernatremia. I tried to ask the patient if she was unable to swallow would she want a feeding tube and I believe she stated no but her speech is so slurred we will need to readress this. (3) Thrombocytopenia Current Visit: Yes Status: Acute Code(s): D69.6 - THROMBOCYTOPENIA, UNSPECIFIED SNOMED Code(s): 308652770 Comment: The patient is developing a progressive thrombocytopenia. If worsened tomorrow will stop heparin as perhaps she is developing HIT. (4) UTI (urinary tract infection) Current Visit: Yes Status: Acute Comment: On admission there was concern for UTI. She was started on cipro which I will continue for now. If her urine culture comes back negative will stop the cipro. (5) HTN (hypertension) Current Visit: Yes Status: Acute Code(s): I10 - ESSENTIAL (PRIMARY) HYPERTENSION SNOMED Code(s): 34556734 Comment: Pt has not been able to swallow for nursing. Will allow BP to be moderately elevated at this point. (6) Depression Current Visit: Yes Status: Acute Code(s): F32.9 - MAJOR DEPRESSIVE DISORDER , SINGLE EPISODE, UNSPECIFIED SNOMED Code(s): 17857255 Comment: Zyprexa on hold given AMS on admission. Continue sertraline and prn clonazepam (pt has not been able to take these). (7) DVT prophylaxis Current Visit: Yes Status: Acute Code(s): BIO3915 - SNOMED Code(s): 804750016 Comment: SQ heparin (8) DNR (do not resuscitate) Current Visit: Yes Status: Acute
[2017-04-11] MEDS ORDERED: KCL 20 MEQ/100 ML IVPREMIX* 20 MEQ/100 ML BAG IV SCH (09:00)
[2017-04-11] MEDS: KCL premix 10MEQ/50 ML x 3 RUNS IV SCH ×4 (09:30→13:48)
[2017-04-11] MEDS: NS 0.9% 1000 ML* 1,000 ML IV SCH ×2 (09:30→22:52)
[2017-04-11] MEDS: Pantoprazole IV* 40 MG IV SCH (09:31)
[2017-04-11] MEDS: clonazePAM TAB(*) 1 MG PO SCH ×2 (10:10→20:30)
[2017-04-11] MEDS: amLODIPine TAB* 5 MG PO SCH (10:10)
[2017-04-11] MEDS: Phenytoin CAP(*) 100 MG CAP.ER PO SCH (10:10)
[2017-04-11] MEDS: Aspirin Low Dose CHEW TAB* 81 MG PO SCH (10:10)
[2017-04-11] MEDS: Sertraline* 100 MG TAB PO SCH (10:10)
[2017-04-11] MEDS: Phenytoin IV(*) 100 MG in NS 0.9% 50 ML* 18 ML IV SCH ×2 (12:00→22:46)
[2017-04-11] MEDS: D5W 1000 ML BAG* 1,000 ML IV SCH (14:51)
--- NOTE | 2017-04-11 15:30 | CONSULT ---
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 She has global aphasia, or at least very significant dysarthria, but is alert. She has had difficulty with taking adequate p.o. She has additional diagnoses of seizure disorder, LBP, B12 deficiency, depression, urolithiais. She was brought to the ER from [facility] , with fever and lethargy, and a sodium of 157. She has dehydration due to her inability to swallow. She had a swallow evaluation this morning that demonstrated she was unable to manage to negotiate any bolus for swallowing, and the food/fluid leaked from the right side of her mouth. Her POA tells me that she was already refusing food last week when he visited her at [facility]. She is being rehydrated with IV fluid (D5W) at this time. There is a MOLST form from February 2017 that specifies DNR and DNI, but unfortunately feeding tubes and IV fluids were not discussed at that time. I spoke to the patient and she herself very clearly indicated she did not want a feeding tube placed. This decision was reiterated by her daughter Pepper [phone]) and her POA Johnson Prescott ([phone]) with whom I spoke at length. Lab Values: Abnormal Lab Results 04/10/17 04/10/17 04/11/17 15:01 23:00 05:45 WBC 5.5 RBC 4.06 Hgb 12.6 Hct 38 MCV 93 MCH 31 MCHC 33 RDW 14 Plt Count 100 L MPV 11 H Neut % (Auto) 56.5 Lymph % (Auto) 30.2 [place] % (Auto) 12.7 H Eos % (Auto) 0.1 Baso % (Auto) 0.5 Absolute Neuts (auto) 3.1 Absolute Lymphs (auto) 1.7 Absolute Monos (auto) 0.7 Absolute Eos (auto) 0 Absolute Basos (auto) 0 Absolute Nucleated RBC 0.01 Nucleated RBC % 0.3 Sodium 159 H* 156 H* Potassium 3.6 3.2 L Chloride 121 H 119 H Carbon Dioxide 32 30 Anion Gap 6 7 BUN 28 H Creatinine 0.73 Est GFR ( Amer) 97.7 Est GFR (Non-Af Amer) 76.0 BUN/Creatinine Ratio 38.4 H Glucose 115 H Calcium 8.8 04/11/17 05:45 WBC RBC Hgb Hct MCV MCH MCHC RDW Plt Count MPV Neut % (Auto) Lymph % (Auto) [place] % (Auto) Eos % (Auto) Baso % (Auto) Absolute Neuts (auto) Absolute Lymphs (auto) Absolute Monos (auto) Absolute Eos (auto) Absolute Basos (auto) Absolute Nucleated RBC Nucleated RBC % Sodium 154 H Potassium 3.1 L Chloride 118 H Carbon Dioxide 30 Anion Gap 6 BUN 19 Creatinine 0.56 Est GFR ( Amer) 132.6 Est GFR (Non-Af Amer) 103.1 BUN/Creatinine Ratio 33.9 H Glucose 136 H Calcium 8.8 Laboratory Last Values WBC 5.5 10^3/ul (3.5-10.8) 04/11/17 05:45 RBC 4.06 10^6/ul (4.0-5.4) 04/11/17 05:45 Hgb 12.6 g/dl (12.0-16.0) 04/11/17 05:45 Hct 38 % (35-47) 04/11/17 05:45 MCV 93 fL (80-97) 04/11/17 05:45 MCH 31 pg (27-31) 04/11/17 05:45 MCHC 33 g/dl (31-36) 04/11/17 05:45 RDW 14 % (10.5-15) 04/11/17 05:45 Plt Count 100 10^3/ul (150-450) L 04/11/17 05:45 MPV 11 um3 (7.4-10.4) H 04/11/17 05:45 Neut % (Auto) 56.5 % (38-83) 04/11/17 05:45 Lymph % (Auto) 30.2 % (25-47) 04/11/17 05:45 [place] % (Auto) 12.7 % (1-9) H 04/11/17 05:45 Eos % (Auto) 0.1 % (0-6) 04/11/17 05:45 Baso % (Auto) 0.5 % (0-2) 04/11/17 05:45 Absolute Neuts (auto) 3.1 10^3/ul (1.5-7.7) 04/11/17 05:45 Absolute Lymphs (auto) 1.7 10^3/ul (1.0-4.8) 04/11/17 05:45 Absolute Monos (auto) 0.7 10^3/ul (0-0.8) 04/11/17 05:45 Absolute Eos (auto) 0 10^3/ul (0-0.6) 04/11/17 05:45 Absolute Basos (auto) 0 10^3/ul (0-0.2) 04/11/17 05:45 Absolute Nucleated RBC 0.01 10^3/ul 04/11/17 05:45 Nucleated RBC % 0.3 04/11/17 05:45 Sodium 154 mmol/L (133-145) H 04/11/17 05:45 Potassium 3.1 mmol/L (3.5-5.0) L 04/11/17 05:45 Chloride 118 mmol/L (101-111) H 04/11/17 05:45 Carbon Dioxide 30 mmol/L (22-32) 04/11/17 05:45 Anion Gap 6 mmol/L (2-11) 04/11/17 05:45 BUN 19 mg/dL (6-24) 04/11/17 05:45 Creatinine 0.56 mg/dL (0.51-0.95) 04/11/17 05:45 Est GFR ( Amer) 132.6 (>60) 04/11/17 05:45 Est GFR (Non-Af Amer) 103.1 (>60) 04/11/17 05:45 BUN/Creatinine Ratio 33.9 (8-20) H 04/11/17 05:45 Glucose 136 mg/dL (70-100) H 04/11/17 05:45 Lactic Acid 0.8 mmol/L (0.5-2.0) 04/09/17 23:50 Calcium 8.8 mg/dL (8.6-10.3) 04/11/17 05:45 Magnesium 2.0 mg/dL (1.9-2.7) 04/09/17 23:50 Total Bilirubin 0.40 mg/dL (0.2-1.0) 04/09/17 23:50 AST 12 U/L (13-39) L 04/09/17 23:50 ALT 6 U/L (7-52) L 04/09/17 23:50 Alkaline Phosphatase 43 U/L (34-104) 04/09/17 23:50 Total Protein 5.7 g/dL (6.4-8.9) L 04/09/17 23:50 Albumin 3.8 g/dL (3.2-5.2) 04/09/17 23:50 Globulin 1.9 g/dL (2-4) L 04/09/17 23:50 Albumin/Globulin Ratio 2.0 (1-3) 04/09/17 23:50 Urine Color Yellow 04/10/17 01:15 Urine Appearance Cloudy 04/10/17 01:15 Urine pH 5.0 (5-9) 04/10/17 01:15 Ur Specific [place] 1.018 (1.010-1.030) 04/10/17 01:15 Urine Protein 1+(30 mg/dl) (Negative) H 04/10/17 01:15 Urine Ketones 1+ (Negative) H 04/10/17 01:15 Urine Blood 1+ (Negative) H 04/10/17 01:15 Urine Nitrate Negative (Negative) 04/10/17 01:15 Urine Bilirubin Negative (Negative) 04/10/17 01:15 Urine Urobilinogen Positive (Negative) H 04/10/17 01:15 Ur Leukocyte Esterase 2+ (Negative) H 04/10/17 01:15 Urine WBC (Auto) 3+(>20/hpf) (Absent) H 04/10/17 01:15 Urine RBC (Auto) 3+(>10/hpf) (Absent) H 04/10/17 01:15 Ur Squamous Epith Cells Present (Absent) H 04/10/17 01:15 Urine Bacteria Absent (Absent) 04/10/17 01:15 Hyaline Casts Present (Absent) H 04/10/17 01:15 Urine Yeast Present (Absent) H 04/10/17 01:15 Urine Glucose Negative (Negative) 04/10/17 01:15 Influenza A (Rapid) Negative (Negative) 04/10/17 02:22 Influenza B (Rapid) Negative (Negative) 04/10/17 02:22 - Objective Active Medications: Acetaminophen (Tylenol Supp*) 650 mg [place] Q6H PRN PRN Reason: FEVER/PAIN Amlodipine Besylate (Norvasc Tab*) 5 mg PO DAILY [facility] Last Admin: 04/11/17 10:10 Dose: Not Given Aspirin (Aspirin Low Dose Tab*) 81 mg PO DAILY [facility] Last Admin: 04/11/17 10:10 Dose: Not Given Atorvastatin Calcium (Lipitor*) 40 mg PO 1700 [facility] Last Admin: 04/10/17 18:42 Dose: Not Given Clonazepam (Klonopin Tab(*)) 1 mg PO BID [facility] Last Admin: 04/11/17 10:10 Dose: Not Given Heparin Sodium (Porcine) (Heparin Vial(*)) 5,000 units SUBCUT Q8HR [facility] Last Admin: 04/11/17 13:48 Dose: 5,000 units Sodium Chloride (Ns 0.9% 1000 Ml*) 1,000 mls @ 100 mls/hr IV PER RATE [facility] Last Admin: 04/11/17 09:30 Dose: 100 mls/hr Ciprofloxacin 400 mg/ Dextrose 200 mls @ 200 mls/hr IVPB Q12H [facility] Last Admin: 04/11/17 06:30 Dose: 200 mls/hr Dextrose (D5w 1000 Ml Bag*) 1,000 mls @ 75 mls/hr IV PER RATE [facility] Last Admin: 04/11/17 14:51 Dose: 75 mls/hr Phenytoin Sodium 100 mg/ (Sodium Chloride) 20 mls @ 40 mls/hr IV Q12H [facility] Last Admin: 04/11/17 12:00 Dose: 40 mls/hr Ondansetron HCl (Zofran Inj*) 4 mg IV Q6H PRN PRN Reason: NAUSEA Pantoprazole Sodium (Protonix Iv*) 40 mg IV DAILY [facility] Last Admin: 04/11/17 09:31 Dose: 40 mg Sertraline HCl (Zoloft*) 100 mg PO 0900 [facility] Last Admin: 04/11/17 10:10 Dose: Not Given Vital Signs: Vital Signs: Temp Pulse Resp BP Pulse Ox 98.2 F 88 13 155/76 99 04/11/17 11:41 04/11/17 06:45 04/11/17 07:00 04/11/17 06:45 04/11/17 06:45 Patient Weight: Weight 126 lb 15.78 oz Intake and Output: Intake & Output 04/09/17 04/10/17 04/11/17 04/12/17 06:59 06:59 06:59 06:59 Intake Total 179 2022 Output Total 60 690 250 Balance 119 1333 -250 Weight 115 lb 4.828 oz 126 lb 15.78 oz Intake: IV Fluids 179 2022 ABX - CIPROFLOXACIN 216 D5W 985 NS (0.9%) 179 822 Output: Carr 60 690 250 ADLs: Meal Record Start: 04/10/17 03: 39 Freq: 09,13,18 Status: Active Protocol: Document 04/10/17 09:00 [id number] (Rec: 04/10/17 13:39 [id number] ICU-C16) Document 04/10/17 13:00 [id number] (Rec: 04/10/17 13:39 [id number] ICU-C16) Document 04/10/17 18:00 [id number] (Rec: 04/10/17 18:05 [id number] ICU-C16) Document 04/11/17 09:00 [id number] (Rec: 04/11/17 09:33 [id number] ICU-C11) Document 04/11/17 13:00 [id number] (Rec: 04/11/17 13:40 [id number] ICU-C11) Intake and Output Start: 04/10/17 03: 39 Freq: 06,14,22 Status: Active Protocol: Document 04/10/17 05:14 [id number] (Rec: 04/10/17 05:14 [id number] ICU-C20) Document 04/10/17 14:00 [id number] (Rec: 04/10/17 14:47 [id number] ICU-M01) Document 04/10/17 21:31 [id number] (Rec: 04/10/17 21:31 [id number] ICU-C20) Document 04/11/17 05:36 [id number] (Rec: 04/11/17 05:36 [id number] ICU-C20) Document 04/11/17 13:40 [id number] (Rec: 04/11/17 13:40 [id number] ICU-C11) General Impression: Alert but aphasic elderly woman with right facial droop, unable to follow commands. Head: Symmetrical Ears/Nose/Mouth/Throat: Clear Oropharnyx Cardiovascular: NL Sounds; No Murmurs; No JVD, RRR, No Edema Respiratory: Symmetrical Chest Expansion and Respiratory Effort Abdominal: NL Sounds; No Tenderness; No Distention Extremities: No Clubbing, Cyanosis Neurological: - - alert, slowly answers questions with marked dysarthria, significant R facial droop - Assessment Assessment: This patient suffered a major CVA and has had minimal neurologic recovery. She is unable to speak intelligibly and, most significantly, unable to swallow. She does not want a feeding tube. She opts to be kept comfortable and wants to return to [facility] with comfort measures. She understands that her prognosis is quite limited and she is comfortable with that. She is appropriate for hospice services with a primary diagnosis of CVA and a secondary of dysphagia. She is likely to become dehydrated again after discharge to her SNF. Her daughter reports that her father, Mikael Adams, comfortably on hospice services last year and she would like the same level of comfort for her mother. Thank you for requesting palliative consultation. - Plan Consult Plan (MU): Hospice - Time On Unit Date of Evaluation: 04/11/17 Hospice Consult Time in: 14:30 Hospice Consult Time Out: 15:40 Hospice Consult Time Total: 70
[2017-04-11 17:58] LABS: Potassium 3.3 mmol/L (3.5-5.0)
[2017-04-11] MEDS: Atorvastatin* 40 MG TAB PO SCH (19:15)
[2017-04-11] MEDS ORDERED: Phenytoin IV(*) 50 MG/ML 2 ML VIAL (100 MG) ONE (22:37)
[2017-04-12] MEDS: Heparin VIAL(*) 5000 UNITS/ML VIAL (FIVE THOUSAND) SUBCUT SCH (06:39)
[2017-04-12] MEDS: Ciprofloxacin IV(*) 400 MG in D5W 250 ML BAG* 160 ML IVPB SCH ×2 (06:39→18:14)
[2017-04-12 06:50] LABS: Hematocrit 31 % (35-47); Hemoglobin 10.5 g/dl (12.0-16.0); Mean Corpuscular HGB Conc 34 g/dl (31-36); Mean Corpuscular Hemoglobin 31 pg (27-31); Mean Corpuscular Volume 93 fL (80-97); Mean Platelet Volume 10 um3 (7.4-10.4); Red Blood Count 3.34 10^6/ul (4.0-5.4); Red Cell Distribution Width 14 % (10.5-15); White Blood Count 3.4 10^3/ul (3.5-10.8)
[2017-04-12 06:51] LABS: Comments Flag Yes
[2017-04-12 06:52] LABS: Add Diff/Slide Review? Slide Review Added
[2017-04-12 07:04] LABS: BUN/Creatinine Ratio 20.5 (8-20); EGFR African American 201.4 (>60); EGFR Non-African American 156.6 (>60)
[2017-04-12 07:53] LABS: Calcium 8.1 mg/dL (8.6-10.3)
[2017-04-12] MEDS: amLODIPine TAB* 5 MG PO SCH (07:54)
[2017-04-12] MEDS: Aspirin Low Dose CHEW TAB* 81 MG PO SCH (07:54)
[2017-04-12] MEDS: clonazePAM TAB(*) 1 MG PO SCH ×2 (07:54→22:08)
[2017-04-12] MEDS: Sertraline* 100 MG TAB PO SCH (07:55)
[2017-04-12] MEDS: Pantoprazole IV* 40 MG IV SCH (08:31)
[2017-04-12] MEDS: D5W 1000 ML BAG* 1,000 ML IV SCH (08:31)
--- NOTE | 2017-04-12 09:03 | PN ---
Subjective Date of Service: 04/12/17 Interval History: Pt is feeling ok today. She denies any pain or SOB. Objective Active Medications: Acetaminophen (Tylenol Supp*) 650 mg [place] Q6H PRN PRN Reason: FEVER/PAIN Amlodipine Besylate (Norvasc Tab*) 5 mg PO DAILY [facility] Last Admin: 04/12/17 07:54 Dose: Not Given Aspirin (Aspirin Low Dose Tab*) 81 mg PO DAILY [facility] Last Admin: 04/12/17 07:54 Dose: Not Given Atorvastatin Calcium (Lipitor*) 40 mg PO 1700 [facility] Last Admin: 04/11/17 19:15 Dose: Not Given Clonazepam (Klonopin Tab(*)) 1 mg PO BID [facility] Last Admin: 04/12/17 07:54 Dose: Not Given Heparin Sodium (Porcine) (Heparin Vial(*)) 5,000 units SUBCUT Q8HR [facility] Last Admin: 04/12/17 06:39 Dose: 5,000 units Sodium Chloride (Ns 0.9% 1000 Ml*) 1,000 mls @ 100 mls/hr IV PER RATE [facility] Last Admin: 04/11/17 22:52 Dose: 100 mls/hr Ciprofloxacin 400 mg/ Dextrose 200 mls @ 200 mls/hr IVPB Q12H [facility] Last Admin: 04/12/17 06:39 Dose: 200 mls/hr Dextrose (D5w 1000 Ml Bag*) 1,000 mls @ 75 mls/hr IV PER RATE [facility] Last Admin: 04/12/17 08:31 Dose: 75 mls/hr Phenytoin Sodium 100 mg/ (Sodium Chloride) 20 mls @ 40 mls/hr IV Q12H [facility] Last Admin: 04/11/17 22:46 Dose: 40 mls/hr Ondansetron HCl (Zofran Inj*) 4 mg IV Q6H PRN PRN Reason: NAUSEA Pantoprazole Sodium (Protonix Iv*) 40 mg IV DAILY [facility] Last Admin: 04/12/17 08:31 Dose: 40 mg Sertraline HCl (Zoloft*) 100 mg PO 0900 [facility] Last Admin: 04/12/17 07:55 Dose: Not Given Vital Signs - 8 hr 04/12/17 07:36 Temperature 98.2 F Pulse Rate 74 Respiratory 20 Rate Blood Pressure 125/61 (mmHg) O2 Sat by Pulse 98 Oximetry Oxygen Devices in Use Now: None Appearance: Eldelry female lying in bed sleeping, awakens to voice, NAD Eyes: No Scleral Icterus Ears/Nose/Mouth/Throat: Mucous Membranes Moist Respiratory: Symmetrical Chest Expansion and Respiratory Effort, Clear to Auscultation - anteriorly Cardiovascular: NL Sounds; No Murmurs; No JVD, RRR, No Edema Abdominal: NL Sounds; No Tenderness; No Distention Extremities: No Clubbing, Cyanosis Skin: No Rash or Ulcers, No Nodules or Sclerosis Neurological: - - awakens easily, then alert, speech is clearer and has more content Result Diagrams: 04/12/17 06:42 04/12/17 06:42 Additional Lab and Data: Lab Results 04/09/17 04/09/17 04/09/17 Range/Units 23:50 23:50 23:50 WBC 4.9 (3.5-10.8) 10^3/ul RBC 4.46 (4.0-5.4) 10^6/ul Hgb 13.6 (12.0-16.0) g/dl Hct 42 (35-47) % MCV 94 (80-97) fL MCH 31 (27-31) pg MCHC 32 (31-36) g/dl RDW 15 (10.5-15) % Plt Count 146 L (150-450) 10^3/ul MPV 10 (7.4-10.4) um3 Neut % (Auto) 61.9 (38-83) % Lymph % (Auto) 21.1 L (25-47) % [place] % (Auto) 16.5 H (1-9) % Eos % (Auto) 0 (0-6) % Baso % (Auto) 0.5 (0-2) % Absolute Neuts (auto) 3.0 (1.5-7.7) 10^3/ul Absolute Lymphs (auto) 1.0 (1.0-4.8) 10^3/ul Absolute Monos (auto) 0.8 (0-0.8) 10^3/ul Absolute Eos (auto) 0 (0-0.6) 10^3/ul Absolute Basos (auto) 0 (0-0.2) 10^3/ul Absolute Nucleated RBC 0 10^3/ul Nucleated RBC % 0 Sodium 157 H* (133-145) mmol/L Potassium 3.8 (3.5-5.0) mmol/L Chloride 118 H (101-111) mmol/L Carbon Dioxide 26 (22-32) mmol/L Anion Gap 13 H (2-11) mmol/L BUN 35 H (6-24) mg/dL Creatinine 1.08 H (0.51-0.95) mg/dL Est GFR ( Amer) 62.2 (>60) Est GFR (Non-Af Amer) 48.3 (>60) BUN/Creatinine Ratio 32.4 H (8-20) Glucose 138 H (70-100) mg/dL Lactic Acid 0.8 (0.5-2.0) mmol/L Calcium 8.8 (8.6-10.3) mg/dL Magnesium 2.0 (1.9-2.7) mg/dL Total Bilirubin 0.40 (0.2-1.0) mg/dL AST 12 L (13-39) U/L ALT 6 L (7-52) U/L Alkaline Phosphatase 43 (34-104) U/L Total Protein 5.7 L (6.4-8.9) g/dL Albumin 3.8 (3.2-5.2) g/dL Globulin 1.9 L (2-4) g/dL Albumin/Globulin Ratio 2.0 (1-3) Microbiology and Other Data: Microbiology 04/10/17 02:05 Nasal Screen MRSA (PCR)([facility]) - Final Nasal Mrsa Negative 04/10/17 02:05 Influenza Types A,B Antigen ([facility]) - Final Nasopharyngeal Specimen received for Influenza A/B Molecular testing Assess/Plan/Problems-Billing Ms Adams is an 86 yo F who has a 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 - Patient Problems (1) Hypernatremia Current Visit: Yes Status: Acute Code(s): E87.0 - HYPEROSMOLALITY AND HYPERNATREMIA SNOMED Code(s): 12628825 Comment: Hypernatremia has finally improved. Will continue IVF hydration for now. Repeat swallow eval today as she seems to be slightly improved from yesterday. I suspect she will still not be able to maintain her oral intake and recommend going back to [facility] with hospice to be signed on in the near future. (2) Dysphagia Current Visit: Yes Status: Acute Code(s): R13.10 - DYSPHAGIA, UNSPECIFIED SNOMED Code(s): 27456553 Comment: Repeat swallow eval today but I suspect she will not be able to maintain enough oral intake to keep her Na level acceptable. She does not want a PEG tube. Likely back to [facility] today then to be signed on to hospice. (3) Thrombocytopenia Current Visit: Yes Status: Acute Code(s): D69.6 - THROMBOCYTOPENIA, UNSPECIFIED SNOMED Code(s): 312799451 Comment: Stop heparin as HIT is a high likelihood with plalete count dropping by >1/2. As she will likely be going back to [facility] with hospice will not send HIT Ab. (4) UTI (urinary tract infection) Current Visit: Yes Status: Acute Comment: Continue cipro for now but I am not convinced she is infected by more likely colonized. (5) HTN (hypertension) Current Visit: Yes Status: Acute Code(s): I10 - ESSENTIAL (PRIMARY) HYPERTENSION SNOMED Code(s): 87712895 Comment: Will not treat as pt is not able to swallow. (6) Depression Current Visit: Yes Status: Acute Code(s): F32.9 - MAJOR DEPRESSIVE DISORDER , SINGLE EPISODE, UNSPECIFIED SNOMED Code(s): 79836614 Comment: All meds on hold as pt not able to swallow. (7) DVT prophylaxis Current Visit: Yes Status: Acute Code(s): FZF2196 - SNOMED Code(s): 217777066 Comment: SCDs (8) DNR (do not resuscitate) Current Visit: Yes Status: Acute
[2017-04-12] MEDS: Phenytoin IV(*) 100 MG in NS 0.9% 50 ML* 18 ML IV SCH ×2 (10:57→22:18)
[2017-04-12] MEDS: NS 0.9% 1000 ML* 1,000 ML IV SCH (11:00)
[2017-04-12] MEDS: Atorvastatin* 40 MG TAB PO SCH (18:13)
[2017-04-12] MEDS ORDERED: Phenytoin IV(*) 50 MG/ML 2 ML VIAL (100 MG) ONE (22:00)
--- NOTE | 2017-04-12 23:19 | EEG ---
ELECTROENCEPHALOGRAPHY: DATE OF STUDY: 04/11/17 - ROOM #447 LOCATION: The patient is an inpatient. ORDERING PHYSICIAN: Dr. Whipple. CLINICAL PROBLEM: This is an 86-year-old woman, who is admitted on 04/10/17 for altered mental status. She resides at [facility] and has a past medical history of stroke in February as well as a seizure disorder. She was stated to be febrile, lethargic, and having increased difficulty swallowing. EEG is requested to evaluate for epileptiform abnormalities. MEDICATIONS: 1. Zofran. 2. Tylenol. 3. Lipitor. 4. Heparin. 5. Zoloft. 6. Dilantin. 7. Protonix. 8. Klonopin. 9. Aspirin 81 mg. 10. Norvasc. REPORT: The most notable feature of the interictal EEG is the presence of nearly continuous, polymorphic mixed frequency slowing in the left hemisphere, which primarily affects the left temporal region but also affects the left parasagittal region. This slowing is in the range of 2 to 7 Hz. There are occasional sharp waveforms noted in the left temporal region, which are not epileptiform in nature. There is frequent theta activity in the left temporal region but there is no evolution in frequency or spatial location to suggest an ictal pattern. Otherwise, the waking background showed appropriate organization with clearly defined anterior to posterior voltage and frequency gradients. There is a well - defined but slow posterior dominant rhythm of 8 Hz, which is symmetrical. Anteriorly, there is an expected pattern of lower voltage, irregular, mixed faster frequencies. The patient has right arm twitching intermittently throughout the recording, there are no clear ictal patterns associated with this twitching. Throughout the recording, there are no definitive epileptiform abnormalities. CLINICAL IMPRESSION: This is an abnormal waking EEG due to the presence of continuous slowing in the left hemisphere and in particular in the left temporal region as well as a slow posterior dominant rhythm. These findings are suggestive of a mild, nonspecific, diffuse encephalopathy with superimposed focal dysfunction in the left hemisphere and in particular in the left temporal region. There are no epileptiform abnormalities or ictal pattern noted. The patient had intermittent twitching in the right arm during the study which did not have any associated ictal abnormalities. It should be noted, however, that focal motor seizures sometimes do not have a scalp EEG correlate and clinical correlation is recommended. [id number]/[facility] #: [id number] [facility]
--- NOTE | 2017-04-13 02:16 | DS ---
CC: Dr. Alford at [facility] * DISCHARGE SUMMARY: DATE OF ADMISSION: 04/10/17 DATE OF DISCHARGE: 04/13/17 (this is being dictated in advance). PRINCIPAL DIAGNOSIS: Hypernatremia secondary to marked dysphagia following stroke in February 2017. SECONDARY DIAGNOSES: 1. Hypertension. 2. Seizure disorder. 3. Depression. 4. Chronic pain. 5. B12 deficiency. DISCHARGE MEDICATIONS: 1. Vitamin B12 500 mcg p.o. daily. 2. Vitamin D 1000 units p.o. daily. 3. MiraLAX 17 g p.o. q.12 hours p.r.n. constipation. 4. Zofran 8 mg p.o. q.8 hours p.r.n. nausea. 5. MOM 30 mL p.o. q.4 hours p.r.n. constipation. 6. Tylenol 650 mg p.o. 4 times daily p.r.n. pain. 7. Phenytoin 100 mg p.o. b.i.d. 8. Clonazepam 1 mg p.o. b.i.d. 9. Sertraline 100 mg p.o. daily. 10. Olanzapine 2.5 mg p.o. q.h.s. 11. Lipitor 40 mg p.o. daily. 12. Folic acid 1 mg p.o. daily. 13. Aspirin 81 mg p.o. daily. 14. Amlodipine 5 mg p.o. daily. HOSPITAL COURSE: Ms. Adams is an 86-year-old female, who at the end of May sustained a stroke that left her with severe dysarthria and dysphagia and was discharged to [facility]. The patient had been residing at [facility] and reportedly not been eating or drinking well. The patient was sent to the hospital on 04/09/17 for complaints of altered mental status. The patient was found to have marked hypernatremia with a sodium of 157 as well as a possible urinary tract infection. The patient was admitted and started on aggressive IV fluid hydration for this. The patient was initially started on normal saline due to the relative hypernatremia secondary to pure volume depletion. She had no improvement in her sodium level with just normal saline alone and therefore D5W was added. The patient's sodium level has corrected to 145. The patient initially was unable to participate with swallow eval. Each time fluid bolus was attempted, it just fell out of her mouth. At that point, the patient's sodium had not corrected completely back to normal. Today, , the patient was more alert and her speech was clear. Another attempt with swallow eval was undertaken. At this point, the patient has been cleared for a pureed diet with honey thickened liquids. I believe this is the same diet she was discharged to [facility] on previously and despite having a diet ordered for her she did become hypernatremic. My suspicion is that the patient is not able to take an enough food or liquid to maintain her sodium level. The patient was seen in consultation by Dr. Garcia from hospice and it was felt that the patient is hospice eligible. A referral has been made for hospice. The plan will be to get the patient back to [facility] tomorrow, 04/13/17 to be then signed on the hospice. The patient can eat and drink, though will need a pureed diet with honey thick liquids. On admission, there was concern for urinary tract infection. The patient's urine did grow E. coli and Enterococcus faecalis; however, each of these were less than 100,000 colony forming units. The patient will complete a course of ciprofloxacin on the morning of discharge which will have been 3 days of therapy. I am not completely convinced; however, that this represents a true infection or just colonization. FOLLOWUP CONCERNS: The patient is being discharged back to [facility] on . ACTIVITY: Activity level is as tolerated. DIET: Regular pureed with honey thick liquids. CONDITION ON DISCHARGE: Guarded, but stable. TIME SPENT: Thirty-five minutes were spent discharging this patient. [id number]/[facility] #: [id number] [facility]
[2017-04-13] MEDS: Ciprofloxacin IV(*) 400 MG in D5W 250 ML BAG* 160 ML IVPB SCH (05:16)
[2017-04-13 05:57] LABS: Hematocrit 32 % (35-47); Hemoglobin 10.6 g/dl (12.0-16.0); Mean Corpuscular HGB Conc 34 g/dl (31-36); Mean Corpuscular Hemoglobin 31 pg (27-31); Mean Corpuscular Volume 92 fL (80-97); Mean Platelet Volume 11 um3 (7.4-10.4); Red Blood Count 3.43 10^6/ul (4.0-5.4); Red Cell Distribution Width 14 % (10.5-15); White Blood Count 3.1 10^3/ul (3.5-10.8)
[2017-04-13 06:03] LABS: Comments Flag Yes
[2017-04-13 06:04] LABS: Add Diff/Slide Review? Slide Review Added
[2017-04-13 08:24] VITALS: BP 140/68
== END 2017-04-13 08:21 | DRG 641 ==
LOC: ED 23:14 → ICU 04-10 01:31 → MEDTELE 04-11 18:34
PROVIDERS: ADMIT Hospitalist; ATTEND Internal Medicine
PROC: 4A00X4Z Measurement of Central Nervous Electrical Activity, External Approach (ICD-10-PCS; principal; 2017-04-11)
DX: E87.0 Hyperosmolality and hypernatremia (principal); D69.6 Thrombocytopenia, unspecified; E86.0 Dehydration; N39.0 Urinary tract infection, site not specified; R13.10 Dysphagia, unspecified; G40.909 Epilepsy, unspecified, not intractable, without status epilepticus; G89.29 Other chronic pain; E53.8 Deficiency of other specified B group vitamins; B96.20 Unspecified Escherichia coli [E. coli] as the cause of diseases classified elsewhere; B95.2 Enterococcus as the cause of diseases classified elsewhere; M54.5 Low back pain; I10 Essential (primary) hypertension; F32.9 Major depressive disorder, single episode, unspecified; Z96.653 Presence of artificial knee joint, bilateral; Z66 Do not resuscitate; E78.00 Pure hypercholesterolemia, unspecified; M19.90 Unspecified osteoarthritis, unspecified site; M81.0 Age-related osteoporosis without current pathological fracture; G43.909 Migraine, unspecified, not intractable, without status migrainosus; I69.391 Dysphagia following cerebral infarction; Z79.82 Long term (current) use of aspirin; I69.322 Dysarthria following cerebral infarction; Z87.442 Personal history of urinary calculi; Z88.0 Allergy status to penicillin; Z88.5 Allergy status to narcotic agent; Z88.8 Allergy status to other drugs, medicaments and biological substances; Z90.710 Acquired absence of both cervix and uterus
CPT/HCPCS: 36415; 70450; 71010; 80048; 80051; 80053; 81003; 81015; 83605; 83735; 85025; 87040; 87076; 87077; 87086; 87186; 87205; 87502; 87641; 93005; 93970; 95816; A9270-GY; J0744; J1165; J1644; J3480

== ENCOUNTER 2018-10-29 11:04 | Emergency (ER) | payer MEDICARE, MEDICAID ==
--- NOTE | 2018-10-29 11:13 | ED ---
Neurological HPI - HPI Summary HPI Summary: Time seen by provider: 1110. LEVEL 5 CAVEAT due to hx of multiple strokes, nonverbal. The patient is an 88 y/o F arriving by ambulance to [facility] from [facility] with a chief complaint of decreased responsiveness and increased lethargy with possible increased right-sided weakness starting this morning. Per [facility] report, the patient is not verbally responsive and is less interactive, which is a change from yesterday. She does follow with eye contact. It is also reported that the patient seems to have increased weakness on the right side, but it may be secondary to previous multiple strokes. Hx of CVAs, seizures, HTN. Nonsmoker, no EtOH, no substance use. - History of Current Complaint Stated Complaint: AMS PER EMS Time Seen by Provider: 10/29/18 11:05 Hx Obtained From: Other: - [facility] staff Hx From Patient Unobtainable Due To: Altered Mental Status - patient exhibits decreased responsiveness Onset/Duration: Started hours ago, Still Present Pain Scale Used: 0-10 Numeric Character: Responsiveness, Other: - lethargic Aggravating: Unknown Alleviating: Unknown Associated Signs and Symptoms: Positive: Weakness - possible right-sided - Additional Pertinent History Primary Care Physician: RENEE - Allergy/Home Medications Allergies/Adverse Reactions: Allergies Allergy/AdvReac Type Severity Reaction Status Date / Time MS Penicillins [PCN] Allergy Severe anaph Verified 10/29/18 14:39 MS Oxybutynin [Oxybutynin] Allergy Unknown Verified 10/29/18 14:39 Reaction Details MS Zolpidem [From Ambien] Allergy Unknown Verified 10/29/18 14:39 Reaction Details MS Oxycodone [Oxycodone] AdvReac Intermediate Nausea Verified 10/29/18 14:39 MS Rofecoxib [From Vioxx] AdvReac Intermediate Edema Verified 10/29/18 14:39 MS Solifenacin AdvReac Intermediate See Comment Verified 10/29/18 14:39 [From Vesicare] Home Medications: Home Medications Acetaminophen [Acetaminophen Extra Strength] 1,000 mg PO TID PRN 10/29/18 [ History Confirmed 10/29/18] Bisacodyl SUPP* [Dulcolax Supp*] [address] DAILY PRN 10/29/18 [History Confirmed 10/29/18] Eyelid Cleanser Combination 3 [Ocusoft Lid Scrub Plus] 1 each TOPICAL BID [History Confirmed 10/29/18] Lidocaine [Aspercreme Lidocaine Max] 4 % TOPICAL DAILY 10/29/18 [History Confirmed 10/29/18] LoraTADine TAB(NF) [Claritin 10 MG TAB(NF)] 10 mg PO DAILY 10/29/18 [History Confirmed 10/29/18] Magnesium Hydroxide LIQ* [Milk of Magnesia LIQ*] 30 ml PO Q4HR PRN 10/29/18 [ History Confirmed 10/29/18] Menthol/Zinc Oxide [Calmoseptine] 1 oin TOPICAL BID 10/29/18 [History Confirmed 10/29/18] Morphine ORAL.CONC BULK BOT* [Roxanol ORAL.CONC Bottle*] 5 mg PO Q4HR PRN [History Confirmed 10/29/18] amLODIPine TAB* [Norvasc 5 mg TAB*] 2.5 mg PO DAILY 10/29/18 [History Confirmed 10/29/18] PMH/Surg Hx/FS Hx/Imm Hx Endocrine/Hematology History: Denies: Hx Anticoagulant Therapy, Hx Blood Disorders, Hx Blood Transfusions, Hx Bone Marrow Disease, Hx Diabetes, Hx Systemic Lupus Erythematosus, Hx Sickle Cell Disease, Hx Thyroid Disease, Hx Anemia, Hx Unexplained Bleeding, Other Endocrine/Hematological Disorders Cardiovascular History: Reports: Hx Hypertension Denies: Hx Angina, Hx Angioplasty, Hx Auto Implanted Cardiovert Defib, Hx Cardiac Arrest, Hx Cardiomegaly, Hx Congenital Heart Disease, Hx Congestive Heart Failure, Hx Coronary Artery Disease, Hx Deep Vein Thrombosis, Hx Hypercholesterolemia, Hx Hypotension, Hx Pacemaker/ICD, Hx Peripheral Vascular Disease, Hx Rheumatic Fever, Hx Syncope, Hx Valvular Heart Disease, Other Cardiovascular Problems/Disorders Respiratory History: Denies: Hx Asthma, Hx Chronic Bronchitis, Hx Chronic Obstructive Pulmonary Disease (COPD), Hx Cystic Fibrosis, Hx Lung Cancer, Hx Pleural Effusion, Hx Pneumonia, Hx Pulmonary Edema, Hx Pulmonary Embolism, Hx Seasonal Allergies, Hx Sleep Apnea, Other Respiratory Problems/Disorders GI History: Denies: Hx Cirrhosis, Hx Crohn's Disease, Hx Diverticulosis, Hx Gall Bladder Disease, Hx Gastroesophageal Reflux Disease, Hx Gastrointestinal Bleed, Hx Hiatal Hernia, Hx Irritable Bowel, Hx Jaundice, Hx Obstructive Bowel, Hx Ileostomy, Hx Pyloric Stenosis, Hx Ulcer, Other GI Disorders History: Reports: Hx Kidney Stones Denies: Hx Acute Renal Failure, Hx Benign Prostatic Hyperplasia, Hx Chronic Renal Failure, Hx Dialysis, Hx Kidney Infection, Other Problems/Disorders Musculoskeletal History: Reports: Hx Arthritis, Hx Back Problems, Hx Osteoporosis, Other Musculoskeletal History Denies: Hx Bursitis, Hx Congenital Bone Abnormalities, Hx Fibromyalgia, Hx Gout, Hx Orthopedic Injury, Hx Scoliosis, Hx Tendonitis Sensory History: Denies: Hx Cataracts, Hx Contacts or Glasses, Hx Eye Injury, Hx Eye Prosthesis, Hx Glaucoma, Hx Macular Degeneration, Hx Vision Problem, Hx Deafness , Hx Hearing Aid, Hx Hearing Problem, Other Sensory Impairments Opthamlomology History: Denies: Hx Cataracts, Hx Contacts or Glasses, Hx Eye Injury, Hx Eye Prosthesis, Hx Glaucoma, Hx Macular Degeneration, Hx Vision Problem, Other Sensory Impairments Neurological History: Reports: Hx CVA, Hx Migraine, Hx Seizures, Other Neuro Impairments/Disorders - hx of concussion at 19yrs old Denies: Hx Dementia, Hx Developmental Delay, Hx Headaches, Hx Spinal Cord Injury, Hx Transient Ischemic Attacks (TIA) Psychiatric History: Reports: Hx Depression, Hx Community Mental Health Tx Denies: Hx Anxiety, Hx Attention Deficit Hyperactivity Disorder, Hx Eating Disorder, Hx Panic Disorder, Hx Post Traumatic Stress Disorder, Hx Inpatient Treatment, Hx Schizophrenia, Hx Bipolar Disorder, Hx Suicide Attempt, Hx Substance Abuse, Other Psychiatric Issues/Disorders - Cancer History Hx Chemotherapy: No Hx Radiation Therapy: No - Surgical History Surgery Procedure, Year, and Place: BILAT KNEES, appy, hysterectomy,tonsilectomy Hx Anesthesia Reactions: No - Immunization History Date of Tetanus Vaccine: unknown Date of Influenza Vaccine: unknown Infectious Disease History: Denies: Hx Clostridium Difficile, Hx Hepatitis, Hx Human Immunodeficiency Virus (HIV), Hx of Known/Suspected MRSA, Hx Shingles, Hx Tuberculosis - Family History Known Family History: Positive: Hypertension - Social History Alcohol Use: None Hx Substance Use: No Substance Use Type: Reports: None, Prescribed Hx Tobacco Use: No Smoking Status (MU): Never Smoked Tobacco Length of Time of Smoking/Using Tobacco: 15 years Have You Smoked in the Last Year: No Review of Systems Positive: Other - lethargic Neurological: Other - decreased responsiveness Positive: Weakness - possible right-sided All Other Systems Reviewed And Are Negative: No - Comments Additional Review of Systems Comments: LEVEL 5 CAVEAT Physical Exam - Summary Physical Exam Summary: VITAL SIGNS: Reviewed. GENERAL: Patient is an elderly but well nourished female who is lying comfortable in the stretcher. Patient is not in any acute respiratory distress. She has a facial droop secondary to multiple previous strokes. Nonverbal. HEAD AND FACE: No signs of trauma. No ecchymosis, hematomas or skull depressions. No sinus tenderness. EYES: PERRLA, EOMI x 2, No injected conjunctiva, no nystagmus. EARS: Hearing grossly intact. Ear canals and tympanic membranes are within normal limits. MOUTH: Oropharynx within normal limits. NECK: Supple, trachea is midline, no adenopathy, no JVD, no carotid bruit, no c- spine tenderness, neck with full ROM. CHEST: Symmetric, no tenderness at palpation. LUNGS: Clear to auscultation bilaterally. No wheezing or crackles. CVS: Regular rate and rhythm, S1 and S2 present, no murmurs or gallops appreciated. ABDOMEN: Soft, non-tender. No signs of distention. No rebound, no guarding, and no masses palpated. Positive bowel sounds. EXTREMITIES: FROM in all major joints, no edema, no cyanosis or clubbing. NEURO: Alert. She has a facial droop secondary to multiple previous strokes. Nonverbal. SKIN: Dry and warm. Triage Information Reviewed: Yes Vital Signs Reviewed: Yes Completion Of Physical Exam Limited Due To: Level 5 Diagnostics - Laboratory Result Diagrams: 10/29/18 11:31 10/29/18 11:31 Lab Statement: Any lab studies that have been ordered have been reviewed, and results considered in the medical decision making process. - Radiology CXR Radiology Interpretation Completed By: Radiologist Summary of Radiographic Findings: No active cardiopulmonary disease. ED physician has reviewed this radiology report. - EKG 1130 Cardiac Rate: NL - 64 BPM EKG Rhythm: Sinus Rhythm Summary of EKG Findings: No ST elevations. Re-Evaluation - Re-Evaluation First Eval Re-Evaluation Time: 13:50 Change: Improved Comment: The patient is back to baseline. She is able to be discharged back to [facility]. Course/Dx - Course Assessment/Plan: LEVEL 5 CAVEAT due to hx of multiple strokes, nonverbal. The patient is an 88 y/o F arriving by ambulance to [facility] from [facility] with a chief complaint of decreased responsiveness and increased lethargy with possible increased right-sided weakness starting this morning. Per [facility] report, the patient is not verbally responsive and is less interactive, which is a change from yesterday. She does follow with eye contact. It is also reported that the patient seems to have increased weakness on the right side, but it may be secondary to previous multiple strokes. Hx of CVAs, seizures, HTN. Nonsmoker, no EtOH, no substance use. Blood work without any significant abnormality except for WBCs of 3.2, glucose of 107, TSH of 0.15, globulin of 1.9 , total protein of 6.1. Urinalysis negative for UTI. Phenytoin level is 21.2, which is slightly elevated. Chest x-ray impression: No active cardiopulmonary disease. In the ED course, the patient is alert and oriented. I discussed the case with Dr. Whipple who came and examined and reviewed the test results and she reports that she is at baseline. Therefore, she recommends for the patient to be discharged back to the retirement. - Diagnoses Provider Diagnoses: Episode of confusion, Elevated phenytoin level - Physician Notifications Discussed Care Of Patient With: Jewels Whipple - hospitalist/provider at [facility] Time Discussed With Above Provider: 13:05 Instructed by Provider To: Other - I discussed the findings of the patient's case, and she states she will come see the patient in the ED. At 1350, Dr. Whipple, as the patient's PCP, consults for the patient and reports that the patient is able to be discharged back to the retirement because she is back to baseline. She doesn't recommend any other testing at this time. Discharge - Sign-Out/Discharge Documenting (check all that apply): Patient Departure - Patient will be discharged home. Patient Received Moderate/Deep Sedation with Procedure: No - Discharge Plan Condition: Stable Disposition: HOME Patient Education Materials: Acute Delirium (ED), Dilantin Toxicity (ED) Referrals: Jewels Whipple DO [Primary Care Provider] - 3 Days Additional Instructions: Follow up with your primary care provider in 2-3 days. RETURN TO THE EMERGENCY DEPARTMENT FOR ANY NEW OR WORSENING SYMPTOMS. - Billing Disposition and Condition Condition: STABLE Disposition: Home - Attestation Statements Document Initiated by Scribe: Yes Documenting Scribe: Elizabeth Mccartney Provider For Whom Scribe is Documenting (Include Credential): Dr. Hans Barajas MD Scribe Attestation: I, Elizabeth Mccartney, scribed for Dr. Hans Barajas MD on 10/29/18 at 1519. Scribe Documentation Reviewed: Yes Provider Attestation: The documentation as recorded by the scribe, Elizabeth Mccartney accurately reflects the service I personally performed and the decisions made by me, Dr. Hans Barajas MD Status of Scribe Document: Ready
[2018-10-29 11:42] LABS: ABS Lymphocytes 1.5 10^3/ul (1.0-4.8); ABS Monocytes 0.3 10^3/ul (0-0.8); ABS Neutrophils 1.5 10^3/ul (1.5-7.7); Hematocrit 41 % (35-47); Hemoglobin 13.9 g/dL (12.0-16.0); Lymphocyte % 45.1 %; Mean Corpuscular HGB Conc 34 g/dL (31-36); Mean Corpuscular Hemoglobin 31 pg (27-31); Mean Corpuscular Volume 93 fL (80-97); Mean Platelet Volume 8.8 fL (7.4-10.4); Nucleated Red Blood Cells % 0.1; Platelet Count 154 10^3/uL (150-450); Red Blood Count 4.44 10^6 /uL (3.70-4.87); Red Cell Distribution Width 14 % (10-15); White Blood Count 3.2 10^3/uL (3.5-10.8)
[2018-10-29 11:51] LABS: Urine Appearance Clear; Urine Bilirubin Negative (Negative); Urine Blood Negative (Negative); Urine Color Yellow; Urine Glucose Negative (Negative); Urine Ketones Negative (Negative); Urine Nitrite Negative (Negative); Urine Protein Negative (Negative); Urine Specific Gravity 1.014 (1.010-1.030); Urine Urobilinogen Negative (Negative)
[2018-10-29 12:01] LABS: Albumin 4.2 g/dL (3.2-5.2); Albumin/Globulin Ratio 2.2 (1-3); BUN/Creatinine Ratio 31.1 (8-20); C Reactive Protein 2.15 mg/L (<8.01); EGFR African American 159.9 (>60); EGFR Non-African American 132.1 (>60); Globulin 1.9 g/dL (2-4); Magnesium 1.9 mg/dL (1.9-2.7); Potassium 3.8 mmol/L (3.5-5.0); Total Bilirubin 0.4 mg/dL (0.2-1.0); Total Protein 6.1 g/dL (6.4-8.9)
[2018-10-29 12:38] LABS: TSH (Thyroid Stimulating Horm) 0.15 mcIU/mL (0.34-5.60)
[2018-10-29 14:45] VITALS: BP 170/71
[2018-10-30 08:50] LABS: Free T4 0.57 ng/dL (0.61-1.12)
== END 2018-10-29 14:42 | disposition home or self-care (01) ==
LOC: ED 11:04
DX: R41.0 Disorientation, unspecified (principal); R53.1 Weakness; I10 Essential (primary) hypertension; Z86.73 Personal history of transient ischemic attack (TIA), and cerebral infarction without residual deficits; R89.2 Abnormal level of other drugs, medicaments and biological substances in specimens from other organs, systems and tissues
CPT/HCPCS: 36415; 71045; 80053; 80185; 81003; 82550; 83605; 83735; 83880; 84439; 84443; 84479; 84484; 85025; 86140; 93005; 99284

== ENCOUNTER 2018-11-01 11:32 | Emergency (ER) | payer MEDICARE, MEDICAID ==
--- NOTE | 2018-11-01 11:49 | ED ---
Altered Mental Status - HPI Summary HPI Summary: LEVEL 5 CAVEAT: HPI is limited because patient is non-verbal. The patient is an 88 y/o F arriving by EMS to [facility] with a chief complaint of decreased responsiveness to pain and increased altered mental status since yesterday 10/31/18 per EMS. Patient was seen in ED on 10/29/18. Patient was discharged to correction yesterday 10/31/18. - History Of Current Complaint Chief Complaint: EDAltMentalStatus Stated Complaint: "AMS PER EMS" Time Seen by Provider: 11/01/18 11:38 Hx From Patient Unobtainable Due To: Altered Mental Status Onset/Duration: Still Present Timing: Constant Aggravating Factor(s): Nothing Alleviating Factor(s): Nothing - Allergies/Home Medications Allergies/Adverse Reactions: Allergies Allergy/AdvReac Type Severity Reaction Status Date / Time Penicillins Allergy Severe Anaphylatic Verified 11/01/18 13:55 Shock solifenacin Allergy Intermediate See Comment Verified 11/01/18 13:57 oxybutynin Allergy Unknown Unknown Verified 11/01/18 13:55 Reaction Details zolpidem Allergy Unknown Unknown Verified 11/01/18 13:55 Reaction Details oxycodone AdvReac Intermediate Nausea Verified 11/01/18 13:55 rofecoxib AdvReac Intermediate Edema Verified 11/01/18 13:57 PMH/Surg Hx/FS Hx/Imm Hx Previously Healthy: No Endocrine/Hematology History: Denies: Hx Anticoagulant Therapy, Hx Blood Disorders, Hx Blood Transfusions, Hx Bone Marrow Disease, Hx Diabetes, Hx Systemic Lupus Erythematosus, Hx Sickle Cell Disease, Hx Thyroid Disease, Hx Anemia, Hx Unexplained Bleeding, Other Endocrine/Hematological Disorders Cardiovascular History: Reports: Hx Hypertension Denies: Hx Angina, Hx Angioplasty, Hx Auto Implanted Cardiovert Defib, Hx Cardiac Arrest, Hx Cardiomegaly, Hx Congenital Heart Disease, Hx Congestive Heart Failure, Hx Coronary Artery Disease, Hx Deep Vein Thrombosis, Hx Hypercholesterolemia, Hx Hypotension, Hx Pacemaker/ICD, Hx Peripheral Vascular Disease, Hx Rheumatic Fever, Hx Syncope, Hx Valvular Heart Disease, Other Cardiovascular Problems/Disorders Respiratory History: Denies: Hx Asthma, Hx Chronic Bronchitis, Hx Chronic Obstructive Pulmonary Disease (COPD), Hx Cystic Fibrosis, Hx Lung Cancer, Hx Pleural Effusion, Hx Pneumonia, Hx Pulmonary Edema, Hx Pulmonary Embolism, Hx Seasonal Allergies, Hx Sleep Apnea, Other Respiratory Problems/Disorders GI History: Denies: Hx Cirrhosis, Hx Crohn's Disease, Hx Diverticulosis, Hx Gall Bladder Disease, Hx Gastroesophageal Reflux Disease, Hx Gastrointestinal Bleed, Hx Hiatal Hernia, Hx Irritable Bowel, Hx Jaundice, Hx Obstructive Bowel, Hx Ileostomy, Hx Pyloric Stenosis, Hx Ulcer, Other GI Disorders History: Reports: Hx Kidney Stones Denies: Hx Acute Renal Failure, Hx Benign Prostatic Hyperplasia, Hx Chronic Renal Failure, Hx Dialysis, Hx Kidney Infection, Other Problems/Disorders Musculoskeletal History: Reports: Hx Arthritis, Hx Back Problems, Hx Osteoporosis, Other Musculoskeletal History Denies: Hx Bursitis, Hx Congenital Bone Abnormalities, Hx Fibromyalgia, Hx Gout, Hx Orthopedic Injury, Hx Scoliosis, Hx Tendonitis Sensory History: Denies: Hx Cataracts, Hx Contacts or Glasses, Hx Eye Injury, Hx Eye Prosthesis, Hx Glaucoma, Hx Macular Degeneration, Hx Vision Problem, Hx Deafness , Hx Hearing Aid, Hx Hearing Problem, Other Sensory Impairments Opthamlomology History: Denies: Hx Cataracts, Hx Contacts or Glasses, Hx Eye Injury, Hx Eye Prosthesis, Hx Glaucoma, Hx Macular Degeneration, Hx Vision Problem, Other Sensory Impairments Neurological History: Reports: Hx CVA, Hx Migraine, Hx Seizures, Other Neuro Impairments/Disorders - hx of concussion at 19yrs old Denies: Hx Dementia, Hx Developmental Delay, Hx Headaches, Hx Spinal Cord Injury, Hx Transient Ischemic Attacks (TIA) Psychiatric History: Reports: Hx Depression, Hx Community Mental Health Tx Denies: Hx Anxiety, Hx Attention Deficit Hyperactivity Disorder, Hx Eating Disorder, Hx Panic Disorder, Hx Post Traumatic Stress Disorder, Hx Inpatient Treatment, Hx Schizophrenia, Hx Bipolar Disorder, Hx Suicide Attempt, Hx Substance Abuse, Other Psychiatric Issues/Disorders - Cancer History Hx Chemotherapy: No Hx Radiation Therapy: No - Surgical History Surgery Procedure, Year, and Place: BILAT KNEES, appy, hysterectomy,tonsilectomy Hx Anesthesia Reactions: No - Immunization History Date of Tetanus Vaccine: unknown Date of Influenza Vaccine: unknown Infectious Disease History: No Infectious Disease History: Denies: Hx Clostridium Difficile, Hx Hepatitis, Hx Human Immunodeficiency Virus (HIV), Hx of Known/Suspected MRSA, Hx Shingles, Hx Tuberculosis, Traveled Outside the [place] in Last 30 Days - Family History Known Family History: Positive: Hypertension, Other - Negative anxiety, negative depression - Social History Alcohol Use: None Hx Substance Use: Yes Substance Use Type: Reports: Prescribed Hx Tobacco Use: Yes Smoking Status (MU): Former Smoker Length of Time of Smoking/Using Tobacco: 15 years Have You Smoked in the Last Year: No Review of Systems - ROS Summary Review of Systems Summary: LEVEL 5 CAVEAT: ROS is limited because patient is non-verbal Neurological: Other - Altered Mental Status, decreased responsiveness to pain All Other Systems Reviewed And Are Negative: No Physical Exam - Summary Physical Exam Summary: VITAL SIGNS:Reviewed. GENERAL: Patient is an elderly but well nourished female who is lying comfortable in the stretcher. Patient is not in any acute respiratory distress. She has a facial droop secondary to multiple previous strokes. Nonverbal. HEAD AND FACE: No signs of trauma. No ecchymosis, hematomas or skull depressions. No sinus tenderness. EYES:PERRLA, EOMI x 2, No injected conjunctiva, no nystagmus. EARS: Hearing grossly intact. Ear canals and tympanic membranes are within normal limits. MOUTH:Oropharynx within normal limits. NECK: Supple, trachea is midline, no adenopathy, no JVD, no carotid bruit, no c- spine tenderness, neck with full ROM. CHEST:Symmetric, no tenderness at palpation. LUNGS:Clear to auscultation bilaterally. No wheezing or crackles. CVS:Regular rate and rhythm, S1 and S2 present, no murmurs or gallops appreciated. ABDOMEN:Soft, non-tender. No signs of distention. No rebound, no guarding, and no masses palpated. Positive bowel sounds. EXTREMITIES: FROM in all major joints, no edema, no cyanosis or clubbing. NEURO:Alert. She has a facial droop secondary to multiple previous strokes. Nonverbal. SKIN:Dry and warm. Completion Of Physical Exam Limited Due To:Level 5 Triage Information Reviewed: Yes Vital Signs On Initial Exam: Initial Vitals Temp Pulse Resp BP Pulse Ox 98.2 F 67 14 179/77 94 11/01/18 11:36 11/01/18 11:36 11/01/18 11:36 11/01/18 11:36 11/01/18 11:36 Vital Signs Reviewed: Yes Diagnostics - Vital Signs Vital Signs Temp Pulse Resp BP Pulse Ox 11/01/18 11:36 98.2 F 67 14 179/77 94 - Laboratory Result Diagrams: 11/01/18 12:07 11/01/18 12:07 Lab Statement: Any lab studies that have been ordered have been reviewed, and results considered in the medical decision making process. Altered Mental Statu Course/Dx - Course Assessment/Plan: The patient is an 88 y/o F arriving by EMS to [facility] with a chief complaint of decreased responsiveness to pain and increased altered mental status since yesterday 10/31/18 per EMS. Patient was seen in ED on . Patient was discharged to correction yesterday 10/31/18. Blood work without any significant abnormality except for WBC of 3, creatinine 0.49, and TSH of 0.15. Urinalysis is negative for UTI. Phenytoin level is 17.9. I discussed my physical exam and findings with Dr. Alford from the hospital services who will admitt the patient to her services for further workup and management. The patient is acting her baseline. Addendun: The patient was initially accepted by Dr. Alford for admission but after further assessment and review of blood work and head CT, she recommends for the patient to be discharged back to the correction. At this point, the patient is able to speak, and apparently the patient is back to her baseline. Patient is hemodynamically stable. - Diagnoses Provider Diagnoses: Altered mental status - Provider Notifications Discussed Care Of Patient With: Marla Alford Time Discussed With Above Provider: 13:45 Instructed by Provider To: Other - Dr. Alford, hospitalist, agrees to admit patient Discharge - Sign-Out/Discharge Documenting (check all that apply): Patient Departure - discharge Patient Received Moderate/Deep Sedation with Procedure: No - Discharge Plan Condition: Stable Disposition: HOME Patient Education Materials: Altered Mental Status (ED) Referrals: Jewels Whipple DO [Primary Care Provider] - 3 Days Additional Instructions: Follow up with primary care provider within 3 days. Return to the emergency department for any new or worsening symptoms. - Billing Disposition and Condition Condition: STABLE Disposition: Home - Attestation Statements Document Initiated by Scribe: Yes Documenting Scribe: Sweta Rodriguez Provider For Whom Scribe is Documenting (Include Credential): Hans Barajas MD Scribe Attestation: ISweta, scribed for Hans Barajas MD on 11/03/18 at 2006. Scribe Documentation Reviewed: Yes Provider Attestation: The documentation as recorded by the scribe, Sweta Rodriguez accurately reflects the service I personally performed and the decisions made by me, Hans Barajas MD Status of Scribmiles Document: Viewed
[2018-11-01 12:26] LABS: ABS Lymphocytes 1.1 10^3/ul (1.0-4.8); ABS Monocytes 0.2 10^3/ul (0-0.8); ABS Neutrophils 1.6 10^3/ul (1.5-7.7); Hematocrit 44 % (35-47); Hemoglobin 14.7 g/dL (12.0-16.0); Mean Corpuscular HGB Conc 33 g/dL (31-36); Mean Corpuscular Hemoglobin 31 pg (27-31); Mean Corpuscular Volume 93 fL (80-97); Mean Platelet Volume 8.6 fL (7.4-10.4); Nucleated Red Blood Cells % 0.2; Platelet Count 152 10^3/uL (150-450); Red Blood Count 4.73 10^6 /uL (3.70-4.87); Red Cell Distribution Width 15 % (10-15)
[2018-11-01 12:38] LABS: Albumin 4.4 g/dL (3.2-5.2); Albumin/Globulin Ratio 2.2 (1-3); BUN/Creatinine Ratio 28.6 (8-20); Calcium 9.3 mg/dL (8.6-10.3); EGFR African American 144.9 (>60); EGFR Non-African American 119.7 (>60); Potassium 3.9 mmol/L (3.5-5.0); Total Bilirubin 0.4 mg/dL (0.2-1.0); Total Protein 6.4 g/dL (6.4-8.9)
[2018-11-01 12:48] LABS: Phenytoin 17.9 mcg/mL (10-20)
[2018-11-01 12:57] LABS: Urine Appearance Cloudy; Urine Bilirubin Negative (Negative); Urine Blood Negative (Negative); Urine Color Yellow; Urine Glucose Negative (Negative); Urine Ketones Negative (Negative); Urine Nitrite Negative (Negative); Urine Protein Negative (Negative); Urine Specific Gravity 1.012 (1.010-1.030); Urine Urobilinogen Negative (Negative)
[2018-11-01 13:03] LABS: TSH (Thyroid Stimulating Horm) 0.15 mcIU/mL (0.34-5.60)
[2018-11-01] MEDS ORDERED: Magnesium Hydroxide LIQ* 30 ML UDC PO PRN (13:49)
[2018-11-01] MEDS ORDERED: Bisacodyl SUPP* 10 MG SUPP PR PRN (13:49)
[2018-11-01] MEDS ORDERED: Acetaminophen TAB* 325 MG PO PRN (13:56)
[2018-11-01] MEDS ORDERED: NS 0.9% 1000 ML** 1,000 ML IV SCH (14:00)
[2018-11-01] MEDS ORDERED: Heparin VIAL(*) 5000 UNITS/ML VIAL (FIVE THOUSAND) SUBCUT SCH (14:00)
[2018-11-01 14:39] LABS: Free T3 3.4 pg/mL (2.5-3.9)
[2018-11-01 14:40] LABS: Free T4 0.63 ng/dL (0.61-1.12)
[2018-11-01] MEDS ORDERED: NS 0.9% 1000 ML** 1,000 ML IV ONE (14:48)
--- NOTE | 2018-11-01 14:57 | HP ---
CC: Dr. Whipple, [facility]; Dr. Stanley * HISTORY AND PHYSICAL: DATE OF ADMISSION: 11/01/18 - EMERGENCY DEPT PRIMARY CARE PROVIDER: Dr. Whipple from [facility]. CHIEF COMPLAINT: Altered mental status. HISTORY OF PRESENT ILLNESS: Rica Adams is an 88-year-old female with history of seizure disorder and ischemic CVA with residual right-sided weakness , who was brought in from [facility] twice in the past couple of days with complaints of lethargy. As per conversation with emergency department nurses who also had seen this patient multiple times, the patient appears to be close to her baseline. Nevertheless, as per discussion with the patient's friend, Giuliana Holley, with phone number [phone], the patient at baseline is communicative, but very difficult to be able to verbalize due to her history of dysarthria. She at baseline will follow commands, which she now does not do. There is a question of ongoing seizure and she is going to be placed on overnight observation with a diagnosis of lethargy to rule out seizure. PAST MEDICAL HISTORY: 1. Hypertension. 2. History of seizure disorder. 3. Osteoarthritis. 4. History of vitamin B12 deficiency. 5. Chronic back pain. 6. History of kidney stone, status post ureteral stent in the past. 7. Depression. 8. History of sacral decubitus ulcer. 9. History of ischemic CVA with residual right-sided hemiparesis, dysarthria, and dysphagia. MEDICATIONS: At the custodial include: 1. Amlodipine 2.5 mg daily. 2. Lidocaine patch 4% apply to lower back topically once a day. 3. Aspirin 81 mg daily. 4. GlycoLax powder 17 g daily p.r.n. 5. Loratadine 10 mg daily p.r.n. 6. Zoloft 100 mg daily. 7. Bactrim DS was started for UTI on 10/19/18 for a total of 7 days and last dose being 10/25/18. 8. Clonazepam 1 mg every morning and at bedtime p.r.n. anxiety. 9. Dilantin 100 mg b.i.d. 10. Acetaminophen on a p.r.n. basis. 11. Morphine concentrate 5 mg every 4 hours p.r.n. pain. ALLERGIES: Include PENICILLINS, OXYBUTYNIN, ZOLPIDEM, and OXYCODONE. FAMILY HISTORY: Unobtainable from this nonverbal patient. SOCIAL HISTORY: The patient is a resident of [facility]. At baseline, she is basically bedbound or wheelchair bound. As her healthcare proxy, she nominated her son, Bernardo Adams, whose phone number listed is actually not available. I spoke with the patient's good friend, Giuliana Holley, who is a person of contact with phone number [phone]. The patient's history of tobacco, alcohol, or drug use is unknown. REVIEW OF SYSTEMS: Unobtainable. As per baseline evaluations in the past, the patient has history of very limited verbal communication. Usually, she shakes her head or nods it or blinks. Her right side is paralyzed at baseline. As per the ED provider, when the patient had a straight catheterization performed in the ED, she was apparently screaming. PHYSICAL EXAMINATION GENERAL: The patient is awake, lying in bed, appears in no distress. She is able to follow me with her eyes, but she does not appear to be able to communicate. She does not make verbal attempts and she does not blink or shake her head when asked questions. She is not following commands in any capacity. VITAL SIGNS: Blood pressure of 148/71, heart rate of 61 and regular, respiratory rate 15, oxygen saturation 96% on room air, temperature of 98.2. HEENT: Head: Atraumatic, normocephalic. Eyes: Pupils are equal, reactive to light and accommodation. The face is turned to the right, which apparently as per the patient's friend, she always does. She has significant right-sided facial droop. NECK: Supple. No JVD. No bruits bilaterally. RESPIRATORY: Clear to auscultation bilaterally. CARDIOVASCULAR: Regular rate and rhythm. No murmur. ABDOMEN: Soft, nontender. Bowel sounds are present in all 4 quadrants. EXTREMITIES: There is no edema. Pulses are +2 bilaterally. No clubbing or cyanosis. NEUROLOGIC: Right facial droop. The patient has increased spasticity in the left leg. The patient appears to have cogwheel rigidity in bilateral upper extremities. She has right-sided facial droop. Babinski's negative bilaterally. Otherwise, the neuro exam is very difficult to obtain due to the patient being not cooperative and with generalized increased tonicity. LABORATORY DATA: White blood cell count of 3.0, hemoglobin 14.7, hematocrit 44 , and platelets 152. Sodium 143, potassium 3.9, chloride 106, carbon dioxide 31 , BUN 14, creatinine 0.49. Liver function tests unremarkable. TSH 0.15. Urinalysis unremarkable. Phenytoin level 17.9. ASSESSMENT AND PLAN: An 88-year-old female with history of seizure disorder and cerebrovascular accident with dysarthria, presents with questionable altered mental status. It is difficult to distinguish how altered the patient is due to her very poor baseline. At this point, the patient is going to be placed on overnight observation with neuro checks every 2 hours. An EEG is going to be obtained if the patient's mental state changes and I will ask Dr. Stanley from Neurology to see the patient in consultation. For the time being, the patient is going to be continued on her phenytoin as well as morphine on an as-needed basis. For DVT prophylaxis, the patient is going to be placed on heparin subcutaneously. For history of hypertension, the patient's amlodipine is going to be continued. The patient is baseline dysarthric and she is going to be placed on pureed diet and honey-thick liquids. The patient's code status is do not resuscitate. Unfortunately, I was unable to contact her healthcare proxy who would confirm that and she is going to continue with 24-hour outpatient DNR. TIME SPENT: Approximately 65 minutes was spent on evaluation of this patient, more than half that time was spent [id number] with the patient in evaluation. ADDENDUM: DATE OF SERVICE: 11/01/18 Summary of patient's discharge from ED: Please note that after the patient's admission was done, she still remained in the ED. I discussed briefly the case with the neurologist on-call. A CT of the brain was recommended that is still pending at the time of dictation. It was difficult to gather relevant information about what is the patient's baseline. From the experience of the nursing staff in the emergency department , the patient's baseline is how she presented initially, basically being nonverbal and blinking occasionally. Interestingly enough, Orijuliana, her good friend, who is the person of contact came in and saw the patient today and stated that for chosen people the patient actually decides to interact with them and at this point she is able to swallow and communicate. Otherwise, she is not really interested in interaction. Giuliana also told me that there are times when the patient is tired and she does not respond right away, which is also her baseline. At the end of our conversation, the patient was able to say that she wishes not to go back to [facility]. I did talk with Orijuliana, the patient's friend, that that needs to be addressed with [facility]'s staff and social workers if the patient wants to be moved to another residence. At this point, I do not believe that the patient's lethargy was out of the ordinary. She does have periods when she is tired and she does not want to interact, but I believe it is something that she chooses to do and it is not related to a true neurologic problem. She is now more interactive when her friend is around. She still continues to have increased tonicity in the left leg and cogwheel rigidity in bilateral upper extremities, as well as facial droop and dysarthria, although I am able to understand what she is saying. At this point, I do not believe that there is a reason for the patient to be further observed in the hospital and she is going to be sent back to [facility] for continuation of her therapy and treatment. That was updated with the patient's person of contact, Giuliana, as well as Dr. Barajas, the emergency department physician, who is going to discharge the patient from the ED. At this point, please note that the patient's admission was canceled. Please note that the patient's TSH was mildly decreased at 0.15, but free T4 was 0.63 and free T3 was 3.4, both of those are within normal limits. It is recommended for the patient to have followup TSH within the next 4 to 6 weeks. [id number]/[facility]PS #: [id number]/CPS #: [id number] [facility] CANCER CENTERLaquita
[2018-11-01 15:36] VITALS: BP 152/72
--- NOTE | 2018-11-01 15:54 | HP ---
CC: Primary Care Provider HISTORY AND PHYSICAL/SHORT DISCHARGE SUMMARY: ADDENDUM: DATE OF SERVICE: 11/01/18 Summary of patient's discharge from ED: Please note that after the patient's admission was done, she still remained in the ED. I discussed briefly the case with the neurologist on-call. A CT of the brain was recommended that is still pending at the time of dictation. It was difficult to gather relevant information about what is the patient's baseline. From the experience of the nursing staff in the emergency department , the patient's baseline is how she presented initially, basically being nonverbal and blinking occasionally. Interestingly enough, Giuliana, her good friend, who is the person of contact came in and saw the patient today and stated that for chosen people the patient actually decides to interact with them and at this point she is able to swallow and communicate. Otherwise, she is not really interested in interaction. Giuliana also told me that there are times when the patient is tired and she does not respond right away, which is also her baseline. At the end of our conversation, the patient was able to say that she wishes not to go back to [facility]. I did talk with Giuliana, the patient's friend, that that needs to be addressed with [facility]'s staff and social workers if the patient wants to be moved to another residence. At this point, I do not believe that the patient's lethargy was out of the ordinary. She does have periods when she is tired and she does not want to interact, but I believe it is something that she chooses to do and it is not related to a true neurologic problem. She is now more interactive when her friend is around. She still continues to have increased tonicity in the left leg and cogwheel rigidity in bilateral upper extremities, as well as facial droop and dysarthria, although I am able to understand what she is saying. At this point, I do not believe that there is a reason for the patient to be further observed in the hospital and she is going to be sent back to [facility] for continuation of her therapy and treatment. That was updated with the patient's person of contact, Giuliana, as well as Dr. Barajas, the emergency department physician, who is going to discharge the patient from the ED. At this point, please note that the patient's admission was canceled. Please note that the patient's TSH was mildly decreased at 0.15, but free T4 was 0.63 and free T3 was 3.4, both of those are within normal limits. It is recommended for the patient to have followup TSH within the next 4 to 6 weeks. [id number]/[facility] #: [id number] MTDD
[2018-11-01] MEDS ORDERED: clonazePAM TAB(*) 1 MG PO SCH (21:00)
[2018-11-01] MEDS ORDERED: Phenytoin CAP(*) 100 MG CAP.ER PO SCH (21:00)
[2018-11-02] MEDS ORDERED: Aspirin 81 mg CHEW TAB* 81 MG TAB.CHEW PO SCH (09:00)
[2018-11-02] MEDS ORDERED: Sertraline* 100 MG TAB PO SCH (09:00)
[2018-11-02] MEDS ORDERED: amLODIPine TAB* 5 MG PO SCH (09:00)
[2018-11-02] MEDS ORDERED: Polyethylene Glycol 3350* 17 GM PACKET PO SCH (09:00)
== END 2018-11-01 15:41 | disposition home or self-care (01) ==
LOC: ED 11:32
DX: R41.82 Altered mental status, unspecified (principal); I10 Essential (primary) hypertension; M19.90 Unspecified osteoarthritis, unspecified site; G40.909 Epilepsy, unspecified, not intractable, without status epilepticus; F32.9 Major depressive disorder, single episode, unspecified; Z79.899 Other long term (current) drug therapy; Z88.5 Allergy status to narcotic agent; Z88.0 Allergy status to penicillin; Z88.8 Allergy status to other drugs, medicaments and biological substances; Z87.891 Personal history of nicotine dependence
CPT/HCPCS: 36415; 70450; 80053; 80185; 81003; 82140; 83605; 84439; 84443; 84481; 84484; 85025; 96360; 96361; 99283; A9270-GY

== ENCOUNTER 2019-01-23 12:52 | Emergency (ER) | payer MEDICARE, MEDICAID ==
[2019-01-23 13:50] LABS: ABS Lymphocytes 1.6 10^3/ul (1.0-4.8); ABS Monocytes 0.9 10^3/ul (0-0.8); Hematocrit 37 % (35-47); Hemoglobin 12.3 g/dL (12.0-16.0); Lymphocyte % 29.2 %; Mean Corpuscular HGB Conc 33 g/dL (31-36); Mean Corpuscular Hemoglobin 31 pg (27-31); Mean Corpuscular Volume 93 fL (80-97); Mean Platelet Volume 10.1 fL (7.4-10.4); Nucleated Red Blood Cells % 0.2; Platelet Count 139 10^3/uL (150-450); Red Blood Count 4.01 10^6 /uL (3.70-4.87); Red Cell Distribution Width 14 % (10-15); White Blood Count 5.5 10^3/uL (3.5-10.8)
[2019-01-23 13:59] LABS: Activated Partial Thrombo Time 31.1 seconds (26.0-38.0); INR 1.09 (0.82-1.09)
[2019-01-23 14:11] LABS: Albumin 3.8 g/dL (3.2-5.2); Albumin/Globulin Ratio 1.7 (1-3); C Reactive Protein 126.19 mg/L (<8.01); Calcium 9.1 mg/dL (8.6-10.3); EGFR African American 138.4 (>60); EGFR Non-African American 114.3 (>60); Globulin 2.2 g/dL (2-4); Potassium 3.7 mmol/L (3.5-5.0); Total Bilirubin 0.6 mg/dL (0.2-1.0)
[2019-01-23 14:36] LABS: Urine Appearance Clear; Urine Bacteria 3+ (Absent); Urine Bilirubin Negative (Negative); Urine Blood 1+ (Negative); Urine Color Yellow; Urine Glucose Negative (Negative); Urine Ketones Negative (Negative); Urine Nitrite Positive (Negative); Urine Protein 1+(30 mg/dL) (Negative); Urine Red Blood Cell 2+(6-10/hpf) (Absent); Urine Specific Gravity 1.026 (1.010-1.030); Urine Squamous Epithelial Cell Present (Absent); Urine Urobilinogen Negative (Negative); Urine White Blood Cell 2+(11-20/hpf) (Absent)
[2019-01-23] MEDS ORDERED: Acetaminophen TAB* 325 MG PO ONE (14:47)
[2019-01-23] MEDS ORDERED: cefTRIAXone(*) 1 GM in NS 0.9% 50 ML* 50 ML IVPB ONE (15:39)
[2019-01-23] MEDS ORDERED: traMADol TAB* 50 MG PO ONE ×2 (15:52→18:34)
--- NOTE | 2019-01-23 17:01 | ED ---
Lower Extremity - HPI Summary HPI Summary: 88 year old female reports to the ED with a chief complaint of left knee pain worsening since falling while attempting to ambulate 10 days ago. She reports knee swelling that started after the fall. Pain rated 8/10 in severity. Movement aggravates the pain. Rest alleviates the pain. She also reports fever, chills, and diaphoresis. She denies back pain, erythema of eyes, sore throat, CP , SOB, cough, abdominal pain, N/V, dysuria, hematuria, myalgia, rash, or dizziness. Negative history of rheumatoid arthritis. - History of Current Complaint Chief Complaint: EDExtremityLower Stated Complaint: LEFT KNEE PAIN/SWELLING PER EMS Time Seen by Provider: 01/23/19 13:03 Hx Obtained From: Patient Mechanism Of Injury: Fall From Height Of: - wheel chair Onset of Pain: Immediate Onset/Duration: Worse Since - yesterday when she fell out of wheel chair. Severity Initially: Severe Severity Currently: Severe Pain Intensity: 8 Pain Scale Used: 0-10 Numeric Timing: Constant, Lasting Hours Location: Is Discrete @ - left knee Character Of Pain: Unable To Describe Associated Signs And Symptoms: Positive: Swelling, Fever, Knee Pain, Other - chills, diaphoresis Aggravating Factor(s): Movement Alleviating Factor(s): Rest Able to Bear Weight: No - Allergies/Home Medications Allergies/Adverse Reactions: Allergies Allergy/AdvReac Type Severity Reaction Status Date / Time Penicillins Allergy Severe Anaphylatic Verified 11/01/18 13:55 Shock solifenacin Allergy Intermediate See Comment Verified 11/01/18 13:57 oxybutynin Allergy Unknown Unknown Verified 11/01/18 13:55 Reaction Details zolpidem Allergy Unknown Unknown Verified 11/01/18 13:55 Reaction Details oxycodone AdvReac Intermediate Nausea Verified 11/01/18 13:55 rofecoxib AdvReac Intermediate Edema Verified 11/01/18 13:57 Home Medications: Home Medications Lidocaine [Aspercreme Lidocaine Max] 1 patch EX DAILY 01/23/19 [History Confirmed 01/23/19] Menthol/Zinc Oxide [Calmoseptine] 1 applic TOPICAL BID 01/23/19 [History Confirmed 01/23/19] Methyl Salicylate/Menthol [Muscle Rub Cream] 1 applic TOPICAL Q12HR PRN [History Confirmed 01/23/19] Morphine TAB Extended Rel(*) [Ms Contin(*)] 15 mg PO BEDTIME 01/23/19 [History Confirmed 01/23/19] Sertraline* [Zoloft*] 100 mg PO DAILY 01/23/19 [History Confirmed 01/23/19] PMH/Surg Hx/FS Hx/Imm Hx Endocrine/Hematology History: Denies: Hx Anticoagulant Therapy, Hx Blood Disorders, Hx Blood Transfusions, Hx Bone Marrow Disease, Hx Diabetes, Hx Systemic Lupus Erythematosus, Hx Sickle Cell Disease, Hx Thyroid Disease, Hx Anemia, Hx Unexplained Bleeding, Other Endocrine/Hematological Disorders Cardiovascular History: Reports: Hx Hypertension Denies: Hx Angina, Hx Angioplasty, Hx Auto Implanted Cardiovert Defib, Hx Cardiac Arrest, Hx Cardiomegaly, Hx Congenital Heart Disease, Hx Congestive Heart Failure, Hx Coronary Artery Disease, Hx Deep Vein Thrombosis, Hx Hypercholesterolemia, Hx Hypotension, Hx Pacemaker/ICD, Hx Peripheral Vascular Disease, Hx Rheumatic Fever, Hx Syncope, Hx Valvular Heart Disease, Other Cardiovascular Problems/Disorders Respiratory History: Denies: Hx Asthma, Hx Chronic Bronchitis, Hx Chronic Obstructive Pulmonary Disease (COPD), Hx Cystic Fibrosis, Hx Lung Cancer, Hx Pleural Effusion, Hx Pneumonia, Hx Pulmonary Edema, Hx Pulmonary Embolism, Hx Seasonal Allergies, Hx Sleep Apnea, Other Respiratory Problems/Disorders GI History: Denies: Hx Cirrhosis, Hx Crohn's Disease, Hx Diverticulosis, Hx Gall Bladder Disease, Hx Gastroesophageal Reflux Disease, Hx Gastrointestinal Bleed, Hx Hiatal Hernia, Hx Irritable Bowel, Hx Jaundice, Hx Obstructive Bowel, Hx Ileostomy, Hx Pyloric Stenosis, Hx Ulcer, Other GI Disorders History: Reports: Hx Kidney Stones Denies: Hx Acute Renal Failure, Hx Benign Prostatic Hyperplasia, Hx Chronic Renal Failure, Hx Dialysis, Hx Kidney Infection, Other Problems/Disorders Musculoskeletal History: Reports: Hx Arthritis, Hx Back Problems, Hx Osteoporosis, Other Musculoskeletal History Denies: Hx Bursitis, Hx Congenital Bone Abnormalities, Hx Fibromyalgia, Hx Gout, Hx Orthopedic Injury, Hx Scoliosis, Hx Tendonitis Sensory History: Denies: Hx Cataracts, Hx Contacts or Glasses, Hx Eye Injury, Hx Eye Prosthesis, Hx Glaucoma, Hx Macular Degeneration, Hx Vision Problem, Hx Deafness , Hx Hearing Aid, Hx Hearing Problem, Other Sensory Impairments Opthamlomology History: Denies: Hx Cataracts, Hx Contacts or Glasses, Hx Eye Injury, Hx Eye Prosthesis, Hx Glaucoma, Hx Macular Degeneration, Hx Vision Problem, Other Sensory Impairments Neurological History: Reports: Hx CVA, Hx Migraine, Hx Seizures, Other Neuro Impairments/Disorders - hx of concussion at 19yrs old Denies: Hx Dementia, Hx Developmental Delay, Hx Headaches, Hx Spinal Cord Injury, Hx Transient Ischemic Attacks (TIA) Psychiatric History: Reports: Hx Depression, Hx Community Mental Health Tx Denies: Hx Anxiety, Hx Attention Deficit Hyperactivity Disorder, Hx Eating Disorder, Hx Panic Disorder, Hx Post Traumatic Stress Disorder, Hx Inpatient Treatment, Hx Schizophrenia, Hx Bipolar Disorder, Hx Suicide Attempt, Hx Substance Abuse, Other Psychiatric Issues/Disorders - Cancer History Hx Chemotherapy: No Hx Radiation Therapy: No - Surgical History Surgical History: Yes Surgery Procedure, Year, and Place: BILAT KNEES, appy, hysterectomy,tonsilectomy Hx Anesthesia Reactions: No - Immunization History Date of Tetanus Vaccine: unknown Date of Influenza Vaccine: unknown Infectious Disease History: No Infectious Disease History: Denies: Hx Clostridium Difficile, Hx Hepatitis, Hx Human Immunodeficiency Virus (HIV), Hx of Known/Suspected MRSA, Hx Shingles, Hx Tuberculosis, Traveled Outside the [place] in Last 30 Days - Family History Known Family History: Positive: Hypertension, Other - Negative anxiety, negative depression - Social History Alcohol Use: None Hx Substance Use: Yes Substance Use Type: Reports: Prescribed Hx Tobacco Use: Yes Smoking Status (MU): Former Smoker Length of Time of Smoking/Using Tobacco: 15 years Have You Smoked in the Last Year: No Review of Systems Positive: Fever, Chills, Skin Diaphoresis Negative: Erythema Negative: Sore Throat Negative: Chest Pain Negative: Shortness Of Breath, Cough Negative: Abdominal Pain, Vomiting, Nausea Negative: dysuria, hematuria Positive: Arthralgia, Edema. Negative: Myalgia Negative: Rash Neurological: Negative - Neg dizziness All Other Systems Reviewed And Are Negative: Yes Physical Exam - Summary Physical Exam Summary: Constitutional: Well-developed, Well-nourished, Alert. (-) Distressed Skin: Warm, Dry HENT: Normocephalic; Atraumatic Eyes: Conjunctiva normal Neck: Musculoskeletal ROM normal neck. (-) JVD, (-) Stridor, (-) Tracheal deviation Cardio: Rhythm regular, rate normal, Heart sounds normal; Intact distal pulses; The pedal pulses are 2+ and symmetric. Radial pulses are 2+ and symmetric. (-) Murmur Pulmonary/Chest wall: Effort normal. (-) Respiratory distress, (-) Wheezes, (-) Rales Abd: Soft, (-) tenderness, (-) Distension, (-) Guarding, (-) Rebound Musculoskeletal: Edema on right knee. Torticollis of the neck to the right. Midline incision on the left knee. Significant effusion and warmth of the left knee. Lymph: (-) Cervical adenopathy Neuro: Alert, Oriented x3 Psych: Mood and affect Normal Triage Information Reviewed: Yes Vital Signs On Initial Exam: Initial Vitals Temp Pulse Resp BP Pulse Ox 98.0 F 91 16 142/82 94 01/23/19 13:08 01/23/19 13:08 01/23/19 13:08 01/23/19 13:08 01/23/19 13:08 Vital Signs Reviewed: Yes Procedures - Sedation Patient Received Moderate/Deep Sedation with Procedure: No Diagnostics - Vital Signs Vital Signs Temp Pulse Resp BP Pulse Ox 01/23/19 15:41 98.6 F 01/23/19 15:38 93 01/23/19 15:36 135/72 01/23/19 15:06 153/62 01/23/19 14:36 128/60 01/23/19 14:06 149/71 01/23/19 13:36 93 136/67 93 01/23/19 13:13 94 93 01/23/19 13:08 98.0 F 91 16 142/82 94 - Laboratory Lab Results: Lab Results 01/23/19 01/23/19 01/23/19 Range/Units 13:25 13:25 13:25 WBC 5.5 (3.5-10.8) 10^3/uL RBC 4.01 (3.70-4.87) 10^6 /uL Hgb 12.3 (12.0-16.0) g/dL Hct 37 (35-47) % MCV 93 (80-97) fL MCH 31 (27-31) pg MCHC 33 (31-36) g/dL RDW 14 (10-15) % Plt Count 139 L (150-450) 10^3/uL MPV 10.1 (7.4-10.4) fL Neut % (Auto) 54.7 % Lymph % (Auto) 29.2 % [place] % (Auto) 15.5 % Eos % (Auto) 0.0 % Baso % (Auto) 0.6 % Absolute Neuts (auto) 3.0 (1.5-7.7) 10^3/ul Absolute Lymphs (auto) 1.6 (1.0-4.8) 10^3/ul Absolute Monos (auto) 0.9 H (0-0.8) 10^3/ul Absolute Eos (auto) 0.0 (0-0.6) 10^3/ul Absolute Basos (auto) 0.0 (0-0.2) 10^3/ul Absolute Nucleated RBC 0.0 10^3/ul Nucleated RBC % 0.2 INR (Anticoag Therapy) 1.09 (0.82-1.09) APTT 31.1 (26.0-38.0) seconds Sodium 142 (135-145) mmol/L Potassium 3.7 (3.5-5.0) mmol/L Chloride 104 (101-111) mmol/L Carbon Dioxide 31 (22-32) mmol/L Anion Gap 7 (2-11) mmol/L BUN 25 H (6-24) mg/dL Creatinine 0.51 (0.51-0.95) mg/dL Est GFR ( Amer) 138.4 (>60) Est GFR (Non-Af Amer) 114.3 (>60) BUN/Creatinine Ratio 49.0 H (8-20) Glucose 83 (70-100) mg/dL Lactic Acid (0.5-2.0) mmol/L Uric Acid 3.0 (2.3-6.6) mg/dL Calcium 9.1 (8.6-10.3) mg/dL Total Bilirubin 0.60 (0.2-1.0) mg/dL AST 19 (13-39) U/L ALT 17 (7-52) U/L Alkaline Phosphatase 51 (34-104) U/L C-Reactive Protein 126.19 H (<8.01) mg/L Total Protein 6.0 L (6.4-8.9) g/dL Albumin 3.8 (3.2-5.2) g/dL Globulin 2.2 (2-4) g/dL Albumin/Globulin Ratio 1.7 (1-3) Urine Color Urine Appearance Urine pH (5-9) Ur Specific [place] (1.010-1.030) Urine Protein (Negative) Urine Ketones (Negative) Urine Blood (Negative) Urine Nitrate (Negative) Urine Bilirubin (Negative) Urine Urobilinogen (Negative) Ur Leukocyte Esterase (Negative) Urine WBC (Auto) (Absent) Urine RBC (Auto) (Absent) Ur Squamous Epith Cells (Absent) Urine Bacteria (Absent) Urine Glucose (Negative) Urine Ascorbic Acid (Negative) 01/23/19 01/23/19 Range/Units 13:25 14:14 WBC (3.5-10.8) 10^3/uL RBC (3.70-4.87) 10^6 /uL Hgb (12.0-16.0) g/dL Hct (35-47) % MCV (80-97) fL MCH (27-31) pg MCHC (31-36) g/dL RDW (10-15) % Plt Count (150-450) 10^3/uL MPV (7.4-10.4) fL Neut % (Auto) % Lymph % (Auto) % [place] % (Auto) % Eos % (Auto) % Baso % (Auto) % Absolute Neuts (auto) (1.5-7.7) 10^3/ul Absolute Lymphs (auto) (1.0-4.8) 10^3/ul Absolute Monos (auto) (0-0.8) 10^3/ul Absolute Eos (auto) (0-0.6) 10^3/ul Absolute Basos (auto) (0-0.2) 10^3/ul Absolute Nucleated RBC 10^3/ul Nucleated RBC % INR (Anticoag Therapy) (0.82-1.09) APTT (26.0-38.0) seconds Sodium (135-145) mmol/L Potassium (3.5-5.0) mmol/L Chloride (101-111) mmol/L Carbon Dioxide (22-32) mmol/L Anion Gap (2-11) mmol/L BUN (6-24) mg/dL Creatinine (0.51-0.95) mg/dL Est GFR ( Amer) (>60) Est GFR (Non-Af Amer) (>60) BUN/Creatinine Ratio (8-20) Glucose (70-100) mg/dL Lactic Acid 0.9 (0.5-2.0) mmol/L Uric Acid (2.3-6.6) mg/dL Calcium (8.6-10.3) mg/dL Total Bilirubin (0.2-1.0) mg/dL AST (13-39) U/L ALT (7-52) U/L Alkaline Phosphatase (34-104) U/L C-Reactive Protein (<8.01) mg/L Total Protein (6.4-8.9) g/dL Albumin (3.2-5.2) g/dL Globulin (2-4) g/dL Albumin/Globulin Ratio (1-3) Urine Color Yellow Urine Appearance Clear Urine pH 5.0 (5-9) Ur Specific [place] 1.026 (1.010-1.030) Urine Protein 1+(30 mg/dl) A (Negative) Urine Ketones Negative (Negative) Urine Blood 1+ A (Negative) Urine Nitrate Positive A (Negative) Urine Bilirubin Negative (Negative) Urine Urobilinogen Negative (Negative) Ur Leukocyte Esterase 1+ A (Negative) Urine WBC (Auto) 2+(11-20/hpf) A (Absent) Urine RBC (Auto) 2+(6-10/hpf) A (Absent) Ur Squamous Epith Cells Present A (Absent) Urine Bacteria 3+ A (Absent) Urine Glucose Negative (Negative) Urine Ascorbic Acid * A (Negative) Result Diagrams: 01/23/19 13:25 01/23/19 13:25 Lab Statement: Any lab studies that have been ordered have been reviewed, and results considered in the medical decision making process. - Radiology Knee XR Radiology Interpretation Completed By: Radiologist Summary of Radiographic Findings: Knee xray shows: 1. OSTEOPENIA. 2. STATUS POST RIGHT KNEE ARTHROPLASTY. 3. NO ACUTE OSSEOUS INJURY. THE DEGREE OF OSTEOPENIA MAY MAKE A NONDISPLACED FRACTURE. RADIOGRAPHICALLY OCCULT. IF SYMPTOMS PERSIST, RECOMMEND REPEAT IMAGING. ED physician has reviewed this report. CXR Radiology Interpretation Completed By: Radiologist Summary of Radiographic Findings: CXR shows HYPERINFLATION. NO ACTIVE CARDIOPULMONARY DISEASE. An ED physician has reviewed this report. - CT Lower Extremity CT CT Interpretation Completed By: Radiologist Summary of CT Findings: Lower extremity CT shows periprosthetic fracture at the junction of the distal metaphysis and condyles of the. femur with approximate 23 degrees apex medial angulation. Predisposing decreased bone density. No additional fracture visualized. Large lipohemarthrosis. Diffuse advanced skeletal muscle atrophy. ED Physician has reviewed this report. Lower Extremity Course/Dx - Course Course Of Treatment: 88 year old female reports to the ED with a chief complaint of left knee pain worsening since falling while attempting to ambulate 10 days ago. She reports knee swelling that started after the fall. Pain rated 8/10 in severity. Movement aggravates the pain. Rest alleviates the pain. She also reports fever, chills, and diaphoresis. She denies back pain, erythema of eyes, sore throat, CP, SOB, cough, abdominal pain, N/V, dysuria, hematuria, myalgia, rash, or dizziness. Negative history of rheumatoid arthritis. Physical exam reveals torticollis of the neck to the right, midline incision on the left knee, significant effusion and warmth of the left knee. CXR shows HYPERINFLATION. NO ACTIVE CARDIOPULMONARY DISEASE. Lower extremity CT shows periprosthetic fracture at the junction of the distal metaphysis and condyles of the femur with approximate 23 degrees apex medial angulation. redisposing decreased bone density. No additional fracture visualized. Large lipohemarthrosis. Diffuse advanced skeletal muscle atrophy. Knee xray shows: 1. OSTEOPENIA. 2. STATUS POST RIGHT KNEE ARTHROPLASTY. 3. NO ACUTE OSSEOUS INJURY. THE DEGREE OF OSTEOPENIA MAY MAKE A NONDISPLACED FRACTURE RADIOGRAPHICALLY OCCULT. IF SYMPTOMS PERSIST, RECOMMEND REPEAT IMAGING. Laboratory results show Plt count 139, absolute monos 0.9, BUN 25, BUN/ Creatinine Ratio 49.0, C-Reactive Protein 126.19, total protein 6.0 L, urine protein 1+(30mg/dl), urine blood 1+A, urine nitrate positive A, ur leukocyte esterase 1+A, urine WBC (auto) 2+(11-20/hpf) A, urine RBC (Auto) 2+(6-10/hpf) A , urine bacteria 3+ A, and urine ascorbic acid *A. Diagnosis is jennifer-prosthetic fracture around prosthetic knee and urinary tract infection. I discussed case with Dr. Baker from orthopedics, and he will come see the pt in the ED. I spoke with Dr. Whipple, hospitalist, about the case, and she states that the pt can be discharged home. I recommended that she follow up with primary care in 2- 3 days. She understood and agreed with my plan of discharge. Dr. Whipple will write rx for abx. - Diagnoses Provider Diagnoses: UTI (urinary tract infection), Jennifer-prosthetic fracture around prosthetic knee - Physician Notifications Discussed Care Of Patient With: Harrison Baker - orthopedics Time Discussed With Above Provider: 15:43 Instructed by Provider To: Other - Dr. Baker will come see the pt in the ED. 1545 - Dr. Whipple aware of pt's case, and recommends discharge home. Discharge ED - Sign-Out/Discharge Documenting (check all that apply): Patient Departure - discharge - Discharge Plan Condition: Stable Disposition: HOME Patient Education Materials: Swollen Knee Joint (ED), Urinary Tract Infection in Older Adults (ED) Referrals: Jewels Whipple DO [Primary Care Provider] - 3 Days Additional Instructions: Follow up with your primary care provider in 2 to 3 days. Return to the Emergency Department with new or worsening symptoms. - Billing Disposition and Condition Condition: STABLE Disposition: Home - Attestation Statements Document Initiated by Scribe: Yes Documenting Scribe: Richie Gonzalez Provider For Whom Adolfo is Documenting (Include Credential): Dr. Roberto Shoemaker MD. Scribe Attestation: Richie Zaldivar scribed for Dr. Roberto Shoemaker MD. on 02/03/19 at 2136. Scribe Documentation Reviewed: Yes Provider Attestation: The documentation as recorded by the [email or web address] accurately reflects the service I personally performed and the decisions made by me, Dr. Roberto Shoemaker MD. Status of Scribe Document: Viewed
[2019-01-23 18:31] VITALS: BP 138/72
--- NOTE | 2019-01-23 18:45 | CONS ---
CONSULTATION REPORT: DATE OF CONSULT: 01/23/19 - EMERGENCY DEPT PRIMARY CARE PROVIDER: Jewels Whipple DO, at [facility]. CHIEF COMPLAINT: Left knee pain. HISTORY OF PRESENT ILLNESS: Ms. Adams is an 88-year-old female who has a past history of CVA, who is sent to the emergency room for evaluation of severe left knee pain. The patient has been complaining of left knee pain and was seen by the nurse practitioner on 01/22/19 at [facility]. At that time, Doppler was ordered. The knee was mildly swollen and the patient was unable to provide any discrete history of any trauma. Her pain has been controlled with p.r.n. morphine, which she has had available. The patient has intermittently said that she slid out of a chair or was dropped by the nursing staff at [facility]. I personally have never seen her out of her bed. In the ER, the patient was found to have a periprosthetic left knee fracture. PAST MEDICAL HISTORY: 1. Hypertension. 2. Seizure disorder. 3. OA. 4. B12 deficiency. 5. Chronic back pain. 6. History of kidney stones. 7. Depression. 8. History of sacral decubitus ulcer. 9. Ischemic CVA with residual right-sided hemiparesis, dysarthria, and dysphagia. PAST SURGICAL HISTORY: Ureteral stent. MEDICATIONS: 1. Sertraline 100 mg p.o. daily. 2. Dilantin 100 mg p.o. b.i.d. 3. Eyelid cleanser OCuSOFT Lid Scrub 1 application both eyes b.i.d. 4. Muscle Rub cream 1 application q.12 hours p.r.n. pain. 5. MS Contin 15 mg p.o. q.h.s. 6. Roxanol 5 mg p.o. q.4 hours p.r.n. pain. 7. MOM 30 mL p.o. q.4 hours p.r.n. constipation. 8. Klonopin 1 mg p.o. b.i.d. 9. MiraLAX 17 g p.o. daily. 10. Calmoseptine 1 application topically b.i.d. 11. Claritin 10 mg p.o. daily. 12. Lidocaine patch apply topically daily. 13. Dulcolax suppository 10 mg [place] daily p.r.n. constipation. 14. Aspirin 81 mg p.o. daily. 15. Amlodipine 2.5 mg p.o. daily. 16. Tylenol Extra Strength 1000 mg p.o. t.i.d. p.r.n. pain. ALLERGIES: PENICILLIN, OXYBUTYNIN, AMBIEN, and OXYCODONE. FAMILY HISTORY: Unobtainable from the patient. SOCIAL HISTORY: The patient is a long-term resident of [facility]. She is nonambulatory. I have been unable to get a hold of the patient's power of patent prosecution attorney, Johnson Prescott or her daughter, Pepper Adams. I was able to get in contact with her friend, Giuliana Holley, though Giuliana is out of town. The patient' s son, however, did present to [facility] after her transfer to the hospital. The patient does not smoke or drink alcohol. REVIEW OF SYSTEMS: Unobtainable from the patient, though she does complain of pain in the left knee. PHYSICAL EXAM: Blood pressure 135/72, pulse 93, respirations 16, temp 98.6, O2 sat 93% on room air. General: The patient is a well-developed, elderly female seen lying in the stretcher, in no acute distress. HEENT: Pupils are equal and round. Extraocular muscles are intact. Oropharynx is clear and moist. Cardiac: Normal S1, S2. Regular rate and rhythm. I do not appreciate any murmurs. There is no pitting edema of the lower extremities. Pulmonary: Lungs are clear to auscultation anteriorly. Abdomen: Bowel sounds are present. Abdomen is soft, nontender, nondistended. Musculoskeletal: There is no cyanosis or clubbing of the digits. There is full active range of motion of the left upper extremity. The right upper extremity is contracted and is hemiparetic. She does not actively move her either lower extremity. The left knee is mildly swollen. It is warm to touch compared to the right. She does not have a tense effusion. Skin is warm and dry. There are no rashes. Neuro exam is deferred currently. Psych: The patient is alert. She is a generally poor historian. DIAGNOSTIC STUDIES/LAB DATA: WBC 5.5, hemoglobin 12.3, hematocrit 37, platelets 139. INR 1.09. Sodium 142, potassium 3.7, chloride 104, CO2 of 31, BUN 25, creatinine 0.51, glucose 83, lactic acid 0.9, uric acid 3.0, calcium 9.1. Bilirubin 0.6, AST 19, ALT 17, alk phos 51. CRP 126.19. Albumin 3.8. Urinalysis reveals clear urine with specific gravity of 1.026, positive blood, positive nitrites, positive leukocyte esterase and bacteria. Knee x-ray: Osteopenia, status post right knee arthroplasty. Left lower extremity CT reveals periprosthetic fracture at the junction of the distal metaphysis and condyles of the femur with approximately 25 degrees apex medial angulation. No additional fracture is visualized. There is large lipohemarthrosis, diffuse advanced skeletal muscle atrophy. Chest x-ray: Hyperinflation. No active cardiopulmonary disease. ASSESSMENT AND PLAN: Ms. Adams is an 88-year-old, essentially bedbound female who has a history of past cerebrovascular accident and seizure disorder, who presents to the emergency room with complaints of severe left knee pain and is found to have a periprosthetic left knee fracture. 1. Periprosthetic left knee fracture. At this point, the patient is going to be treated nonoperatively. The patient was seen in consultation by Dr. Baker and GASTON Marcos, in the emergency room. It is recommended that the patient have a knee immobilizer to use during transfers, bathing and any time she is having significant pain. She will continue with p.r.n. morphine. The patient should be nonweightbearing on the left leg. I was unable to get a hold of any family members for [place], though I did speak with her friend, Giuliana, who is listed as an emergency contact. 2. Urinary tract infection. The patient's urinalysis is grossly abnormal consistent with urinary tract infection. She will be started on Bactrim DS 1 tab p.o. b.i.d. x6 more days as she received a dose of ceftriaxone in the emergency room. 3. Seizure disorder. She will be maintained on her usual medications at [facility]. 4. Hypertension. BP is under acceptable control. She will continue on her usual dose of amlodipine. 5. Anxiety. Continue clonazepam. 6. The patient will be returning to [facility] this afternoon. I have already spoken to Nursing at [facility] to inform them of the fracture, weightbearing status, and plan for urinary tract infection treatment. 7. The patient is a DNR. [id number]/[facility] #: [id number] [facility]ENTER[facility]
--- NOTE | 2019-01-23 19:18 | CONS ---
ORTHOPEDIC CONSULT: DATE OF CONSULT: 01/23/19 CHIEF COMPLAINT: Left knee pain and swelling. HISTORY OF PRESENT ILLNESS: Rica Adams is an 88-year-old female who resides at [facility]. She was brought to the emergency room with complaints of left knee pain and swelling. As per the patient, who may or may not be a reliable historian, she fell out of her chair after being ta jn to the dining aldana landing on the knee. Since that time, she has had pain in the knee and sandra castillo has been in bed for the last 10 days. She is not normally ambulatory but she is able to answer q uestions in what appears appropriate ways. She denies numbness or tingling in the extremity. She is afebrile. PAST MEDICAL HISTORY: Hypertension, history of seizure disorder, osteoarthritis, history of vitamin B12 deficiency, chronic back pain, depression, ureteral stent placed in relationship to kidney stones , history of sacral decubitus ulcer, and ischemic CVA with residual right-sided hemiparesis, dysarthr ia and dysphagia. CURRENT MEDICATIONS: 1. Amlodipine 2.5 mg daily. 2. Lidocaine patch 4% applied to lower back topically daily. 3. Aspirin 81 mg daily. 4. GlycoLax powder 17 g daily p.r.n. 5. Loratadine 10 mg daily p.r.n. 6. Zoloft 100 mg daily. 7. Clonazepam 1 mg q.a.m. and q.h.s. 8. Dilantin 100 mg b.i.d. 9. Acetaminophen 325 mg p.r.n. pain. 10. Morphine concentrate 5 mg q.4 hours p.r.n. pain. ALLERGIES: PENICILLIN, OXYBUTYNIN, ZOLPIDEM, and OXYCODONE. FAMILY HISTORY: Negative for heart disease, diabetes, or cancer. SOCIAL HISTORY: She is a resident of [facility]. She is bedbound or wheelchair bound at her baseline. Her healthcare proxy is Bernardo Adams who is her son. She denies tobacco, alcohol, or recreational drug use. REVIEW OF SYSTEMS: A 14 systems are reviewed with the patient today. She admits to left knee pain. All other systems are negative. PHYSICAL EXAM: Vital Signs: Temperature 98.6, pulse 93, blood pressure 135/72. In general, she is a well-developed, well-nourished female, lying in the emergency room stretcher, in no acute distress. HEENT: Normocephalic, atraumatic. Hearing and vision are grossly intact with hearing aids. Extrao cular movements are intact. Neck: Trachea midline and symmetrical. Chest: Unlabored breathing. Karina ngs are clear to auscultation. No wheezes, rales, or rhonchi appreciated. Cardio: Regular rate and rhythm. No murmurs, rubs, or gallops noted. Abdomen: Soft, nontender, bowel sounds present. Left lower extremity: Skin is warm and intact without open wounds or abrasions. There is an effusion at the knee. The patient has what appears like atrophy of the left foot with chronic equinus. Sensatio n is intact. She is tender to palpation over the distal femur and proximal tibia, but nontender over the left hip, left ankle or foot. She is unable to move the knee without pain. She has a 2+ dorsal is pedis pulse. IMAGING: X-ray is negative for acute obvious bony abnormalities. CT scan shows a periprosthetic fra cture at the junction of the distal metaphysis and condyles of the femur with distal femur and proxim al tibia prosthetics in place. IMPRESSION: Left knee periprosthetic fracture. PLAN: After discussion with Dr. Baker, the patient will be placed in a knee immobilizer for nonoper ative treatment. The immobilizer should be used for transfer and for movement outside of the bed. W fabienne she is in bed though, she can go without the immobilizer. Tramadol and Tylenol can be used for pain. She can follow up with Orthopedics in 10 to 14 days and should use the immobilizer for the nex t 10 days at least. GASTON PACHECO [id number]/[facility] #: [id number]
== END 2019-01-23 19:15 | disposition home or self-care (01) ==
LOC: ED 12:52
DX: N39.0 Urinary tract infection, site not specified (principal); M97.12XA Periprosthetic fracture around internal prosthetic left knee joint, initial encounter; Z88.0 Allergy status to penicillin; R50.9 Fever, unspecified; Z79.899 Other long term (current) drug therapy; I10 Essential (primary) hypertension; M32.9 Systemic lupus erythematosus, unspecified; Z86.73 Personal history of transient ischemic attack (TIA), and cerebral infarction without residual deficits; Z87.891 Personal history of nicotine dependence; Z79.82 Long term (current) use of aspirin
CPT/HCPCS: 36415; 71045; 80053; 81003; 81015; 83605; 84550; 85025; 85610; 85730; 86140; 87040; 87077; 87086; 87186; 96374; 99284; A9270-GY; J0696

== ENCOUNTER 2020-01-25 00:09 | Inpatient (IN) ==
[2020-01-25] MEDS ORDERED: NS 0.9% 1000 ml BAG 1,000 ML IV.FLUID IV ONE (00:12)
[2020-01-25 00:57] LABS: Influenza A Molecular Negative (Negative); Influenza B Molecular Negative (Negative)
[2020-01-25 01:01] LABS: Hematocrit 36 % (35-47); Hemoglobin 12.2 g/dL (12.0-16.0); Mean Corpuscular HGB Conc 34 g/dL (31-36); Mean Corpuscular Hemoglobin 31 pg (27-31); Mean Corpuscular Volume 91 fL (80-97); Mean Platelet Volume 9.6 fL (7.4-10.4); Platelet Count 135 10^3/uL (150-450); Red Blood Count 3.92 10^6 /uL (3.70-4.87); Red Cell Distribution Width 15 % (10-15); White Blood Count 15.1 10^3/uL (3.5-10.8)
[2020-01-25 01:10] LABS: Activated Partial Thrombo Time 31.2 seconds (26.0-38.0); INR 1.12 (0.82-1.09)
[2020-01-25 01:17] LABS: ALT 126 U/L (7-52); AST 269 U/L (13-39); Albumin 3.7 g/dL (3.2-5.2); Albumin/Globulin Ratio 1.9 (1-3); Alkaline Phosphatase 114 U/L (34-104); Anion Gap 9 mmol/L (2-11); BUN/Creatinine Ratio 37.1 (8-20); Blood Urea Nitrogen 23 mg/dL (6-24); CO2 Carbon Dioxide 25 mmol/L (22-32); Calcium 8.3 mg/dL (8.6-10.3); Chloride 110 mmol/L (101-111); EGFR African American 110.2 (>60); EGFR Non-African American 91.1 (>60); Glucose 125 mg/dL (70-100); Potassium 3.4 mmol/L (3.5-5.0); Sodium 144 mmol/L (135-145); Total Protein 5.7 g/dL (6.4-8.9)
[2020-01-25 01:33] LABS: Troponin I 0.13 ng/mL (<0.03)
[2020-01-25 01:43] LABS: ABS Lymphocytes 0.4 10^3/ul (1.0-4.8); ABS Monocytes 1.2 10^3/ul (0-0.8); ABS Neutrophils 13.6 10^3/ul (1.5-7.7); Lymphocyte % 2.4 %
[2020-01-25] MEDS ORDERED: Iohexol 300 (CONTRAST) 10 ML SDV IV ONE (01:54)
[2020-01-25] MEDS ORDERED: metroNIDAZOLE IV 500 MG/100ML 500 MG/100 ML BAG IVPB ONE (02:19)
[2020-01-25] MEDS ORDERED: Levofloxacin 750 MG IVPREMIX 750 MG/150 ML BAG IVPB ONE (02:19)
[2020-01-25] MEDS ORDERED: NS 0.9% 1000 ml BAG 1,000 ML IV SCH (03:15)
[2020-01-25] MEDS ORDERED: Magnesium Hydroxide LIQ 30 ML UDC PO PRN (03:28)
[2020-01-25 03:41] LABS: Urine Appearance Cloudy; Urine Bilirubin Negative (Negative); Urine Blood 3+ (Negative); Urine Color Amber; Urine Glucose Negative (Negative); Urine Ketones Negative (Negative); Urine Nitrite Positive (Negative); Urine Protein 1+(30 mg/dL) (Negative); Urine Specific Gravity 1.018 (1.010-1.030); Urine Urobilinogen Negative (Negative)
[2020-01-25 03:52] LABS: Urine Bacteria 1+ (Absent); Urine Red Blood Cell 3+(>10/hpf) (Absent); Urine Squamous Epithelial Cell Present (Absent); Urine White Blood Cell 3+(>20/hpf) (Absent)
[2020-01-25] MEDS: Morphine ORAL CONCENTRATE 5 MG/0.25 ML ORAL.SYRIN PO PRN ×2 (06:03→12:52)
[2020-01-25] MEDS: Enoxaparin 40 MG/0.4 ML SYR SUBCUT SCH (06:03)
[2020-01-25 07:47] LABS: Troponin I 0.07 ng/mL (<0.03)
[2020-01-25] MEDS ORDERED: Potassium Chloride LIQUID 20 MEQ/15 ML LIQUID PO ONE (08:41)
[2020-01-25] MEDS ORDERED: cefTRIAXone 1 gm/50 mL NS BAG 1 GM/50 ML BAG IVPB SCH (09:00)
[2020-01-25] MEDS: Morphine ER 30 mg TAB ** extended release PO SCH ×2 (09:09→19:43)
[2020-01-25 09:23] LABS: Troponin I 0.06 ng/mL (<0.03)
[2020-01-25] MEDS: Lactulose 30 ml UDC PO SCH ×2 (16:17→19:43)
[2020-01-26] MEDS: cefTRIAXone 1 gm/50 mL NS BAG 1 GM/50 ML BAG IVPB SCH (03:54)
[2020-01-26] MEDS: Enoxaparin 40 MG/0.4 ML SYR SUBCUT SCH (05:06)
[2020-01-26 07:03] LABS: ABS Lymphocytes 1.4 10^3/ul (1.0-4.8); ABS Monocytes 0.8 10^3/ul (0-0.8); ABS Neutrophils 6.6 10^3/ul (1.5-7.7); Hematocrit 30 % (35-47); Lymphocyte % 15.5 %; Mean Corpuscular HGB Conc 33 g/dL (31-36); Mean Corpuscular Hemoglobin 30 pg (27-31); Mean Corpuscular Volume 91 fL (80-97); Mean Platelet Volume 9.9 fL (7.4-10.4); Platelet Count 107 10^3/uL (150-450); Red Blood Count 3.31 10^6 /uL (3.70-4.87); Red Cell Distribution Width 15 % (10-15); White Blood Count 8.8 10^3/uL (3.5-10.8)
[2020-01-26 07:20] LABS: BUN/Creatinine Ratio 43.2 (8-20); Calcium 7.8 mg/dL (8.6-10.3); EGFR African American 163.7 (>60); EGFR Non-African American 135.3 (>60); Magnesium 1.7 mg/dL (1.9-2.7); Phosphorus 2.7 mg/dL (2.5-5.0); Potassium 3.2 mmol/L (3.5-5.0)
[2020-01-26] MEDS: Morphine ER 30 mg TAB ** extended release PO SCH ×2 (08:45→21:54)
[2020-01-26] MEDS ORDERED: Ondansetron 4 mg VIAL 2 MG/ML 2 ml VIAL IV ONE (09:36)
[2020-01-26] MEDS: Lactulose 30 ml UDC PO SCH ×3 (11:00→21:53)
[2020-01-27] MEDS: cefTRIAXone 1 gm/50 mL NS BAG 1 GM/50 ML BAG IVPB SCH (04:24)
[2020-01-27] MEDS: Enoxaparin 40 MG/0.4 ML SYR SUBCUT SCH (06:04)
[2020-01-27] MEDS: Lactulose 30 ml UDC PO SCH ×3 (08:43→20:49)
[2020-01-27 08:48] LABS: ABS Lymphocytes 1.4 10^3/ul (1.0-4.8); ABS Monocytes 0.5 10^3/ul (0-0.8); ABS Neutrophils 4.4 10^3/ul (1.5-7.7); Hematocrit 33 % (35-47); Hemoglobin 10.7 g/dL (12.0-16.0); Lymphocyte % 22.6 %; Mean Corpuscular HGB Conc 32 g/dL (31-36); Mean Corpuscular Hemoglobin 29 pg (27-31); Mean Corpuscular Volume 90 fL (80-97); Mean Platelet Volume 9.7 fL (7.4-10.4); Platelet Count 133 10^3/uL (150-450); Red Blood Count 3.67 10^6 /uL (3.70-4.87); Red Cell Distribution Width 15 % (10-15); White Blood Count 6.3 10^3/uL (3.5-10.8)
[2020-01-27] MEDS: Morphine ER 30 mg TAB ** extended release PO SCH ×2 (08:55→20:49)
[2020-01-27 09:09] LABS: BUN/Creatinine Ratio 25.6 (8-20); Calcium 7.8 mg/dL (8.6-10.3); EGFR African American 188.1 (>60); EGFR Non-African American 155.5 (>60); Potassium 3.2 mmol/L (3.5-5.0)
[2020-01-27] MEDS ORDERED: Potassium Chloride LIQUID 20 MEQ/15 ML LIQUID PO ONE ×2 (09:57→13:00)
[2020-01-28] MEDS: cefTRIAXone 1 gm/50 mL NS BAG 1 GM/50 ML BAG IVPB SCH (04:30)
[2020-01-28] MEDS: Enoxaparin 40 MG/0.4 ML SYR SUBCUT SCH (06:15)
[2020-01-28 07:14] LABS: ABS Lymphocytes 1.2 10^3/ul (1.0-4.8); ABS Monocytes 0.4 10^3/ul (0-0.8); ABS Neutrophils 3.9 10^3/ul (1.5-7.7); Hematocrit 33 % (35-47); Hemoglobin 11.2 g/dL (12.0-16.0); Lymphocyte % 21.6 %; Mean Corpuscular HGB Conc 34 g/dL (31-36); Mean Corpuscular Hemoglobin 30 pg (27-31); Mean Corpuscular Volume 90 fL (80-97); Mean Platelet Volume 9.2 fL (7.4-10.4); Platelet Count 136 10^3/uL (150-450); Red Blood Count 3.71 10^6 /uL (3.70-4.87); Red Cell Distribution Width 14 % (10-15); White Blood Count 5.5 10^3/uL (3.5-10.8)
[2020-01-28 07:30] LABS: BUN/Creatinine Ratio 14.3 (8-20); Calcium 7.7 mg/dL (8.6-10.3); EGFR African American 213.1 (>60); EGFR Non-African American 176.1 (>60); Potassium 3.3 mmol/L (3.5-5.0)
[2020-01-28] MEDS: Morphine ER 30 mg TAB ** extended release PO SCH (10:20)
[2020-01-28] MEDS: Lactulose 30 ml UDC PO SCH (10:22)
[2020-01-28 11:48] VITALS: BP 144/53
== END 2020-01-28 15:50 | DRG 872 ==
LOC: ED 00:09 → MEDTELE 03:25
PROVIDERS: ADMIT Internal Medicine; ATTEND Internal Medicine